=== PATIENT | female | born 1960 | race Caucasian/White ===

== ENCOUNTER 2020-08-08 11:51 | Emergency (ER) | payer OTHER, SELFPAY ==
[2020-08-08] VITALS (9 sets, daily range): BP systolic 104–126; BP diastolic 60–84; PULSE 72–92; RESP 14–18; TEMP 36.8; O2SAT 92–98; BMI 34.2
--- NOTE | 2020-08-08 | ECG_ITS ---
Test Reason : CHEST PAIN Blood Pressure : / mmHG Vent. Rate : 078 BPM Atrial Rate : 078 BPM P-R Int : 144 ms QRS Dur : 088 ms QT Int : 418 ms P-R-T Axes : 034 035 040 degrees QTc Int : 476 ms Sinus rhythm with occasional Premature ventricular complexes Abnormal ECG When compared with ECG of 24-NOV-2010 09:28, Premature ventricular complexes are now Present Referred By: Generic ED Physician Electronically Signed By:RAYO COPELAND
--- NOTE | ~2020-08-08 | XR_ITS ---
EXAMINATION: XR CHEST CLINICAL INFORMATION: Pleuritic chest pain COMPARISON: None TECHNIQUE: Frontal view of the chest was obtained. FINDINGS: No significant abnormality is noted involving the heart, lungs, mediastinum, bony thorax or soft tissues. XR/XR chest 1V IMPRESSION: Unremarkable examination.
--- NOTE | ~2020-08-08 | CT_ITS ---
EXAMINATION: CTA CHEST AND CT ABDOMEN AND PELVIS WITH CONTRAST CLINICAL INFORMATION: Epigastric discomfort. Elevated LFTs. Sclerotic chest pain. COMPARISON: Chest performed earlier today 08/08/2020. CTA chest abdomen and pelvis 01/03/2028. CTA chest 11/24/2010. TECHNIQUE: 5 mm thin axial and reformatted 5 mm thin sagittal and coronal images of chest were obtained following rapid IV administration of 100 mL Omnipaque 350. Subsequently axial 5 mm thin and reformatted 2 mm thin sagittal and coronal images of abdomen and pelvis were obtained. DLP [id number] FINDINGS: CHEST: There is good opacification of pulmonary artery and its branches without intraluminal filling defect. The pulmonary artery caliber is normal. The thoracic aorta is of normal caliber. No aneurysm or dissection seen. There is normal cervicocerebral arch branching. The central trachea and the bronchi widely patent. No abnormal-sized lymph nodes or mass seen. Heart size is normal. No pericardiac effusion seen. Thyroid lobes are symmetrical and normal. The lungs are well-expanded and clear of acute pneumonic process.. There is no pulmonary nodule, mass, consolidation or groundglass density. There is minimal compressive atelectasis in left lung base. There is no pleural effusion, calcification or thickening. There are small bilateral axilla lymph nodes. The largest left axillary lymph node measures 1.2 cm. The bony thorax is grossly unremarkable. ABDOMEN AND PELVIS: the liver is normal size, shape and diffusely hypoattenuated. No focal lesion or intrahepatic ductal dilatation seen. The gallbladder has been surgically removed. Visualized spleen, pancreas and bilateral adrenal glands are unremarkable. Both kidneys are normal size, shape and position. There is 5 mm and 1 mm nonobstructive radiopaque calculi mid pole left kidney. No additional radiopaque calculi seen. There is no caliectasis or hydronephrosis seen. The abdominal aorta is normal caliber. There is a retroaortic left renal vein There are no abnormal lymph nodes or mass seen. There is diffuse sigmoid and scattered rest the colon diagnosis without mural thickening or colonic distention. The small bowel loops are normal caliber. The appendix is normal caliber. The stomach is nondistended and appears unremarkable. Abdominal wall appears unremarkable. Imaging through the pelvis reveals unremarkable nondistended urinary bladder. The uterus is anteverted and appears unremarkable. There is 2.0-2.5 cm left ovarian cyst. A 2 cm exophytic right ovarian cyst is seen as well. No abnormal pelvic lymph nodes seen. Bone windows reveal degenerative disc changes L2-L3 and L3-L4 disc level with moderate ventral spondylosis at the L3-L4 disc level. No fracture or lytic process seen. CT/CT angio chest PE protocol IMPRESSION: No evidence of PE. No evidence of aortic aneurysm or dissection. Minimal compressive atelectasis left lower lobe. No evidence of pleural effusion or thickening. Diffuse sigmoid and scattered rest of colon diverticulosis but no evidence of diverticulitis. Nonobstructive left renal calculi.
--- NOTE | 2020-08-08 12:12 | ED.CHESTPAIN ---
HPI - Chest Pain General Chief Complaint: Chest Pain Stated Complaint: chest pain Time Seen by Provider: 08/08/20 13:18 Source: patient Mode of arrival: ambulatory Limitations: no limitations History of Present Illness HPI narrative: Patient presents to the ED for epigastric radiating to the right chest and also pleuritic chest pain. Patient states right-sided pain on deep inspiration. Patient denies any acid burning sensation, fever, chills, coughing, swelling of lower extremities, calf pain, nausea, or vomiting. Patient states was having symptoms last week then resolved on its own. Patient states last night she started having the chest pain and this morning she woke up sweating with the chest pain. Patient denies any recent trauma, any drug use, dizziness, passing out, recent surgery, recent long travel, or any estrogen hormonal/ control use. Patient does states family historyof MA. MD complaint: chest pain Related Data Home Medications Medication Instructions Recorded Confirmed atenolol 25 mg tablet 25 mg PO DAILY 01/26/20 08/08/20 atorvastatin 10 mg tablet 10 mg PO DAILY 01/26/20 08/08/20 cetirizine 10 mg tablet 10 mg PO DAILY 01/26/20 08/08/20 famotidine 20 mg tablet 20 mg PO DAILY 01/26/20 08/08/20 flu vacc [id number] 6mos up(PF) ml IM 01/26/20 08/08/20 hydrochlorothiazide 25 mg tablet 25 mg PO DAILY 01/26/20 08/08/20 hydroxyzine HCl 25 mg tablet 25 mg PO TID 01/26/20 08/08/20 losartan 25 mg tablet 25 mg PO DAILY 01/26/20 08/08/20 omeprazole 20 mg capsule,delayed 20 mg PO DAILY 01/26/20 08/08/20 release varicella-zoster glycoE [id number] 01/26/20 08/08/20 adj(PF) 50 mcg/0.5 mL IM susp, kit venlafaxine 75 mg capsule,extended 75 mg PO DAILY 01/26/20 08/08/20 release 24 hr Previous Rx's Medication Instructions Recorded lorazepam 0.5 mg tablet 0.5 mg PO BEDTIME PRN #15 tab 02/01/20 ketorolac 10 mg PO QID PRN 5 Days #20 tab 08/08/20 Allergies Allergy/AdvReac Type Severity Reaction Status Date / Time Sulfa (Sulfonamide Allergy Unknown RASH Verified 08/08/20 12:32 Antibiotics) [SULFA (SULFONAMIDE ANTIBIOTICS)] Sufa drugs Allergy Unknown unknown Uncoded 08/08/20 11:08 Sulfa drugs Allergy Unknown Unknown Uncoded 08/08/20 11:08 Review of Systems Review of Systems: Yes all other systems are reviewed and are negative Constitutional: Constitutional: Reports as per HPI and Reports no additional constitutional complaints Eyes: Eyes: Reports as per HPI and Reports no additional eye complaints ENT: Reports system reviewed and no additional complaints, except as documented and Reports as per HPI Cardiovascular: Cardiovascular: Reports as per HPI, Reports no additional cardiovascular complaints and Reports chest pain Respiratory: Respiratory: Reports as per HPI, Reports no additional respiratory complaints and Reports pain on inspiration Gastrointestinal: Gastrointestinal: Reports as per HPI, Reports no additional gastrointestinal complaints and Reports abdominal pain Genitourinary: Genitourinary: Reports no additional female genitourinary complaints and Reports as per HPI Musculoskeletal: Musculoskeletal: Reports no additional musculoskeletal complaints and Reports as per HPI Neurologic: Reports system reviewed and no additional complaints, except as documented and Reports as per HPI Psychiatric: Psychiatric: Reports no additional psychiatric complaints and Reports as per HPI [facility] Social History Social History Alcohol intake: current Alcohol intake frequency: a few times a month Smoking Status: Never smoker Use of substances other than those prescribed or required for medical reasons: No Advance Directives: No Advance Directives Information Provided: No Physical Exam Vital Signs: Vital Signs: Last Vital Signs Temp 98.3 F 08/08/20 12:05 Pulse 74 08/08/20 15:07 Resp 18 08/08/20 15:07 BP 124/75 08/08/20 15:07 Pulse Ox 92 08/08/20 15:07 Body Mass Index 34.2 Const: General: cooperative, healthy appearing, comfortable, no acute distress, well developed, alert, awake and Physically active Orientation/consciousness: patient oriented x3 HENMT: Head: Yes normal to inspection, Yes No palpable skull fracture present, Yes normocephalic and Yes atraumatic Eyes: General: appearance normal, both eyes and all related structures Neck: Neck: Yes normal visual inspection, Yes full ROM, Yes no lymphadenopathy, Yes no meningeal signs, Yes trachea midline, Yes supple and No tender Chest: Other: Positive for right chest wall tenderness on palpation. Chest palpation & inspection: normal inspection of the chest Resp: Effort & Inspection: normal respiratory effort and able to speak in complete sentences Auscultation: clear to auscultation bilaterally Cardio: Jugular venous distension: no JVD Heart sounds: S1 normal heart sound present and S2 normal heart sound present GI: Inspection: Yes normal to inspection and No abdominal wall ecchymosis Palpation (GI): Soft to palpation, not firm, nontender, no guarding and not rigid : General: No CVA tenderness and Yes no CVA tenderness Back/Spine/Pelvis: Back: no CVA tenderness, No CVA tenderness and No back tenderness Skin: General skin exam: no rashes or lesions noted and elasticity normal Neuro: General: patient oriented x3, gait normal, no meningeal signs and CN's II-XI intact bilaterally Cranial nerves: Yes CN's II-XII intact bilaterally Extrem: Other: Bilateral lower extremities negative for calf tenderness, swelling, redness, or pitting edema. General: Yes normal to inspection and Yes full ROM Psych: Appearance: grossly normal, well kempt and not disheveled Course Course Course Narrative: Patient with some sweating with chest pain may be anxiety induced been due to age will have a medical evaluation. Will have labs including troponin, and BNP, EKG. Chest x-ray will be sent. With epigastric pain/midsternal pain radiating to right side of chest will evaluate for atypical MA. Also with additional pleuritic chest pain. Evaluate for PE. Chest x-ray rule for pneumonia. Will give aspirin and nitrate although this is not typical ACS presentation. Reevaluation(s) Reevaluation #1: Patient pain did not improve with nitrates or GI cocktail. EKG negative for STEMI. First troponin was negative and BNP negative. Can not give more Nitrate due to soft blood pressure. Will send patient for chest CT a to rule out PE pneumonia and sent for abdominal CT scan to make sure there is no dilated CBD or any abdominal medical/surgical etiology. Reevaluation #2: Chest CTA negative for PE or pneumonia. Abdominal CT scan negative for abdominal/medical surgical emergent etiology. Chest x-ray negative for pneumonia. Patient vaccinated for COVID-19 so COVID swab not indicated. Awaiting for results of 2nd troponin. Due to patient still having pain after GI cocktail and 1 nitrate will give Toradol. Once again patient describes pain as pleuritic with this chest pain on inspiration. Reevaluation #3: Second troponin came back negative. Patient's epigastric and chest pain on inspiration resolved with Toradol. Diagnosis pleuritic chest pain. Patient is not having NSTEMI. EKG normal and troponins twice were negative. NOt Suspecting unstable angina due to patient's pleuritic chest pain and epigastric discomfort resolved with Toradol. Patient infromed to follow-up with PCP Dr. Ross tomorrow. MDM - Chest Pain MDM Narrative Medical decision making narrative: Pleuritic chest pain. Lab Data Result diagrams: 08/08/20 12:41 08/08/20 12:40 Labs: Lab Results 08/08/20 08/08/20 08/08/20 Range/Units 12:40 12:40 12:41 WBC 7.5 (4.8-10.8) X10*3/uL RBC 4.37 (4.20-5.50) X10*6/uL Hgb 12.7 (12.0-16.0) g/dl Hct 37.4 (37-47) % MCV 85.6 (80-98) fL MCH 29.1 (27.0-33.0) pg MCHC 34.0 (31.0-35.0) g/dl RDW 13.5 (11.0-16.0) % Plt Count 322 (160-400) X10*3/uL MPV 9.2 L (9.4-12.3) fL Immature Gran % (Auto) 0.4 (0.0-0.4) % Neut % (Auto) 58.3 (45-73) % Lymph % (Auto) 31.5 (20-40) % Mitchell % (Auto) 7.0 (2-11) % Eos % (Auto) 1.7 (0-4) % Baso % (Auto) 1.1 (0-2) % Lymph # (Auto) 2.4 (1.2-4.9) X10*3/uL Mitchell # (Auto) 0.5 (0.1-1.2) X10*3/uL Eos # (Auto) 0.1 (0.0-0.4) X10*3/uL Baso # (Auto) 0.1 (0.0-0.2) X10*3/uL Abs Immat Gran (auto) 0.03 (0.00-0.03) X10*3/uL Absolute Neuts (auto) 4.4 (2.0-8.3) X10*3/uL Absolute Nucleated RBC 0.000 (0.0-0.012) X10*3/uL Nucleated RBC % (auto) 0.0 (0.0-0.2) /100WBC PT (10.8-13.0) SEC INR (0.9-1.1) APTT (24.1-38.0) SEC Sodium 140 (135-145) mmol/L Potassium 3.3 (3.3-5.1) mmol/L Chloride 98 (96-108) mmol/L Carbon Dioxide 34 H (22-29) mmol/L Anion Gap 11 L (12-20) BUN 8 L (9-16) mg/dL Creatinine 0.75 (0.5-1.4) mg/dL Estim Creat Clear Calc 100.9 Estimated GFR > 60 Random Glucose 158 H (60-115) mg/dL Calcium 9.6 (8.4-10.2) mg/dL Total Bilirubin 0.5 (0.0-1.0) mg/dL Direct Bilirubin 0.2 (0.0-0.5) mg/dL AST 49 H (5-31) U/L ALT 57 H (0-31) U/L Alkaline Phosphatase 100 (39-117) U/L Troponin I High Sens < 3.5 (<3.5-17.0) ng/L B-Natriuretic Peptide < 10 (<100) pg/mL Total Protein 7.2 (6.5-8.0) g/dL Albumin 4.2 (3.5-5.0) g/dL Lipase 37 (8-78) U/L 08/08/20 08/08/20 Range/Units 12:41 16:20 WBC (4.8-10.8) X10*3/uL RBC (4.20-5.50) X10*6/uL Hgb (12.0-16.0) g/dl Hct (37-47) % MCV (80-98) fL MCH (27.0-33.0) pg MCHC (31.0-35.0) g/dl RDW (11.0-16.0) % Plt Count (160-400) X10*3/uL MPV (9.4-12.3) fL Immature Gran % (Auto) (0.0-0.4) % Neut % (Auto) (45-73) % Lymph % (Auto) (20-40) % Mitchell % (Auto) (2-11) % Eos % (Auto) (0-4) % Baso % (Auto) (0-2) % Lymph # (Auto) (1.2-4.9) X10*3/uL Mitchell # (Auto) (0.1-1.2) X10*3/uL Eos # (Auto) (0.0-0.4) X10*3/uL Baso # (Auto) (0.0-0.2) X10*3/uL Abs Immat Gran (auto) (0.00-0.03) X10*3/uL Absolute Neuts (auto) (2.0-8.3) X10*3/uL Absolute Nucleated RBC (0.0-0.012) X10*3/uL Nucleated RBC % (auto) (0.0-0.2) /100WBC PT 12.3 (10.8-13.0) SEC INR 1.0 (0.9-1.1) APTT 32.2 (24.1-38.0) SEC Sodium (135-145) mmol/L Potassium (3.3-5.1) mmol/L Chloride (96-108) mmol/L Carbon Dioxide (22-29) mmol/L Anion Gap (12-20) BUN (9-16) mg/dL Creatinine (0.5-1.4) mg/dL Estim Creat Clear Calc Estimated GFR Random Glucose (60-115) mg/dL Calcium (8.4-10.2) mg/dL Total Bilirubin (0.0-1.0) mg/dL Direct Bilirubin (0.0-0.5) mg/dL AST (5-31) U/L ALT (0-31) U/L Alkaline Phosphatase (39-117) U/L Troponin I High Sens < 3.5 (<3.5-17.0) ng/L B-Natriuretic Peptide (<100) pg/mL Total Protein (6.5-8.0) g/dL Albumin (3.5-5.0) g/dL Lipase (8-78) U/L ECG Data ECG #1: Interpretation: Rhythm with occasional premature ventricular complexes. Ventricular rate 78. Peer interval 144. QRS 88. QTC 476. Negative STEMI. Discharge Plan Discharge Clinical Impression: Chest pain, Pleuritic chest pain Patient Disposition: Home, Self-Care Instructions: Chest Pain (ED), Pleurisy (ED) Additional Instructions: Return to the ED immediately for worsening chest pain, shortness of breath, calf pain, coughing up blood, fever, chills, swelling of lower extremities, worsening chest pain on inspiration, or any other concerning symptoms. Check troponin and EKG came back negative for heart attack. Chest CTA and negative for blood clot or pneumonia. Abdominal CT scan came back negative for any emergent medical/surgical etiology. Your BNP came back negative for congestive heart failure. Prescriptions: New ketorolac 10 mg tablet 10 mg PO QID PRN (Reason: pain) 5 Days Qty: 20 RF: 0 No Action Shingrix (PF) 50 mcg/0.5 mL suspension for reconstitution IM RF: 0 Fluzone Quad [id number] (PF) 60 mcg (15 mcg x 4)/0.5 mL syringe IM RF: 0 omeprazole 20 mg capsule,delayed release(DR/EC) 20 mg PO DAILY RF: 0 famotidine 20 mg tablet 20 mg PO DAILY RF: 0 atenolol 25 mg tablet 25 mg PO DAILY RF: 0 hydroxyzine HCl 25 mg tablet 25 mg PO TID RF: 0 cetirizine 10 mg tablet 10 mg PO DAILY RF: 0 losartan 25 mg tablet 25 mg PO DAILY RF: 0 venlafaxine 75 mg capsule,extended release 24hr 75 mg PO DAILY RF: 0 hydrochlorothiazide 25 mg tablet 25 mg PO DAILY RF: 0 atorvastatin 10 mg tablet 10 mg PO DAILY RF: 0 lorazepam 0.5 mg tablet 0.5 mg PO BEDTIME PRN (Reason: anxiety) Qty: 15 RF: 0 Referrals: Carol Rhoades MD [Primary Care Provider] - 2 days (Pleuritic chest pain. Troponins were negative. EKG negative for STEMI. Chest CT negative for PE or pneumonia. Abdominal CT scan came back normal. Chest x-ray negative for pneumonia. BNP negative) Patricio Ross DO [Physician] - 2 days (Pleuritic chest pain. EKG negative STEMI. Troponins negative. Chest CT negative for PE or pneumonia. Abdominal CT scan came back negative for any emergent medical/surgical abdominal etiology. BNP came back negative. Pleuretic chest pain resolved with Toradol) Mehdi Ellis MD [Physician] - 2 days (Chest pain. Family history of MA. history of diabetes and high blood pressure. ) Interventions: ED Discharge Assessment Last Done: 08/08/20 17:45 Discharge Date/Time: 08/08/20 17:50 Print Language: Czech
--- NOTE | 2020-08-08 12:27 | PC.NURSE ---
PT DESCRIBING PLEURITIC RIGHT SIDED CHEST PAIN IN TERMITTENT X 2 WEEKS. WORSE WITH DEEP BREATH. LAST NIGHT WOKE IN A SWEAT. NO SOB. NO COUGH. AMBULATES WITH STEADY GAIT. SKIN PWD. NSR ON MONITOR. AWARE OF PLAN OF CARE. LS CTA.
[2020-08-08] MEDS: Aspirin Enteric Coated 325 MG TABLET.DR PO (12:32)
[2020-08-08] MEDS: Nitroglycerin 0.4 MG TAB.SUBL SUBLINGUAL (12:39)
[2020-08-08] MEDS: 0.9 % Sodium Chloride 1,000 ML 999 ML IV (12:43)
--- NOTE | 2020-08-08 12:47 | PC.NURSE ---
FEELING DIZZY FOLLOWING NITRO. REPORTS IMPROVEMENT IN CP NOW 08/15. NSR ON MONITOR. 2L NC APPLIED. SKI PWD. POSITIONED SUPINE WITH HOB AT 10DEGREES.
[2020-08-08 12:57] LABS: MANUAL DIFF FLAG NO
[2020-08-08 13:00] LABS: Basophils Absolute Auto 0.1 X10*3/uL (0.0-0.2); Basophils Percent Auto 1.1 % (0-2); Eosinophils Absolute Auto 0.1 X10*3/uL (0.0-0.4); Eosinophils Percent Auto 1.7 % (0-4); Hematocrit 37.4 % (37-47); Hemoglobin 12.7 g/dl (12.0-16.0); Imm Gran Abs Auto 0.03 X10*3/uL (0.00-0.03); Imm Gran Pct Auto 0.4 % (0.0-0.4); Lymphocytes Absolute Auto 2.4 X10*3/uL (1.2-4.9); Lymphocytes Percent Auto 31.5 % (20-40); Mean Corpuscular Hemoglobin 29.1 pg (27.0-33.0); Mean Corpuscular Volume 85.6 fL (80-98); Mean Platelet Volume 9.2 fL (9.4-12.3); Monocytes Absolute Auto 0.5 X10*3/uL (0.1-1.2); Neutrophils Absolute Auto 4.4 X10*3/uL (2.0-8.3); Neutrophils Percent Auto 58.3 % (45-73); Platelet Count 322 X10*3/uL (160-400); Red Blood Count 4.37 X10*6/uL (4.20-5.50); Red Cell Distribution Width 13.5 % (11.0-16.0); White Blood Count 7.5 X10*3/uL (4.8-10.8)
[2020-08-08 13:07] LABS: Prothrombin Time 12.3 SEC (10.8-13.0)
[2020-08-08 13:11] LABS: Partial Thromboplastin Time 32.2 SEC (24.1-38.0)
[2020-08-08 13:35] LABS: Alanine Aminotransferase 57 U/L (0-31); Albumin Level 4.2 g/dL (3.5-5.0); Alkaline Phosphatase 100 U/L (39-117); Anion Gap 11 (12-20); Aspartate Amino Transferase 49 U/L (5-31); B Type Natriuretic Peptide < 10 pg/mL (<100); Bilirubin Direct 0.2 mg/dL (0.0-0.5); Bilirubin Total 0.5 mg/dL (0.0-1.0); Blood Urea Nitrogen 8 mg/dL (9-16); Calcium 9.6 mg/dL (8.4-10.2); Carbon Dioxide 34 mmol/L (22-29); Chloride 98 mmol/L (96-108); Creatinine Clr Calc Pharmacy 100.9; Estimated Glomerular Filt Rate > 60; Glucose Random 158 mg/dL (60-115); Lipase 37 U/L (8-78); Potassium 3.3 mmol/L (3.3-5.1); Sodium 140 mmol/L (135-145); Total Protein 7.2 g/dL (6.5-8.0); Troponin-I High Sensitivity < 3.5 ng/L (<3.5-17.0)
--- NOTE | 2020-08-08 13:55 | PC.NURSE ---
BACK FROM [place]. STATES SHE DIDN'T FEEL GREAT WALKING BUT HAD STEADY GAIT AND NO INCREASE WOB. SKIN PWD. CP RYAN TO 10/15. AWARE OF PLAN FOR CTA.
[2020-08-08] MEDS: iohexoL 350 MG/ML 100 ML INFUS..BTL IV (14:16)
[2020-08-08] MEDS: Famotidine/PF 20 MG/2 ML VIAL IVPUSH (15:00)
[2020-08-08] MEDS: Lidocaine HCl Viscous 2 % 15 ML SOLUTION MUCOUS MEM (15:01)
[2020-08-08] MEDS: Magnesium Hydrox/Alum Hydrox 30 ML ORAL.SUSP PO (15:01)
[2020-08-08] MEDS: PHENobarb/Hyoscy/Atropine/Scop 10 ML ELIXIR PO (15:01)
[2020-08-08] MEDS: Ketorolac Tromethamine 30 MG/ML VIAL IVPUSH (16:14)
[2020-08-08 16:59] LABS: Troponin-I High Sensitivity < 3.5 ng/L (<3.5-17.0)
--- NOTE | 2020-08-08 17:10 | PC.NURSE ---
reports improvement in sx after torodol/ will plan for d/c and f/u with pcp in am.
== END 2020-08-08 17:50 | disposition home or self-care (01) ==
PROVIDERS: Physician Assistant; Emergency Provider Internal Medicine; PCP Internal Medicine
DX: R09.1 Pleurisy (principal); R07.9 Chest pain, unspecified
CPT/HCPCS: 36415; 71045; 71275; 74177; 80053; 80076; 82248; 83690; 83880; 84484; 85025; 85610; 85730; 93005; 96361; 96374; 96375; 99284; 99285; J1885; Q9967

== ENCOUNTER 2020-11-25 11:02 | Emergency (ER) | payer OTHER, SELFPAY ==
--- NOTE | ~2020-11-25 | XR_ITS ---
EXAMINATION: LUMBOSACRAL SPINE 3 VIEWS PELVIS WITH LEFT HIP 3 VIEWS CLINICAL INFORMATION: Pain COMPARISON: None TECHNIQUE: As above nonweightbearing FINDINGS: Advanced degenerative disc disease changes L2-L3 and L3-L4 with marked loss of the disc space and endplate marginal osteophytes. No fracture subluxation. No focal bony lesion. Imaging of the left hip and pelvis demonstrates no focal lesion. Minor trochanteric spurring. XR/XR hip LT w PEL1V IMPRESSION: Advanced generative disc disease as above. No significant left hip abnormality.
--- NOTE | ~2020-11-25 | XR_ITS ---
EXAMINATION: LUMBOSACRAL SPINE 3 VIEWS PELVIS WITH LEFT HIP 3 VIEWS CLINICAL INFORMATION: Pain COMPARISON: None TECHNIQUE: As above nonweightbearing FINDINGS: Advanced degenerative disc disease changes L2-L3 and L3-L4 with marked loss of the disc space and endplate marginal osteophytes. No fracture subluxation. No focal bony lesion. Imaging of the left hip and pelvis demonstrates no focal lesion. Minor trochanteric spurring. XR/XR lumbar spine 2-3V IMPRESSION: Advanced generative disc disease as above. No significant left hip abnormality.
[2020-11-25 11:39] VITALS: BP 129/76; PULSE 73; RESP 18; TEMP 36.7; O2SAT 100; BMI 34.8
[2020-11-25] MEDS: Ketorolac Tromethamine 15 MG/ML VIAL 30 MG IM (12:46)
[2020-11-25] MEDS: predniSONE 20 MG TABLET 60 MG PO (12:46)
--- NOTE | 2020-11-25 13:02 | ED_ITS ---
HPI - Back Pain/Injury General Chief Complaint: Extremity Problem Stated Complaint: lt leg pain Time Seen by Provider: 11/25/20 12:04 Source: patient Mode of arrival: ambulatory Limitations: no limitations History of Present Illness HPI Narrative: 60-year-old female with a past medical history of sciatica approximately 10-20 years ago presenting to the ED with complaints of atraumatic left buttock/hip pain radiating to her left leg with muscle spasms to her calf for the past week worse today. Reports that she is walking with a limp due to pain to the left buttock/hip/left leg. She denies any other symptoms complaints or concerns at this time. MD elicited complaint: back pain Pertinent past history: prior back pain Onset (ago): week(s) (For the past week worse today) Timing: constant and progressively worsening Severity: severe Pain scale (0-10): 10 Quality: sharp, dull, aching and spasming Location: lumbar spine (/left buttock/left hip) Radiation: left upper leg and left leg below the knee Exacerbating factors: immobilization, movement, supine positioning, sitting upright, walking and lifting Relieving factors: none Context: unknown Associated symptoms: denies other symptoms Treatments prior to arrival: other (She has tried [id number] medication no symptomatic relief) Work related injury: No Related Data Home Medications Medication Instructions Recorded Confirmed atenolol 25 mg tablet 25 mg PO DAILY 01/26/20 09/12/20 atorvastatin 10 mg tablet 10 mg PO DAILY 01/26/20 09/12/20 cetirizine 10 mg tablet 10 mg PO DAILY 01/26/20 09/12/20 famotidine 20 mg tablet 20 mg PO DAILY 01/26/20 09/12/20 flu vacc [id number] 6mos up(PF) ml IM 01/26/20 09/12/20 hydrochlorothiazide 25 mg tablet 25 mg PO DAILY 01/26/20 09/12/20 hydroxyzine HCl 25 mg tablet 25 mg PO TID 01/26/20 09/12/20 losartan 25 mg tablet 25 mg PO DAILY 01/26/20 09/12/20 omeprazole 20 mg capsule,delayed 20 mg PO DAILY 01/26/20 09/12/20 release varicella-zoster glycoE [id number] IM 01/26/20 09/12/20 adj(PF) 50 mcg/0.5 mL IM susp, kit venlafaxine 75 mg capsule,extended 75 mg PO DAILY 01/26/20 09/12/20 release 24 hr Previous Rx's Medication Instructions Recorded lorazepam 0.5 mg tablet 0.5 mg PO BEDTIME PRN #15 tab 02/01/20 ketorolac 10 mg tablet 10 mg PO QID PRN 5 Days #20 tab 08/08/20 amoxicillin 875 mg-potassium 1 tab PO BID #20 tab 09/12/20 clavulanate 125 mg tablet (Augmentin) fluconazole 150 mg tablet 150 mg PO Q OTHER DAY 3 Days #2 tab 09/12/20 prednisone 20 mg tablet 20 mg PO .COMPLEX #18 tab 09/12/20 acetaminophen 500 mg tablet 1,000 mg PO QID PRN #14 tab 11/25/20 (Tylenol Extra Strength) diazepam 5 mg tablet (Valium) 5 mg PO TID PRN #14 tab 11/25/20 ibuprofen 800 mg tablet 800 mg PO Q8H PRN #14 tab 11/25/20 lidocaine 5 % topical patch 1 patch TOPICAL DAILY #15 ea 11/25/20 (Lidoderm) oxycodone 5 mg tablet 5 mg PO BID PRN #10 tab 11/25/20 prednisone 20 mg tablet 40 mg PO DAILY 5 Days #10 tab 11/25/20 Allergies Allergy/AdvReac Type Severity Reaction Status Date / Time Sulfa (Sulfonamide Allergy Unknown RASH Verified 09/12/20 09:26 Antibiotics) [SULFA (SULFONAMIDE ANTIBIOTICS)] Sufa drugs Allergy Unknown unknown Uncoded 09/12/20 09:26 Sulfa drugs Allergy Unknown Unknown Uncoded 09/12/20 09:26 Review of Systems Review of Systems: Constitutional : No trauma, No Weight loss, No Fever, No Chills, ENT/Mouth : No Hearing loss, No Ear Pain, No Nasal Congestion, No Sinus Pain, No Hoarseness, No sore throat, No Rhinorrhea, No Swallowing Difficulty Cardiovascular : No Chest Pain, No SOB Respiratory : No Cough, No Dyspnea Gastrointestinal : No Nausea, No Vomiting, No Diarrhea, No abdominal Pain, No Hematochezia, No Melena Genitourinary : No Dysuria, No Urinary Frequency, No Hematuria, No Urinary or Bowel Incontinence/retention Musculoskeletal : + Back pain/left buttock/left hip pain, No neck pain, No joint stiffness, No joint swelling Skin : No Skin Lesions, No rash or signs of infection Neuro : No Weakness, No Numbness, No Paresthesias, No headache, no loss of bowel or bladder incontinence, no saddle anesthesia, Focal weakness, No radiation Denies history of IV drug usage. Yes all other systems are reviewed and are negative [facility] Past Medical History Attestation statement: The following information was validated with the patient. Social History Social History Alcohol intake: current Alcohol intake frequency: a few times a month Advance Directives: No Advance Directives Information Provided: No Patient : No Physical Exam Vital Signs: Vital Signs: Last Vital Signs Temp 98.1 F 11/25/20 11:39 Pulse 73 11/25/20 11:39 Resp 18 11/25/20 11:39 BP 129/76 11/25/20 11:39 Pulse Ox 100 11/25/20 11:39 Body Mass Index 34.8 vital signs have been reviewed as normal and appeared to be correct. Blood pressure normal. Heart rate normal. Respiration rate normal. Temperature normal. Oxygen saturation normal. Appearance: Alert. Oriented X3. No acute distress. Head: Normal external exam. Normocephalic. Atraumatic. No Aguilar signs noted. No raccoon eyes noted Eyes: PERRLA. EOMI. Conjunctiva and sclera normal. Eyelids normal. ENT: EAC normal. TM's Normal. Pharynx normal. Uvula midline. Moist mucous membranes. No trismus noted. No drooling noted. No muffled voice noted. Neck: Normal inspection. Neck supple. FROM. No adenopathy. Thyroid Normal. No meningeal signs. No neck mass noted. CVS: Normal heart rate and rhythm. Heart sound normal. No murmurs noted. Pulses normal throughout. Respiratory: No respiratory distress. Painless inspiration. Breath sounds normal. No wheezes/rales/rhonchi noted. Chest nontender. No accessory muscle usage noted or decreased air movement noted. Abdomen: Soft and nontender. Bowel sounds normal in all 4 quadrants. No distention noted. No organomegaly noted. No visible injury noted. Back: No CVA tenderness. Full range of motion noted. No obvious deformities, or edema. Mild para-spinal muscular tenderness from lumbar region to coccyx. Full ROM in back and lower extremities. 5/5 strength hip extension/flexion, abduction, adduction. Mild Lumbar pain with hip flexion against resistance. Straight leg raise test negative on right; Straight leg raise test positive on left; Reflexes normal ankle and knee bilaterally; EHL motor strength normal bilaterally. No rashes/lesion/induration/fluctuance or signs infection noted. Skin: Skin warm and dry. Normal skin color. Normal skin turgor. No rashes/lesions/lacerations noted. Extremities: No lower extremity edema. Extremities exhibit normal range of motion. Extremities nontender. Neuro: Oriented X 3. No motor deficit. No sensory deficit. Reflexes normal. Patient has a normal steady gait. Course Course Course Narrative: Pt c likely muscular pain, but could be herniated disc. Neuro exam shows no deficits. Not c/w AAA/epidural abscess/dissection.No high risk Hx (Incont, fever, immunosupp, recent surgery/LP, coag, signif trauma, wt loss, puls mass, hx/o Ca, TB, or IVDU) to warrant MRI/CT today. Not c/w Pyelo/UTI/kidney stone/spinal fx. Not cauda equina syndrome. Will obtain an x- ray of lumbar spine/left hip and if negative will DC c meds and f/u patient understands agrees with this plan. MDM - Back Pain/Injury Medical Records Attestation: I reviewed the patient's medical records. Imaging Data X-ray of lumbar spine and left hip: Attestation: I personally reviewed and interpreted this imaging study as follows: Radiologist's impression: FINDINGS: Advanced degenerative disc disease changes L2-L3 and L3-L4 with marked loss of the disc space and endplate marginal osteophytes. No fracture subluxation. No focal bony lesion. Imaging of the left hip and pelvis demonstrates no focal lesion. Minor trochanteric spurring.? XR/XR hip LT w PEL1V IMPRESSION: Advanced generative disc disease as above. No significant left hip abnormality.? Discharge Plan Discharge Clinical Impression: Sciatica of left side, Acute left lumbar radiculopathy, Degenerative disc disease, lumbar Patient Disposition: Home, Self-Care Instructions: Sciatica (ED), Lumbar Radiculopathy (ED), Degenerative Disc Disease (ED), Lower Back Exercises (ED) Prescriptions: New ibuprofen 800 mg tablet 800 mg PO Q8H PRN (Reason: pain) Qty: 14 RF: 0 prednisone 20 mg tablet 40 mg PO DAILY 5 Days Qty: 10 RF: 0 acetaminophen [Tylenol Extra Strength] 500 mg tablet 1,000 mg PO QID PRN (Reason: fever or pain) Qty: 14 RF: 0 lidocaine [Lidoderm] 5 % adhesive patch,medicated 1 patch topical DAILY Qty: 15 RF: 0 diazepam [Valium] 5 mg tablet 5 mg PO TID PRN (Reason: muscle spasm) Qty: 14 RF: 0 oxycodone 5 mg tablet 5 mg PO BID PRN (Reason: pain) Qty: 10 RF: 0 No Action ketorolac 10 mg tablet 10 mg PO QID PRN (Reason: pain) 5 Days Qty: 20 RF: 0 Shingrix (PF) 50 mcg/0.5 mL suspension for reconstitution IM RF: 0 Fluzone Quad (PF) 60 mcg (15 mcg x 4)/0.5 mL syringe IM RF: 0 omeprazole 20 mg capsule,delayed release(DR/EC) 20 mg PO DAILY RF: 0 famotidine 20 mg tablet 20 mg PO DAILY RF: 0 atenolol 25 mg tablet 25 mg PO DAILY RF: 0 hydroxyzine HCl 25 mg tablet 25 mg PO TID RF: 0 cetirizine 10 mg tablet 10 mg PO DAILY RF: 0 losartan 25 mg tablet 25 mg PO DAILY RF: 0 venlafaxine 75 mg capsule,extended release 24hr 75 mg PO DAILY RF: 0 hydrochlorothiazide 25 mg tablet 25 mg PO DAILY RF: 0 atorvastatin 10 mg tablet 10 mg PO DAILY RF: 0 lorazepam 0.5 mg tablet 0.5 mg PO BEDTIME PRN (Reason: anxiety) Qty: 15 RF: 0 prednisone 20 mg tablet 20 mg PO .COMPLEX Qty: 18 RF: 0 amoxicillin-pot clavulanate [Augmentin] 875-125 mg tablet 1 tab PO BID Qty: 20 RF: 0 fluconazole 150 mg tablet 150 mg PO Q OTHER DAY 3 Days Qty: 2 RF: 0 Referrals: Carol Rhoades MD [Primary Care Provider] - 2 days Print Language: Mauritian
== END 2020-11-25 13:28 | disposition home or self-care (01) ==
PROVIDERS: Emergency Provider Internal Medicine; PCP Internal Medicine
DX: M54.32 Sciatica, left side (principal); M51.16 Intervertebral disc disorders with radiculopathy, lumbar region; Z79.02 Long term (current) use of antithrombotics/antiplatelets; Z79.899 Other long term (current) drug therapy
CPT/HCPCS: 72100; 73502; 96372; 99284; J1885

== ENCOUNTER 2022-01-08 09:12 | Outpatient (REF) | payer OTHER, SELFPAY ==
--- NOTE | ~2022-01-08 | XR_ITS ---
EXAMINATION: XR CHEST CLINICAL INFORMATION: Bronchitis. COMPARISON: None TECHNIQUE: 2 views of the chest were obtained. FINDINGS: The lungs are well-expanded with patchy opacity seen in both lungs without any acute pneumonic process. The heart size and pulmonary vascularity is normal. No gross bony abnormality seen. XR/XR chest 2V IMPRESSION: Unremarkable chest examination.
== END 2022-01-08 09:13 | disposition home or self-care (01) ==
LOC: HO.HMGCX 09:12
PROVIDERS: PCP Internal Medicine; Visit Provider Internal Medicine
DX: J40 Bronchitis, not specified as acute or chronic (principal)
CPT/HCPCS: 71046

== ENCOUNTER 2022-01-08 10:06 | Outpatient (REF) | payer OTHER, SELFPAY ==
[2022-01-08 12:55] LABS: Influenza A PCR NEGATIVE (Negative); Influenza B PCR NEGATIVE (Negative); Resp Syncy Virus RNA Qual PCR NEGATIVE (Negative); SARS COV2 PCR INHOUSE POSITIVE (Negative)
== END 2022-01-08 10:07 | disposition home or self-care (01) ==
LOC: HO.LAB 10:06
PROVIDERS: Visit Provider Internal Medicine
DX: Z20.822 Contact with and (suspected) exposure to COVID-19 (principal); R43.9 Unspecified disturbances of smell and taste
CPT/HCPCS: 0241U

== ENCOUNTER 2022-01-10 08:54 | Emergency (ER) | payer OTHER, SELFPAY ==
--- NOTE | ~2022-01-10 | XR_ITS ---
EXAMINATION: XR CHEST CLINICAL INFORMATION: Shortness of breath positive Covid COMPARISON: 01/08/2022, 08/08/2020 TECHNIQUE: 2 views of the chest were obtained. FINDINGS: Once again mild left basilar atelectasis. The right lung is comparable to previous. No failure or effusion. The cardiac silhouette is within normal limits. Tortuous versus ectatic arch and descending aorta are once again noted. Scoliosis convex right. No effusion is seen. XR/XR chest 2V IMPRESSION: Mild left basilar atelectasis.
[2022-01-10 09:08] VITALS: BP 112/76; PULSE 100; RESP 19; TEMP 37.7; O2SAT 93; BMI 34.2
--- NOTE | 2022-01-10 10:08 | ECG_ITS ---
Test Reason : sob Blood Pressure : / mmHG Vent. Rate : 086 BPM Atrial Rate : 086 BPM P-R Int : 136 ms QRS Dur : 086 ms QT Int : 408 ms P-R-T Axes : 019 045 047 degrees QTc Int : 488 ms Normal sinus rhythm Nonspecific ST abnormality Abnormal ECG When compared with ECG of 08-AUG-2020 11:57, Premature ventricular complexes are no longer Present Referred By: Rossana Ovalle Electronically Signed By:CAESAR DODSON
--- NOTE | 2022-01-10 10:21 | ED_ITS ---
HPI - URI/Sore Throat General Chief Complaint: Upper Respiratory Symptoms Stated Complaint: covid + bodyache sore throat Time Seen by Provider: 01/10/22 09:35 Source: patient Mode of arrival: ambulatory History of Present Illness HPI Narrative: 61-year-old female COVID-19 positive on Saturday presenting to the ED complaining of headache, chills, myalgias/body aches, chest pain, SOB, chest wall discomfort when coughing, and sore throat with painful swallowing. Reports decreased p.o. intake secondary to sore throat. Was started on Azithromycin, Albuterol inhaler, and Paxlovid without much relief. Denies fever, abdominal pain, nausea/vomiting, diarrhea, recent travel MD elicited complaint: cough, sore throat, rhinorrhea and nasal congestion Onset (ago): day(s) Consistency: constant Related Data Home Medications Medication Instructions Recorded Confirmed atenolol 25 mg tablet 25 mg PO DAILY 01/26/20 09/12/20 atorvastatin 10 mg tablet 10 mg PO DAILY 01/26/20 09/12/20 cetirizine 10 mg tablet 10 mg PO DAILY 01/26/20 09/12/20 famotidine 20 mg tablet 20 mg PO DAILY 01/26/20 09/12/20 flu vacc [id number] 6mos up(PF) 60 ml IM 01/26/20 09/12/20 mcg(15 mcgx4)/0.5 mL IM syringe hydrochlorothiazide 25 mg tablet 25 mg PO DAILY 01/26/20 09/12/20 hydroxyzine HCl 25 mg tablet 25 mg PO TID 01/26/20 09/12/20 losartan 25 mg tablet 25 mg PO DAILY 01/26/20 09/12/20 omeprazole 20 mg capsule,delayed 20 mg PO DAILY 01/26/20 09/12/20 release varicella-zoster glycoE [id number] IM 01/26/20 09/12/20 adj(PF) 50 mcg/0.5 mL IM susp, kit venlafaxine 75 mg capsule,extended 75 mg PO DAILY 01/26/20 09/12/20 release 24 hr Previous Rx's Medication Instructions Recorded lorazepam 0.5 mg tablet 0.5 mg PO BEDTIME PRN anxiety #15 02/01/20 tabs ketorolac 10 mg tablet 10 mg PO QID PRN pain 5 days #20 08/08/20 tabs amoxicillin 875 mg-potassium 1 tab PO BID #20 tabs 09/12/20 clavulanate 125 mg tablet (Augmentin) fluconazole 150 mg tablet 150 mg PO Q OTHER DAY 3 days #2 09/12/20 tabs prednisone 20 mg tablet 20 mg PO .COMPLEX #18 tabs 09/12/20 acetaminophen 500 mg tablet 1,000 mg PO QID PRN fever or pain 11/25/20 (Tylenol Extra Strength) #14 tabs diazepam 5 mg tablet (Valium) 5 mg PO TID PRN muscle spasm #14 11/25/20 tabs ibuprofen 800 mg tablet 800 mg PO Q8H PRN pain #14 tabs 11/25/20 lidocaine 5 % topical patch 1 patch topical DAILY pain #15 ea 11/25/20 (Lidoderm) oxycodone 5 mg tablet 5 mg PO BID PRN pain #10 tabs 11/25/20 prednisone 20 mg tablet 40 mg PO DAILY rash 5 days #10 tabs 11/25/20 azithromycin 250 mg tablet See Rx Instructions PO .COMPLEX #6 01/08/22 tabs albuterol sulfate 90 mcg/actuation 2 puff inhalation Q4-6H PRN 01/10/22 aerosol inhaler shortness of breath or wheezing #6.7 grams [id number]-vltfpcbosyjne-eobzsdnp 1 cap PO Q4-6H PRN headache #14 01/10/22 50 mg-300 mg-40 mg capsule caps (Fioricet) lidocaine HCl 2 % mucosal solution 5 ml mucous membrane BID PRN pain 01/10/22 (Lidocaine Viscous) #100 mL Allergies Allergy/AdvReac Type Severity Reaction Status Date / Time Sulfa (Sulfonamide Allergy Unknown RASH Verified 01/08/22 08:49 Antibiotics) [SULFA (SULFONAMIDE ANTIBIOTICS)] Sufa drugs Allergy Unknown unknown Uncoded 01/08/22 08:49 Sulfa drugs Allergy Unknown Unknown Uncoded 01/08/22 08:49 Review of Systems Review of Systems: Constitutional: No Fever, + Chills, No Night Sweats, No Fatigue, + Malaise ENT/Mouth: + Ear Pain, + Nasal Congestion, No Sinus Pain, No Hoarseness, + sore throat, + Rhinorrhea, + Swallowing Difficulty Eyes: No Eye Pain, No Swelling, No Redness, No Vision Changes Cardiovascular: + Chest Pain, + SOB, No Dyspnea on Exertion, No Orthopnea, No Edema, No Palpitations Respiratory: + Cough, No Sputum, No Wheezing, No Dyspnea Gastrointestinal: No Nausea, No Vomiting, No Diarrhea, No Constipation, No Abdominal pain Genitourinary: No Dysuria, No Urinary Frequency, No Hematuria, No Flank Pain Musculoskeletal: No joint pain, + Myalgias, No Joint Swelling Skin: No Skin Lesions, No rash Neuro: +generalized Weakness, No Numbness, No Paresthesias, No Loss of Consciousness, No Dizziness, + Headache Yes all other systems are reviewed and are negative Constitutional: Constitutional: Reports as per [facility] Past Medical History Attestation statement: The following information was validated with the patient. Social History Social History Alcohol intake: current Alcohol intake frequency: a few times a month Advance Directives: No Physical Exam Vital Signs: Vital Signs: Last Vital Signs Temp 98.1 F 01/10/22 13:55 Pulse 69 01/10/22 13:55 Resp 20 01/10/22 13:55 BP 113/63 01/10/22 13:55 Pulse Ox 94 01/10/22 14:06 O2 Del Method 01/10/22 13:56 BMI result Body Mass Index 34.2 Const: General: cooperative, healthy appearing, no acute distress and well developed Orientation/consciousness: patient oriented x3 Limitations: no limitations HEENT: Head: Yes normal to inspection and Yes atraumatic Ears: hearing grossly normal bilaterally, external ears normal and TM's normal bilaterally General nose exam: Normal external nose present Face and sinus: Yes normal facial exam Mouth: Normal oral and palatal mucosa present Throat: Yes uvula midline, Yes abnormal tonsil (+ bilateral tonsillar swelling/erythema, no exudates.), Yes posterior oropharynx abnormal (Erythematous), No uvula laterally displaced and No uvular edema Eyes: General: appearance normal, both eyes and all related structures EOM: EOMs intact bilaterally Neck: Other: + bilateral submandibular lymphadenopathy Neck: Yes normal visual inspection, Yes full ROM and Yes no meningeal signs Resp: Effort & Inspection: normal respiratory effort and no respiratory distress Auscultation: clear to auscultation bilaterally, no crackles, no rales and no rhonchi Cardio: Rate: regular rate Heart sounds: S1 normal heart sound present and S2 normal heart sound present GI: Inspection: Yes normal to inspection Palpation (GI): Soft to palpation, nontender, no guarding and not rigid : General: Yes no CVA tenderness Back/Spine/Pelvis: Back: no CVA tenderness Skin: Rashes: no rashes Wounds: no wounds Neuro: General: patient oriented x3, tone normal and no meningeal signs Gait exam (Neuro): Normal gait present Extrem: General: Yes normal to inspection, Yes no pedal edema and Yes no calf tenderness Course Course Course Narrative: --COVID-19 positive on 01/08/2022 XR chest 2V IMPRESSION: Mild left basilar atelectasis. --no leukocytosis. AST/ALT acute on chronically elevated (higher than priors). Troponin negative. UA not infected > patient maintained an O2 sat 94% on RA while ambulating in the ED -patient tolerated p.o. apple juice. Results discussed with patient including worrisome signs and symptoms and strict return precautions, and when to return to the emergency department. They verbalized understanding and feel safe for discharge at this time. MDM - URI/Sore Throat MDM Narrative Medical decision making narrative: 61-year-old female COVID-19 positive on Saturday presenting to the ED complaining of headache, chills, myalgias/body aches, chest pain, SOB, chest wall discomfort when coughing, and sore throat with painful swallowing. On exam low-grade temp of 100 degrees, satting 93% on RA, lungs CTA, oropharynx with noted erythema and tonsillar swelling, no exudates, uvula midline. No pedal edema. Concern for continued COVID-19 symptoms vs viral pneumonia and dehydration. Rule out ACS. Low suspicion for PE. No evidence of [employer] Plan: EKG, labs, CXR, rapid strep, IVF, p.o. Decadron, viscous lidocaine, PO Motrin/Fioricet Differential Diagnosis Differential diagnosis: Likely upper respiratory infection, viral infection, bronchitis, influenza and pharyngitis Medical Records Attestation: I reviewed the patient's medical records. Lab Data Attestation: I reviewed the patient's lab results. Result diagrams: 01/10/22 11:11 01/10/22 12:21 Labs: Lab Results 01/10/22 01/10/22 01/10/22 Range/Units 11:10 11:11 11:11 WBC 9.0 (4.8-10.8) X10*3/uL RBC 4.71 (4.20-5.50) X10*6/uL Hgb 13.1 (12.0-16.0) g/dl Hct 39.2 (37.0-47.0) % MCV 83.2 (80.0-98.0) fL MCH 27.8 (27.0-33.0) pg MCHC 33.4 (31.0-35.0) g/dl RDW 13.8 (11.0-16.0) % Plt Count 288 (160-400) X10*3/uL MPV 9.0 L (9.4-12.3) fL Immature Gran % (Auto) 0.2 (0.0-0.4) % Neut % (Auto) 69.7 (45-73) % Lymph % (Auto) 18.4 L (20-40) % [place] % (Auto) 11.1 H (2-11) % Eos % (Auto) 0.0 (0-4) % Baso % (Auto) 0.6 (0-2) % Lymph # (Auto) 1.7 (1.2-4.9) X10*3/uL [place] # (Auto) 1.0 (0.1-1.2) X10*3/uL Eos # (Auto) 0.0 (0.0-0.4) X10*3/uL Baso # (Auto) 0.1 (0.0-0.2) X10*3/uL Abs Immat Gran (auto) 0.02 (0.00-0.03) X10*3/uL Absolute Neuts (auto) 6.3 (2.0-8.3) x10*3/uL Absolute Nucleated RBC 0.000 (0.0-0.012) X10*3/uL Nucleated RBC % (auto) 0.0 (0.0-0.2) /100WBC Sodium (135-145) mmol/L Potassium (3.3-5.1) mmol/L Chloride (96-108) mmol/L Carbon Dioxide (22-29) mmol/L Anion Gap (12-20) BUN (9-16) mg/dL Creatinine (0.5-1.4) mg/dL Estim Creat Clear Calc Estimated GFR Random Glucose (60-115) mg/dL Calcium (8.4-10.2) mg/dL Magnesium (1.6-2.6) mg/dL Total Bilirubin (0.0-1.0) mg/dL Direct Bilirubin (0.0-0.5) mg/dL AST (5-31) U/L ALT (0-31) U/L Alkaline Phosphatase (39-117) U/L Troponin I High Sens < 3.5 (<3.5-17.0) ng/L Total Protein (6.5-8.0) g/dL Albumin (3.5-5.0) g/dL Urine Color Urine Appearance Urine pH (5.0-9.0) Ur Specific [place] (1.005-1.025) Urine Protein (Neg-Trace) mg/dL Urine Glucose (UA) (Negative) mg/dL Urine Ketones (Negative) mg/dL Urine Blood (Negative) Urine Nitrite (Negative) Ur Leukocyte Esterase (Negative) Urine RBC (0-2) /HPF Urine WBC (0-5) /HPF Ur Squamous Epith Cells (0-2) /HPF Urine Bacteria (None Seen) Hyaline Casts (0-2) /LPF S. pyogenes GrpA LILLY Negative (Negative) 01/10/22 01/10/22 Range/Units 11:33 12:21 WBC (4.8-10.8) X10*3/uL RBC (4.20-5.50) X10*6/uL Hgb (12.0-16.0) g/dl Hct (37.0-47.0) % MCV (80.0-98.0) fL MCH (27.0-33.0) pg MCHC (31.0-35.0) g/dl RDW (11.0-16.0) % Plt Count (160-400) X10*3/uL MPV (9.4-12.3) fL Immature Gran % (Auto) (0.0-0.4) % Neut % (Auto) (45-73) % Lymph % (Auto) (20-40) % [place] % (Auto) (2-11) % Eos % (Auto) (0-4) % Baso % (Auto) (0-2) % Lymph # (Auto) (1.2-4.9) X10*3/uL [place] # (Auto) (0.1-1.2) X10*3/uL Eos # (Auto) (0.0-0.4) X10*3/uL Baso # (Auto) (0.0-0.2) X10*3/uL Abs Immat Gran (auto) (0.00-0.03) X10*3/uL Absolute Neuts (auto) (2.0-8.3) x10*3/uL Absolute Nucleated RBC (0.0-0.012) X10*3/uL Nucleated RBC % (auto) (0.0-0.2) /100WBC Sodium 135 (135-145) mmol/L Potassium 3.3 (3.3-5.1) mmol/L Chloride 98 (96-108) mmol/L Carbon Dioxide 25 (22-29) mmol/L Anion Gap 15 (12-20) BUN 10 (9-16) mg/dL Creatinine 0.73 (0.5-1.4) mg/dL Estim Creat Clear Calc 101.1 Estimated GFR > 60 Random Glucose 126 H (60-115) mg/dL Calcium 8.4 D (8.4-10.2) mg/dL Magnesium 1.7 (1.6-2.6) mg/dL Total Bilirubin 0.5 (0.0-1.0) mg/dL Direct Bilirubin 0.2 (0.0-0.5) mg/dL AST 93 H (5-31) U/L ALT 98 H (0-31) U/L Alkaline Phosphatase 94 (39-117) U/L Troponin I High Sens (<3.5-17.0) ng/L Total Protein 6.7 (6.5-8.0) g/dL Albumin 3.9 (3.5-5.0) g/dL Urine Color Yellow Urine Appearance Clear Urine pH 6.0 (5.0-9.0) Ur Specific [place] 1.015 (1.005-1.025) Urine Protein 30 (1+) H (Neg-Trace) mg/dL Urine Glucose (UA) Negative (Negative) mg/dL Urine Ketones Trace (Negative) mg/dL Urine Blood Negative (Negative) Urine Nitrite Negative (Negative) Ur Leukocyte Esterase Trace H (Negative) Urine RBC 0-2 (0-2) /HPF Urine WBC 0-5 (0-5) /HPF Ur Squamous Epith Cells 0-2 (0-2) /HPF Urine Bacteria None Seen (None Seen) Hyaline Casts 0-2 (0-2) /LPF S. pyogenes GrpA LILLY (Negative) ECG Data Attestation: I personally reviewed and interpreted this ECG as follows: ECG interpretation date: 01/10/22 ECG interpretation time: :19 Interpretation: EKG normal sinus rhythm at a rate of 86. Pr interval 136. No STEMI/nonischem ic. Discharge Plan Discharge Clinical Impression: COVID-19 Patient Disposition: Home, Self-Care Instructions: COVID-19 (Coronavirus Disease 2019) (ED) Additional Instructions: Your x-ray does not show pneumonia. Her blood work was reassuring. Her urine is not infected You tested negative for strep throat. Continue taking previously prescribed antibiotic & Paxlovid Albuterol inhaler will help with shortness of breath/wheezing. Viscous lidocaine will help with her throat pain. Additionally there are uczk-wii-kftebpj sprays. Make sure you are drinking plenty of fluids. Take Tylenol and Motrin as needed. follow-up with your doctor. Continue to isolate following COVID-19 protocol If symptoms persist or worsen, you develop constant worsening chest pain/shortness of breath, fever unresolved with medications or your unable to swallow return to the emergency department Prescriptions: New tbwssrnchu-ohjycjlhovmlj-nzci [Fioricet] 50-300-40 mg capsule 1 cap PO Q4-6H PRN (Reason: headache) Qty: 14 0RF lidocaine HCl [Lidocaine Viscous] 2 % solution 5 ml mucous membrane BID PRN (Reason: pain) Qty: 100 0RF albuterol sulfate 90 mcg/actuation HFA aerosol inhaler 2 puff inhalation Q4-6H PRN (Reason: shortness of breath or wheezing) Qty: 6.7 0RF No Action ibuprofen 800 mg tablet 800 mg PO Q8H PRN (Reason: pain) Qty: 14 0RF prednisone 20 mg tablet 40 mg PO DAILY 5 Days Qty: 10 0RF acetaminophen [Tylenol Extra Strength] 500 mg tablet 1,000 mg PO QID PRN (Reason: fever or pain) Qty: 14 0RF lidocaine [Lidoderm] 5 % adhesive patch,medicated 1 patch topical DAILY Qty: 15 0RF Rx Instructions: leave on most painful area for up to 12 hrs. May be substituted diazepam [Valium] 5 mg tablet 5 mg PO TID PRN (Reason: muscle spasm) Qty: 14 0RF oxycodone 5 mg tablet 5 mg PO BID PRN (Reason: pain) Qty: 10 0RF ketorolac 10 mg tablet 10 mg PO QID PRN (Reason: pain) 5 Days Qty: 20 0RF Rx Instructions: Patient received 30 mg IV Toradol in the ED. Shingrix (PF) 50 mcg/0.5 mL suspension for reconstitution IM Fluzone Quad (PF) 60 mcg (15 mcg x 4)/0.5 mL syringe IM omeprazole 20 mg capsule,delayed release(DR/EC) 20 mg PO DAILY famotidine 20 mg tablet 20 mg PO DAILY atenolol 25 mg tablet 25 mg PO DAILY hydroxyzine HCl 25 mg tablet 25 mg PO TID cetirizine 10 mg tablet 10 mg PO DAILY losartan 25 mg tablet 25 mg PO DAILY venlafaxine 75 mg capsule,extended release 24hr 75 mg PO DAILY hydrochlorothiazide 25 mg tablet 25 mg PO DAILY atorvastatin 10 mg tablet 10 mg PO DAILY lorazepam 0.5 mg tablet 0.5 mg PO BEDTIME PRN (Reason: anxiety) Qty: 15 0RF prednisone 20 mg tablet 20 mg PO .COMPLEX Qty: 18 0RF Rx Instructions: 20 mg PO 3 p.o. daily for 3 days followed by 2 p.o. daily for 3 days followed by 1 p.o. daily for 3 days; amoxicillin-pot clavulanate [Augmentin] 875-125 mg tablet 1 tab PO BID Qty: 20 0RF fluconazole 150 mg tablet 150 mg PO Q OTHER DAY 3 Days Qty: 2 0RF Rx Instructions: administer on day 1 of therapy azithromycin 250 mg tablet See Rx Instructions PO .COMPLEX Qty: 6 0RF Rx Instructions: take 500 mg today (day 1), then 250 mg for 4 days (days 2-5) PO Referrals: Carol Rhoades MD [Primary Care Provider] - 1 week
[2022-01-10 11:15] LABS: MANUAL DIFF FLAG NO
[2022-01-10] MEDS: 0.9 % Sodium Chloride 1,000 ML 999 ML IV (11:18)
[2022-01-10] MEDS: dexAMETHasone sod phosphate 10 MG/ML VIAL IVPUSH (11:19)
[2022-01-10] MEDS: Ibuprofen 600 MG TABLET PO (11:19)
[2022-01-10] MEDS: Lidocaine HCl Viscous 2 % 15 ML SOLUTION MUCOUS MEM (11:19)
[2022-01-10] MEDS: Butalb/Acetamin/Caff 50/325/40 TABLET 1 TAB PO (11:19)
[2022-01-10 11:20] LABS: Basophils Absolute Auto 0.1 X10*3/uL (0.0-0.2); Basophils Percent Auto 0.6 % (0-2); Hematocrit 39.2 % (37.0-47.0); Hemoglobin 13.1 g/dl (12.0-16.0); Imm Gran Abs Auto 0.02 X10*3/uL (0.00-0.03); Imm Gran Pct Auto 0.2 % (0.0-0.4); Lymphocytes Absolute Auto 1.7 X10*3/uL (1.2-4.9); Lymphocytes Percent Auto 18.4 % (20-40); Mean Corpuscular HGB Conc 33.4 g/dl (31.0-35.0); Mean Corpuscular Hemoglobin 27.8 pg (27.0-33.0); Mean Corpuscular Volume 83.2 fL (80.0-98.0); Monocytes Percent Auto 11.1 % (2-11); Neutrophils Absolute Auto 6.3 x10*3/uL (2.0-8.3); Neutrophils Percent Auto 69.7 % (45-73); Platelet Count 288 X10*3/uL (160-400); Red Blood Count 4.71 X10*6/uL (4.20-5.50); Red Cell Distribution Width 13.8 % (11.0-16.0)
[2022-01-10 11:25] LABS: Strep A Nucleic Acid Negative (Negative)
--- NOTE | 2022-01-10 11:31 | PC.NURSE ---
patient awake and alert. skin pwd, resp even and nonlabored. speaking in full, clear sentences. covid positive. c/o headache and sore throat w/ difficulty swallowing. spitting out phlegm. medicated as ordered. patient able to swallow pills w/ no issue.
[2022-01-10 11:41] LABS: Troponin-I High Sensitivity < 3.5 ng/L (<3.5-17.0)
[2022-01-10 11:44] LABS: Appearance Urine Clear; Color Urine Yellow; Glucose Urine UA Negative (Negative); Leukocyte Esterase Urine Trace (Negative); Nitrite Urine Negative (Negative); Specific Gravity - Urine 1.015 (1.005-1.025); UMIC TRIGGER UACC YES; Urine Blood Negative (Negative); Urine Ketones Trace mg/dL (Negative); Urine Protein 30 (1+) mg/dL (Neg-Trace)
[2022-01-10 11:47] LABS: Bacteria Urine None Seen (None Seen); Hyaline Casts Urine 0-2 /LPF (0-2); RBC Urine 0-2 /HPF (0-2); Squamous Epithelial Cell Urine 0-2 /HPF (0-2); WBC Urine 0-5 /HPF (0-5)
[2022-01-10 12:49] LABS: Alanine Aminotransferase 98 U/L (0-31); Albumin Level 3.9 g/dL (3.5-5.0); Alkaline Phosphatase 94 U/L (39-117); Anion Gap 15 (12-20); Aspartate Amino Transferase 93 U/L (5-31); Bilirubin Direct 0.2 mg/dL (0.0-0.5); Bilirubin Total 0.5 mg/dL (0.0-1.0); Blood Urea Nitrogen 10 mg/dL (9-16); Calcium 8.4 mg/dL (8.4-10.2); Carbon Dioxide 25 mmol/L (22-29); Chloride 98 mmol/L (96-108); Creatinine Clr Calc Pharmacy 101.1; Estimated Glomerular Filt Rate > 60; Glucose Random 126 mg/dL (60-115); Magnesium 1.7 mg/dL (1.6-2.6); Potassium 3.3 mmol/L (3.3-5.1); Sodium 135 mmol/L (135-145); Total Protein 6.7 g/dL (6.5-8.0)
[2022-01-10 13:55] VITALS: BP 113/63; PULSE 69; RESP 20; TEMP 36.7; O2SAT 95
[2022-01-10 13:56] VITALS: O2SAT 95
[2022-01-10] MEDS: Lidocaine HCl 4 % Laryng-O-Jet 4 ML 1 APPL TOPICAL (14:00)
[2022-01-10 14:06] VITALS: O2SAT 94
== END 2022-01-10 15:36 | disposition home or self-care (01) ==
PROVIDERS: Physician Assistant; Emergency Provider Emergency Medicine; PCP Internal Medicine
DX: U07.1 COVID-19 (principal); R06.02 Shortness of breath; M79.10 Myalgia, unspecified site; Z79.899 Other long term (current) drug therapy
CPT/HCPCS: 36415; 71046; 80048; 80076; 81001; 83735; 84484; 85025; 87651; 93005; 96361; 96374; 99284; J1100

== ENCOUNTER → 2022-07-03 10:53 | Outpatient (BNVA) | payer OTHER, SELFPAY | PROVIDERS: PCP Internal Medicine; Referring Provider Internal Medicine; Visit Provider Physician Assistant Surgical ==

== ENCOUNTER → 2022-08-01 08:14 | Outpatient (BNVA) | payer OTHER, SELFPAY | PROVIDERS: PCP Internal Medicine; Visit Provider Internal Medicine Rheumatology | DX: M79.641 Pain in right hand (principal); M79.642 Pain in left hand; M25.561 Pain in right knee; M25.562 Pain in left knee; M19.041 Primary osteoarthritis, right hand; M19.042 Primary osteoarthritis, left hand | CPT/HCPCS: 99212 ==

== ENCOUNTER 2022-08-01 09:33 | Outpatient (REF) | payer OTHER, SELFPAY ==
[2022-08-01 11:07] LABS: C Reactive Protein 1.26 mg/dL (< or = 0.50)
[2022-08-01 11:44] LABS: Erythrocyte Sedimentation Rate 19 MM/HR (0-20)
== END 2022-08-01 09:34 | disposition home or self-care (01) ==
LOC: HO.10HDL 09:33
PROVIDERS: Visit Provider Internal Medicine Rheumatology
DX: M19.041 Primary osteoarthritis, right hand (principal); M19.042 Primary osteoarthritis, left hand; M79.672 Pain in left foot; M79.671 Pain in right foot; M25.561 Pain in right knee; M25.562 Pain in left knee
CPT/HCPCS: 36415; 85652; 86140

== ENCOUNTER 2023-07-27 14:47 | Emergency (ER) | payer MEDICARE, MEDICAID, SELFPAY ==
--- NOTE | ~2023-07-27 | CT_ITS ---
EXAMINATION: CT ABDOMEN AND PELVIS WITH CONTRAST CLINICAL INFORMATION: Epigastric pain COMPARISON: Previous CT of the abdomen and pelvis most recent August 2020 TECHNIQUE: Multidetector volumetric images were obtained from the superior aspect of the liver through the pubic symphysis following administration 85 mL of Omnipaque 350 intravenous contrast. Sagittal and coronal reformatted images were obtained on the technologist's workstation. Oral contrast: Yes This CT examination was performed using dose optimization techniques as appropriate, variously including the following: *Automated exposure control *Adjustment of mA and/or kV according to patient size (this includes techniques or standardized protocols for targeted exams where dose is matched to indication/reason for exam; i.e. extremities or head) *Use of iterative reconstruction technique DLP: 719 mGy-cm FINDINGS: LUNG BASES: The visualized lung bases are unremarkable. LIVER, GALLBLADDER, AND BILIARY TREE: The liver is normal in size, shape, and attenuation. No focal hepatic lesion or biliary ductal dilatation is present. The gallbladder has been removed. PANCREAS: Small 5 mm fatty lesion in the body of the pancreas probably representing a benign lipoma. This is similar to previous exam. SPLEEN: Unremarkable. ADRENAL GLANDS: Unremarkable. KIDNEYS AND URETERS: The kidneys are normal in size, shape, and attenuation. No hydronephrosis, hydroureter. 3 small left renal stones, largest measuring 3 mm. Small right renal cyst. No imaging follow-up recommended. No perinephric stranding. BLADDER: Unremarkable. GASTROINTESTINAL TRACT: Diverticulosis of the colon. No evidence of diverticulitis. The small and large bowel are otherwise unremarkable. The appendix is unremarkable. The stomach is unremarkable. ABDOMINAL WALL: No significant hernia is appreciated. LYMPH NODES: Normal. VASCULAR: Unremarkable. PELVIC VISCERA: Small bilateral ovarian cysts largest on the left measuring 2 cm similar to previous exam. This most likely represent benign functional cysts. No imaging follow-up recommended. OSSEOUS STRUCTURES: Degenerative disc disease at L3-L4 and L2-L3. CT/CT abdomen pelvis w IV con IMPRESSION: No acute findings. Diverticulosis. No evidence of diverticulitis. Small left renal stones. Small fatty lesion in the body the pancreas likely representing a benign lipoma similar to previous exams. Small bilateral ovarian cysts similar to previous exams. Fleischner guidelines were followed.
--- NOTE | ~2023-07-27 | XR_ITS ---
EXAMINATION: XR CHEST CLINICAL INFORMATION: Chest discomfort COMPARISON: Chest CT on 01/10/2022 TECHNIQUE: 2 views of the chest were obtained. FINDINGS: No significant abnormality is noted involving the heart, lungs, mediastinum, bony thorax or soft tissues. XR/XR chest 2V IMPRESSION: Unremarkable examination.
--- NOTE | 2023-07-27 14:49 | ECG_ITS ---
Test Reason : CP Blood Pressure : / mmHG Vent. Rate : 085 BPM Atrial Rate : 085 BPM P-R Int : 136 ms QRS Dur : 080 ms QT Int : 404 ms P-R-T Axes : 016 018 051 degrees QTc Int : 480 ms Normal sinus rhythm Nonspecific T wave abnormality Abnormal ECG When compared with ECG of 10-JAN-2022 11:19, Nonspecific ST and T wave abnormality more prominent Referred By: Paradise James Electronically Signed By:RAYO COPELAND
--- NOTE | 2023-07-27 14:59 | ED_ITS ---
HPI - Chest Pain General Chief Complaint: General Medical Stated Complaint: chest pain Time Seen by Provider: 07/27/23 16:02 Source: patient and RN notes reviewed Mode of arrival: ambulatory Limitations: no limitations History of Present Illness HPI narrative: This is a 62-year-old female, with a history of diabetes, hypertension, and hyperlipidemia, who presents emergency department for evaluation of epigastric pain and sore throat. Patient states that over the last week she had the ?stomach flu? and had consistent nausea and vomiting. She states that this has since resolved. She states that over the last day she has had a sore throat and ongoing epigastric pain. She states that she previously was on omeprazole, and states that her primary care physician placed her back on famotidine which has been helping her with her symptoms however states that since this morning her sore throat has worsened. She denies any fevers or chills. She does endorse night sweats. She denies chest pain, shortness for breath, abdominal pain, nausea, vomiting or diarrhea. No urinary symptoms. No other complaints or concerns at this time Onset (ago): day(s) Timing of current episode: constant Prior episodes: No Pain radiation: none Exacerbating factors: nothing Treatment prior to arrival: none Risk Factors Coronary artery disease risk factors: none Thoracic aortic dissection risk factors: none Related Data Home Medications ?Medication ?Instructions ?Recorded ?Confirmed atenolol 25 mg tablet 25 mg PO DAILY 01/26/20 09/12/20 atorvastatin 10 mg tablet 10 mg PO DAILY 01/26/20 09/12/20 cetirizine 10 mg tablet 10 mg PO DAILY 01/26/20 09/12/20 famotidine 20 mg tablet 20 mg PO DAILY 01/26/20 09/12/20 hydrochlorothiazide 25 mg tablet 25 mg PO DAILY 01/26/20 09/12/20 hydroxyzine HCl 25 mg tablet 25 mg PO TID 01/26/20 09/12/20 losartan 25 mg tablet 25 mg PO DAILY 01/26/20 09/12/20 venlafaxine 75 mg capsule,extended 75 mg PO DAILY 01/26/20 09/12/20 release 24 hr cholecalciferol (vitamin D3) 50 50 mcg PO DAILY 07/03/22 mcg (2,000 unit) tablet fluticasone propionate 50 2 spray intranasal DAILY 03/28/23 mcg/actuation nasal spray,suspension mecobalamin (vitamin B12) 1,000 1,000 mcg PO DAILY 07/03/22 mcg lozenges montelukast 10 mg tablet 10 mg PO BEDTIME 07/03/22 Previous Rx's ?Medication ?Instructions ?Recorded albuterol sulfate 90 mcg/actuation 2 puff inhalation Q4-6H PRN 01/10/22 aerosol inhaler shortness of breath or wheezing #6.7 grams diclofenac sodium 1 % topical gel 2 g topical BID #100 grams 08/01/22 benzocaine 15 mg-menthol 3.6 mg 1 renny mucous membrane Q2-4H PRN 07/27/23 lozenges (Cepacol Sore Throat sore throat #16 ea (benzocaine-menthol)) ondansetron 4 mg disintegrating 4 mg PO Q6-8H PRN nausea and 07/27/23 tablet vomiting #14 tabs pantoprazole 20 mg tablet,delayed 20 mg PO DAILY 2 weeks #14 tabs 07/27/23 release phenol 1.4 % mucosal aerosol spray 4 spray mucous membrane Q4H PRN 07/27/23 (Chloraseptic Throat Stone[place]) sore throat #20 mL Allergies Allergy/AdvReac Type Severity Reaction Status Date / Time Sulfa (Sulfonamide Allergy Unknown RASH Verified 07/27/23 15:04 Antibiotics) [SULFA (SULFONAMIDE ANTIBIOTICS)] Review of Systems 2 Review of Systems: Yes all other systems are reviewed and are negative Constitutional: Constitutional: Reports as per [facility] Past Medical History Surgical History S/P removal of right ovary Hx of cholecystectomy Family History Family History Mother Heart problem Diabetes Alzheimer disease Dementia Father Diabetes Kidney disease Liver disease Social History Social History Household Members: None Alcohol intake: current Alcohol intake frequency: holidays/special occasions only Patient Tobacco Use Status: Never used Tobacco Smoked in Last 30 Days: No Use of substances other than those prescribed or required for medical reasons: No Advance Directives: No Advance Directives Information Provided: Yes Patient : No Current occupational status: retired 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 Exam 2 Vital Signs: Vital Signs: Last Vital Signs Temp 98.0 F 07/27/23 21:50 Pulse 80 07/27/23 21:50 Resp 18 07/27/23 21:50 BP 110/67 07/27/23 21:50 Pulse Ox 98 07/27/23 21:50 O2 Del Method Room Air 07/27/23 18:46 BMI result Body Mass Index 32.5 Const: General: cooperative, comfortable and no acute distress O rientation/consciousness: patient oriented x3 Limitations: no limitations HEENT: Head: Yes normal to inspection, Yes normocephalic and Yes atraumatic Ears: hearing grossly normal bilaterally General nose exam: Normal external nose present Face and sinus: Yes normal facial exam Mouth: Normal oral and palatal mucosa present, oropharynx normal and moist mucous membranes Throat: Yes posterior oropharynx normal Eyes: General: appearance normal, both eyes and all related structures E yelids: Yes eyelids normal Conjunctivae: conjunctivae normal Sclerae: s clerae normal Pupils: Equal, round and reactive pupils present EOM: EOMs intact bilaterally Neck: Neck: Yes normal visual inspection, Yes full ROM and Yes no lymphadenopathy Lymphatic: no lymphadenopathy noted Chest: Chest palpation & inspection: normal inspection of the chest Resp: Effort & Inspection: normal respiratory effort and able to speak in complete sentences Auscultation: clear to auscultation bilaterally, no crackles, no rales, no rhonchi and no wheezes Cardio: Rate: regular rate Rhythm: regular rhythm Heart sounds: S1 normal heart sound present and S2 normal heart sound present GI: Inspection: Yes normal to inspection Skin: General skin exam: no rashes or lesions noted Trauma: no lacerations or abrasions Wounds: no wounds Neuro: General: patient oriented x3 and moves all extremities Cranial nerves: Yes Equal, round and reactive pupils present Extrem: General: Yes normal to inspection Right upper extremity: normal to inspection Left upper extremity: normal to inspection Right lower extremity: normal to inspection Left lower extremity: normal to inspection Course Course Course Narrative: This is a rapid medical exam. Deferred additional HPI, ROS, PE to primary provider. 62 yo female with history of DM, HTN, HLD here with complaints of epigastric pain, especially with eating, initially had vomiting (now resolved) x days. Saw PCP and they had concern for esophagitis. Started her on famotidine. Now having continued vomiting, discomfort in throat. Will need labs, EKG, UA, H/o cholecystectomy VSS Reevaluation(s) Reevaluation #1: Patient re-evaluated, reporting that her throat is feeling improved after receiving GI cocktail however patient in position as she is experiencing worsening abdominal pain, nausea. Will obtain CT of the abdomen to rule out any infectious process. Zofran ordered Time: 18:49 Reevaluation #2: Patient feeling much better after receiving IV Protonix. CT scan does not reveal any acute process. Discussed findings with patient. Likely viral versus esophagitis secondary to vomiting. Workup today reassuring. Patient able to eat and drink without difficulty. She has a follow-up appointment with GI next week. Advised to call on Saturday. Discharged on Protonix, Zofran, and throat lozenges/throat spray. Discussed return precautions. She understands agrees with plan. Patient stable for discharge. Time: 21:19 Medications Administered Discontinued Medications Generic Name Dose Route Start Last Admin Trade Name Freq PRN Reason Stop Dose Admin Al Hydroxide/Mg Hydroxide 30 ml 07/27/23 17:07 07/27/23 17:23 Magnesium Hydrox/Alum Hydrox 30 Ml Oral.Susp PO 07/27/23 17:08 30 ml ONCE ONE Administration Belladonna Alkaloids/Phenobarbital 10 ml 07/27/23 17:07 07/27/23 17:23 Phenobarb/Hyoscy/Atropine/Scop 10 Ml Elixir PO 07/27/23 17:08 10 ml ONCE ONE Administration Sodium Chloride 1,000 mls @ 999 mls/hr 07/27/23 17:19 07/27/23 18:43 Ns IV 07/27/23 18:19 Infused .Q1H1M ONE Infusion Iohexol 85 ml 07/27/23 19:28 07/27/23 19:29 Iohexol 350 Mg/Ml 100 Ml Infus..Btl IV 07/27/23 19:29 85 ml ONCE ONE Administration Lidocaine HCl 15 ml 07/27/23 17:07 07/27/23 17:23 Lidocaine Hcl Viscous 2 % 15 Ml Solution MUCOUS MEM 07/27/23 17:08 15 ml ONCE ONE Administration Ondansetron HCl 4 mg 07/27/23 18:48 07/27/23 19:16 Ondansetron Hcl 4 Mg/2 Ml Vial IVPUSH 07/27/23 18:49 4 mg ONCE ONE Administration Pantoprazole Sodium 40 mg 07/27/23 19:04 07/27/23 20:08 Pantoprazole Sodium 40 Mg/10 Ml Vial IVPUSH 07/27/23 19:05 40 mg ONCE ONE Administration Medical Decision Making Medical Decision Making [facility] Narrative: This is a 62 year old female, with a history of hypertension, hyperlipidemia, and diabetes, who presents emergency department with complaints of sore throat and epigastric pain. Patient states that approximately 2 weeks ago she had the stomach flu which caused her to vomit and had continued belching. She states that she was seen by her primary care physician was started on famotidine. She states that she has had worsening esophageal pain and epigastric pain. On arrival, vital signs within normal limits. She is speaking full sentences under no acute respiratory distress. Oropharynx is mildly erythematous, no tonsillar hypertrophy or exudates seen. Plan: Labs, EKG, chest x-ray, viral swabs Differential Diagnosis Differential Diagnoses: The differential diagnosis associated with the presentation includes Pharyngitis, ACS, peritonsillar abscess, esophagitis, GERD Admission/Observation Consideration of admission/observation: Escalation of care including admission/observation considered Escalation of care including admission/observation considered however given workup today not warranted at this time. Lab Data [facility] Lab Attestation statement: I reviewed the patient's lab results. No leukocytosis, stable H&H, chemistry within normal limits. Slight elevation liver transaminases. Urine with large leuks and wbc's trace bacteria. Sample appears to be contaminated she has no urinary symptoms 07/27/23 15:11 07/27/23 15:11 Labs: Lab Results 07/27/23 07/27/23 07/27/23 Range/Units 15:11 16:37 16:50 WBC 9.6 (4.8-10.8) X10*3/uL RBC 5.00 (4.20-5.50) X10*6/uL Hgb 14.7 (12.0-16.0) g/dl Hct 42.7 (37.0-47.0) % MCV 85.4 (80.0-98.0) fL MCH 29.4 (27.0-33.0) pg MCHC 34.4 (31.0-35.0) g/dl RDW 12.8 (11.0-16.0) % Plt Count 359 (160-400) X10*3/uL MPV 8.7 L (9.4-12.3) fL Immature Gran % (Auto) 0.2 (0.0-0.4) % Neut % (Auto) 66.2 (45-73) % Lymph % (Auto) 24.0 (20-40) % [place] % (Auto) 6.5 (2-11) % Eos % (Auto) 2.0 (0-4) % Baso % (Auto) 1.1 (0-2) % Lymph # (Auto) 2.3 (1.2-4.9) X10*3/uL [place] # (Auto) 0.6 (0.1-1.2) X10*3/uL Eos # (Auto) 0.2 (0.0-0.4) X10*3/uL Baso # (Auto) 0.1 (0.0-0.2) X10*3/uL Abs Immat Gran (auto) 0.02 (0.00-0.03) X10*3/uL Absolute Neuts (auto) 6.4 (2.0-8.3) x10*3/uL Absolute Nucleated RBC 0.000 (0.0-0.012) X10*3/uL Nucleated RBC % (auto) 0.0 (0.0-0.2) /100WBC Sodium 141 (135-145) mmol/L Potassium 4.5 (3.3-5.1) mmol/L Chloride 106 (96-108) mmol/L Carbon Dioxide 26 (22-29) mmol/L Anion Gap 14 (12-20) BUN 13 (9-16) mg/dL Creatinine 0.70 (0.5-1.4) mg/dL Estim Creat Clear Calc 101.5 Estimated GFR > 60 Random Glucose 100 (60-115) mg/dL Calcium 9.6 D (8.4-10.2) mg/dL Total Bilirubin 0.6 (0.0-1.0) mg/dL Direct Bilirubin 0.1 (0.0-0.5) mg/dL AST 38 H (5-31) U/L ALT 42 H (0-31) U/L Alkaline Phosphatase 114 (39-117) U/L Troponin I High Sens < 2.7 (<3.5-17.0) ng/L Total Protein 8.0 (6.5-8.0) g/dL Albumin 4.2 (3.5-5.0) g/dL Lipase 29 (8-78) U/L Urine Color Yellow Urine Appearance Cloudy Urine pH 7.0 (5.0-9.0) Ur Specific [place] 1.020 (1.005-1.025) Urine Protein Trace (Neg-Trace) mg/dL Urine Glucose (UA) Negative (Negative) mg/dL Urine Ketones Trace (Negative) mg/dL Urine Blood Negative (Negative) Urine Nitrite Negative (Negative) Ur Leukocyte Esterase Large (3+) H (Negative) Urine RBC 0-2 (0-2) /HPF Urine WBC >50 H (0-5) /HPF Ur Squamous Epith Cells 3-5 (0-2) /HPF Urine Bacteria Trace (None Seen) Hyaline Casts 0-2 (0-2) /LPF Influenza Type A (PCR) NEGATIVE (Negative) Influenza Type B (PCR) NEGATIVE (Negative) RSV RNA Qual (PCR) NEGATIVE (Negative) SARS-CoV-2 RNA (RT-PCR) NEGATIVE (Negative) S. pyogenes GrpA LILLY Negative (Negative) Independent Interpretation I performed an independent interpretation of an: EKG Interpretation: EKG normal sinus rhythm with no ST elevation or depression. Ventricular rate of 85 beats per minute, similar EKG from previous performed on January 10, 2022, QTC 480. Radiology Impression Discussion of test interpretation with radiology: I have reviewed the radiologist's reading. Radiologist Impression: CT/CT abdomen pelvis w IV con IMPRESSION: No acute findings. Diverticulosis. No evidence of diverticulitis. Small left renal stones. Small fatty lesion in the body the pancreas likely representing a benign lipoma similar to previous exams. Small bilateral ovarian cysts similar to previous exams. Fleischner guidelines were followed. Dictated By: Anju He MD Discharge Plan Discharge Clinical Impression: Gastritis, Esophagitis Patient Disposition: Home, Self-Care Instructions: Gastritis (ED), Diet for Stomach Ulcers and Gastritis (ED) Additional Instructions: Your seen in the emergency department due to throat pain and stomach pain. Your workup today was reassuring. You tested negative for flu, RSV, COVID and strep. Your CT scan revealed no new findings. You do have diverticulosis, a fatty lesion in the pancreas, and ovarian cysts. Please follow-up with your primary care physician regarding these findings. Your symptoms are likely due to vomiting and will take several days to heal. I am prescribing a multiple medications to treat your symptoms. Take pantoprazole 20 mg daily. Take 30 minutes prior to eating. Do not take with famotidine. You may use the lozenges and throat spray as needed for sore throat. You may also take ondansetron as needed for nausea. Drink plenty of fluids get plenty of rest. Stick to soft foods for the next several days. Saltwater gargles, tea with honey and warm soups can also help. Please follow-up with your primary care physician, call on Saturday. Follow-up with your GI specialist as scheduled. If any new or worsening symptoms occur including but not limited to worsening pain, inability to swallow, neck swelling, chest pain, shortness of breath, please return for re-evaluation. Prescriptions: New pantoprazole 20 mg tablet,delayed release (DR/EC) 20 mg PO DAILY 14 Days Qty: 14 0RF ondansetron 4 mg tablet,disintegrating 4 mg PO Q6-8H PRN (Reason: nausea and vomiting) Qty: 14 0RF Chloraseptic Throat [place] 1.4 % aerosol,spray 4 spray mucous membrane Q4H PRN (Reason: sore throat) Qty: 20 0RF Cepacol Sore Throat (priscilla-men) 15-3.6 mg lozenge 1 renny mucous membrane Q2-4H PRN (Reason: sore throat) Qty: 16 0RF No Action albuterol sulfate 90 mcg/actuation HFA aerosol inhaler 2 puff inhalation Q4-6H PRN (Reason: shortness of breath or wheezing) Qty: 6.7 0RF famotidine 20 mg tablet 20 mg PO DAILY atenolol 25 mg tablet 25 mg PO DAILY hydroxyzine HCl 25 mg tablet 25 mg PO TID cetirizine 10 mg tablet 10 mg PO DAILY losartan 25 mg tablet 25 mg PO DAILY venlafaxine 75 mg capsule,extended release 24hr 75 mg PO DAILY hydrochlorothiazide 25 mg tablet 25 mg PO DAILY atorvastatin 10 mg tablet 10 mg PO DAILY diclofenac sodium 1 % gel 2 g topical BID Qty: 100 2RF Rx Instructions: apply to affected hand joints montelukast 10 mg tablet 10 mg PO BEDTIME fluticasone propionate 50 mcg/actuation spray,suspension 2 spray intranasal DAILY mecobalamin (vitamin B12) 1,000 mcg lozenge 1,000 mcg PO DAILY Rx Instructions: allow to dissolve in mouth OR may chew lightly before swallowing cholecalciferol (vitamin D3) 50 mcg (2,000 unit) tablet 50 mcg PO DAILY Interventions: ED Discharge Assessment Last Done: 07/27/23 21:50 Discharge Date/Time: 07/27/23 21:52 Print Language: Monegasque
[2023-07-27 15:00] VITALS: BP 114/86; PULSE 95; RESP 18; TEMP 36.2; O2SAT 96; BMI 32.5
[2023-07-27 15:17] LABS: MANUAL DIFF FLAG NO
[2023-07-27 15:27] LABS: Basophils Absolute Auto 0.1 X10*3/uL (0.0-0.2); Basophils Percent Auto 1.1 % (0-2); Eosinophils Absolute Auto 0.2 X10*3/uL (0.0-0.4); Hematocrit 42.7 % (37.0-47.0); Hemoglobin 14.7 g/dl (12.0-16.0); Imm Gran Abs Auto 0.02 X10*3/uL (0.00-0.03); Imm Gran Pct Auto 0.2 % (0.0-0.4); Lymphocytes Absolute Auto 2.3 X10*3/uL (1.2-4.9); Mean Corpuscular HGB Conc 34.4 g/dl (31.0-35.0); Mean Corpuscular Hemoglobin 29.4 pg (27.0-33.0); Mean Corpuscular Volume 85.4 fL (80.0-98.0); Mean Platelet Volume 8.7 fL (9.4-12.3); Monocytes Absolute Auto 0.6 X10*3/uL (0.1-1.2); Monocytes Percent Auto 6.5 % (2-11); Neutrophils Absolute Auto 6.4 x10*3/uL (2.0-8.3); Neutrophils Percent Auto 66.2 % (45-73); Platelet Count 359 X10*3/uL (160-400); Red Cell Distribution Width 12.8 % (11.0-16.0); White Blood Count 9.6 X10*3/uL (4.8-10.8)
[2023-07-27 16:06] LABS: Troponin-I High Sensitivity < 2.7 ng/L (<3.5-17.0)
[2023-07-27 16:10] LABS: Alanine Aminotransferase 42 U/L (0-31); Albumin Level 4.2 g/dL (3.5-5.0); Alkaline Phosphatase 114 U/L (39-117); Anion Gap 14 (12-20); Aspartate Amino Transferase 38 U/L (5-31); Bilirubin Direct 0.1 mg/dL (0.0-0.5); Bilirubin Total 0.6 mg/dL (0.0-1.0); Blood Urea Nitrogen 13 mg/dL (9-16); Calcium 9.6 mg/dL (8.4-10.2); Carbon Dioxide 26 mmol/L (22-29); Chloride 106 mmol/L (96-108); Creatinine Clr Calc Pharmacy 101.5; Estimated Glomerular Filt Rate > 60; Glucose Random 100 mg/dL (60-115); Lipase 29 U/L (8-78); Potassium 4.5 mmol/L (3.3-5.1); Sodium 141 mmol/L (135-145)
[2023-07-27 16:47] LABS: Appearance Urine Cloudy; Color Urine Yellow; Glucose Urine UA Negative (Negative); Leukocyte Esterase Urine Large (3+) (Negative); Nitrite Urine Negative (Negative); UMIC TRIGGER UACC YES; Urine Blood Negative (Negative); Urine Ketones Trace mg/dL (Negative); Urine Protein Trace mg/dL (Neg-Trace)
[2023-07-27 16:51] LABS: Bacteria Urine Trace (None Seen); Hyaline Casts Urine 0-2 /LPF (0-2); RBC Urine 0-2 /HPF (0-2); UACC Culture Trigger YES; WBC Urine >50 /HPF (0-5)
[2023-07-27 17:11] LABS: IDNOW Serial# 58CA691E; Strep A Nucleic Acid Negative (Negative)
[2023-07-27] MEDS: Magnesium Hydrox/Alum Hydrox 30 ML ORAL.SUSP PO (17:23)
[2023-07-27] MEDS: PHENobarb/Hyoscy/Atropine/Scop 10 ML ELIXIR PO (17:23)
[2023-07-27] MEDS: Lidocaine HCl Viscous 2 % 15 ML SOLUTION MUCOUS MEM (17:23)
[2023-07-27] MEDS: 0.9 % Sodium Chloride 1,000 ML 999 ML IV (17:39)
[2023-07-27 18:46] VITALS: BP 107/68; PULSE 81; RESP 22; TEMP 36.9; O2SAT 96
[2023-07-27 18:48] LABS: Influenza A PCR NEGATIVE (Negative); Influenza B PCR NEGATIVE (Negative); Resp Syncy Virus RNA Qual PCR NEGATIVE (Negative); SARS COV2 PCR INHOUSE NEGATIVE (Negative)
--- NOTE | 2023-07-27 19:08 | PC.NURSE ---
22g inserted r hand, fluid and meds given as ordered.
[2023-07-27] MEDS: ondansetron HCL 4 MG/2 ML VIAL IVPUSH (19:16)
--- NOTE | 2023-07-27 19:19 | PC.NURSE ---
Assumed care of pt. pt alison leach, endorsing abdominal discomfort. medicated per orders, send for CT. Continuing plan to dispo after CT read..
[2023-07-27] MEDS: iohexoL 350 MG/ML 100 ML INFUS..BTL 85 ML IV (19:29)
[2023-07-27] MEDS: Pantoprazole Sodium 40 MG/10 ML VIAL IVPUSH (20:08)
[2023-07-27 21:50] VITALS: BP 110/67; PULSE 80; RESP 18; TEMP 36.7; O2SAT 98
== END 2023-07-27 21:52 | disposition home or self-care (01) ==
PROVIDERS: Nurse Practitioner Family; Physician Assistant Medical; Emergency Provider Emergency Medicine; PCP Internal Medicine
DX: K29.70 Gastritis, unspecified, without bleeding (principal); K20.90 Esophagitis, unspecified without bleeding; J02.9 Acute pharyngitis, unspecified; Z11.52 Encounter for screening for COVID-19; Z20.828 Contact with and (suspected) exposure to other viral communicable diseases; E11.9 Type 2 diabetes mellitus without complications; I10 Essential (primary) hypertension; E78.5 Hyperlipidemia, unspecified; Z79.02 Long term (current) use of antithrombotics/antiplatelets; Z79.899 Other long term (current) drug therapy
CPT/HCPCS: 0241U; 36415; 71046; 74177; 80048; 80076; 81001; 83690; 84484; 85025; 87086; 87651; 93005; 96361; 96374; 96375; 99284; 99285; C9113; J2405; Q9967

== ENCOUNTER → 2023-07-27 14:49 | Outpatient (BNV) | payer MEDICARE, MEDICAID, SELFPAY | PROVIDERS: Emergency Provider Emergency Medicine; PCP Internal Medicine; Visit Provider Internal Medicine | DX: R07.9 Chest pain, unspecified (principal); R94.31 Abnormal electrocardiogram [ECG] [EKG] | CPT/HCPCS: 93010 ==

== ENCOUNTER 2023-11-27 11:50 | Outpatient (AMB) | payer MEDICARE, MEDICAID, SELFPAY ==
--- NOTE | 2023-11-27 11:52 | AM.OFFWIN_ITS ---
Intake Vital Signs 11/27/23 11:54 Height 5 ft 8 in Weight 217 lb BMI 33.0 BP 104/72 Blood Pressure Location Rt brachial Position Sitting Pulse 116 H Pulse Source Pulse Oximeter Temp 97.9 F Temp Source Oral Pulse Oximetry (%) 96 Oxygen Delivery Method Room Air Intake Visit Reasons: EP- Positive covid, coughing - [phone] Intake Note: pt c/o Covid infection. Tested positive Saturday night, Saw PCP and started on Z- Pack Saturday morning. Symptoms started Saturday night Patient Tobacco Use Status: Never used Tobacco Allergies Sulfa (Sulfonamide Antibiotics) [SULFA (SULFONAMIDE ANTIBIOTICS)] Allergy (Unknown, Verified 11/27/23 11:52) RASH Do you need a note to return to daycare/school/sports/work: No HPI EP- Positive covid, coughing - [phone] HPI Details This note is constructed using voice recognition software. While every effort has been made to ensure accuracy, clinical documentation clerk errors may have been included. The patient is a 63 year old female who presents to the clinic today with positive coronavirus test on Saturday with symptom onset on Saturday. She notes that she was seen by her primary on Saturday and based on her symptoms she was started on azithromycin. Unfortunately she decided to test herself Saturday night and was positive for coronavirus. She has been unable to be seen by her primary care provider and is concerned as she has been coughing up thick green secretions. She is a nonsmoker, does not have a history of COPD or asthma, and no dyspnea. She reports that she was seen by her primary care provider's office by virtual visit today, and then advised that she needed a chest x-ray, however they did not order 1. They also declined to order Paxlovid because they needed to see her in person, however declined seeing her in person because she was positive for coronavirus per her report. She denies fever, chills does have widespread body aches, and generally just feels ill. 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 Review of Systems Const All systems reviewed & are unremarkable except as noted in HPI and below Physical Exam Vital Signs: Last Vital Signs Temp 97.9 F 11/27/23 11:54 Pulse 116 H 11/27/23 11:54 BP 104/72 11/27/23 11:54 Pulse Ox 96 11/27/23 11:54 Oxygen Delivery Method Room Air 11/27/23 11:54 BMI result Body Mass Index 33.0 Const General: cooperative, healthy appearing, comfortable and no acute distress Orientation/consciousness: patient oriented x3 Limitations: no limitations HEENT Head: Yes normal to inspection Ears: hearing grossly normal bilaterally, external ears normal and TM's normal bilaterally General nose exam: Normal external nose present, Normal nares present and No nasal discharge present Face and sinus: Yes normal facial exam and Yes sinuses nontender Mouth: Normal oral and palatal mucosa present and moist mucous membranes Throat: Yes tonsils normal, Yes uvula midline and Yes posterior oropharynx abnormal (Erythema) Eyes General: appearance normal, both eyes and all related structures Neck Neck: Yes normal visual inspection Resp Effort & Inspection: normal respiratory effort, able to speak in complete sentences, Actively coughing, no respiratory distress, not tachypneic, no tripod positioning and no use of accessory muscles Auscultation: clear to auscultation bilaterally Cardio Jugular venous distension: no JVD Rate: regular rate Rhythm: regular rhythm Heart sounds: S1 normal heart sound present, S2 normal heart sound present, no click, no gallops, no murmurs and no rubs Skin General skin exam: no rashes or lesions noted, elasticity normal and turgor normal Neuro General: patient oriented x3 Extrem General: Yes normal to inspection and Yes no clubbing, cyanosis or edema Assessment & Plan Assessment & Plan (1) Coronavirus infection: Code(s): B34.2 - Coronavirus infection, unspecified Plan: Quarantine measures reviewed with patient per CDC guidelines. Advised patient of supportive at-home measures for symptomatic management. Paxlovid antiviral therapy ordered for patient, reviewed side effects with medication with patient. Advised patient to follow up with worsening symptoms or failure to resolve. Given her physical examination today, we elected not to perform a chest x-ray. Plan See above for full details and plan. Medications: New nirmatrelvir-ritonavir 300 mg (150 mg x 2)-100 mg (Paxlovid) take TWO 150 mg tablets of nirmatrelvir with ONE 100 mg tablet of ritonavir twice daily for 5 days PO. 30 ea 0RF Coding Level of Care Code Est Pt Level 3 (96734) Diagnoses Coronavirus infection B34.2
[2023-11-27 11:54] VITALS: BP 104/72; PULSE 116; TEMP 36.6; O2SAT 96; BMI 33.0
== END 2023-11-27 13:10 | disposition home or self-care (01) ==
PROVIDERS: PCP Internal Medicine; Visit Provider Registered Nurse
DX: B34.2 Coronavirus infection, unspecified (principal)
CPT/HCPCS: 99213

== ENCOUNTER 2024-03-13 08:35 | Emergency (ER) | payer MEDICARE, MEDICAID, SELFPAY ==
--- NOTE | ~2024-03-13 | XR_ITS ---
EXAMINATION: XR CHEST 2 VIEW CLINICAL INFORMATION: Cough, shortness of breath COMPARISON: 07/27/2023 TECHNIQUE: PA and lateral views of the chest obtained. FINDINGS: The lungs are clear. There are no pleural effusions. The cardiomediastinal silhouette is normal. XR/XR chest 2V IMPRESSION: No acute cardiopulmonary disease. Electronically signed by: Aftab Grant MD 03/13/2024 09:24 AM [facility]
[2024-03-13 08:38] VITALS: BP 130/76; PULSE 92; RESP 20; TEMP 36.4; O2SAT 97; BMI 32.8
--- NOTE | 2024-03-13 08:40 | ECG_ITS ---
Test Reason : sob Blood Pressure : / mmHG Vent. Rate : 079 BPM Atrial Rate : 079 BPM P-R Int : 136 ms QRS Dur : 094 ms QT Int : 462 ms P-R-T Axes : 018 039 038 degrees QTc Int : 529 ms Normal sinus rhythm Nonspecific ST and T wave abnormality Abnormal ECG When compared with ECG of 27-JUL-2023 14:51, No significant change was found Referred By: Generic ED Physician Electronically Signed By:Konrad Dumont
[2024-03-13 09:12] LABS: MANUAL DIFF FLAG NO
[2024-03-13 09:14] LABS: Basophils Percent Auto 0.6 % (0-2); Eosinophils Percent Auto 0.4 % (0-4); Hematocrit 44.4 % (37.0-47.0); Hemoglobin 15.7 g/dl (12.0-16.0); Imm Gran Abs Auto 0.02 X10*3/uL (0.00-0.03); Imm Gran Pct Auto 0.3 % (0.0-0.4); Lymphocytes Absolute Auto 1.8 X10*3/uL (1.2-4.9); Lymphocytes Percent Auto 26.9 % (20-40); Mean Corpuscular HGB Conc 35.4 g/dl (31.0-35.0); Mean Corpuscular Hemoglobin 29.2 pg (27.0-33.0); Mean Corpuscular Volume 82.7 fL (80.0-98.0); Mean Platelet Volume 8.7 fL (9.4-12.3); Monocytes Absolute Auto 0.8 X10*3/uL (0.1-1.2); Neutrophils Absolute Auto 4.2 x10*3/uL (2.0-8.3); Neutrophils Percent Auto 60.8 % (45-73); Platelet Count 335 X10*3/uL (160-400); Red Blood Count 5.37 X10*6/uL (4.20-5.50); Red Cell Distribution Width 12.9 % (11.0-16.0); White Blood Count 6.8 X10*3/uL (4.8-10.8)
[2024-03-13 09:26] VITALS: BP 110/69; PULSE 84; RESP 16; TEMP 36.9; O2SAT 98
--- NOTE | 2024-03-13 09:28 | PC.NURSE ---
reports feeling general malaise and watery diarrhea. LS good air movement but crackles Lalo Bases. spking full sentences. unlabored at rest. skin pwd.
[2024-03-13 09:32] LABS: B Type Natriuretic Peptide < 10 pg/mL (<100)
[2024-03-13 09:34] LABS: Troponin-I High Sensitivity 2.9 ng/L (<3.5-17.0)
[2024-03-13 09:46] LABS: Alanine Aminotransferase 95 U/L (0-31); Albumin Level 4.3 g/dL (3.5-5.0); Alkaline Phosphatase 105 U/L (39-117); Anion Gap 16 (12-20); Aspartate Amino Transferase 98 U/L (5-31); Bilirubin Direct 0.2 mg/dL (0.0-0.5); Bilirubin Total 0.5 mg/dL (0.0-1.0); Blood Urea Nitrogen 16 mg/dL (9-16); Carbon Dioxide 25 mmol/L (22-29); Chloride 97 mmol/L (96-108); Creatinine Clr Calc Pharmacy 71.8; Estimated Glomerular Filt Rate 57; Glucose Random 169 mg/dL (60-115); Lipase 33 U/L (8-78); Potassium 2.9 mmol/L (3.3-5.1); Sodium 135 mmol/L (135-145); Total Protein 8.1 g/dL (6.5-8.0)
[2024-03-13 09:49] LABS: Influenza A PCR POSITIVE (Negative); Influenza B PCR NEGATIVE (Negative); Resp Syncy Virus RNA Qual PCR NEGATIVE (Negative); SARS COV2 PCR INHOUSE NEGATIVE (Negative)
--- NOTE | 2024-03-13 09:55 | ED_ITS ---
HPI - SOB/Dyspnea General Chief Complaint: Dyspnea Stated Complaint: Diff breathing Time Seen by Provider: 03/13/24 09:55 Source: patient Mode of arrival: ambulatory Limitations: no limitations History of Present Illness ED Provider: Dr. Thad Fountain HPI Narrative: 63-year-old female with a history of diabetes mellitus, hypertension, hyperlipidemia, depression, osteoarthritis who presents emergency department for evaluation of subjective fever, chills, sweats, nonproductive cough, myalgias, arthralgias, fatigue and watery diarrhea x7 days. She describes her diarrhea as frequent, watery stool with no blood in the stool. Patient was had a nonproductive cough. She states that she was having diffuse abdominal pain which feels like a muscle strain and she believes that she may have injured her muscles from coughing. Patient was had no appetite in his not eaten in 3 days but she has been drinking fluid. She was given in the Zithromax Z-Neel with no improvement her symptoms. She states that she was wheezing and he was then inhaler with no improvement of her symptoms. Patient did have a COVID test which was negative. Related Data Home Medications ?Medication ?Instructions ?Recorded ?Confirmed atenolol 25 mg tablet 25 mg PO DAILY 01/26/20 09/12/20 atorvastatin 10 mg tablet 10 mg PO DAILY 01/26/20 09/12/20 cetirizine 10 mg tablet 10 mg PO DAILY 01/26/20 09/12/20 hydrochlorothiazide 25 mg tablet 25 mg PO DAILY 01/26/20 09/12/20 hydroxyzine HCl 25 mg tablet 25 mg PO TID 01/26/20 09/12/20 losartan 25 mg tablet 25 mg PO DAILY 01/26/20 09/12/20 venlafaxine 75 mg capsule,extended 75 mg PO DAILY 01/26/20 09/12/20 release 24 hr cholecalciferol (vitamin D3) 50 50 mcg PO DAILY 07/03/22 mcg (2,000 unit) tablet fluticasone propionate 50 2 spray intranasal DAILY 07/03/22 mcg/actuation nasal spray,suspension mecobalamin (vitamin B12) 1,000 1,000 mcg PO DAILY 07/03/22 mcg lozenges montelukast 10 mg tablet 10 mg PO BEDTIME 07/03/22 azithromycin 250 mg tablet 250 mg PO DIRECTED 11/27/23 celecoxib 200 mg capsule 200 mg PO DAILY 11/27/23 diclofenac sodium 1 % topical gel 2 g topical BID PRN 11/27/23 hydrochlorothiazide 12.5 mg tablet 12.5 mg PO DAILY 11/27/23 omeprazole 20 mg capsule,delayed 20 mg PO DAILY 11/27/23 release semaglutide 3 mg tablet (Rybelsus) 3 mg PO QAM 11/27/23 Previous Rx's ?Medication ?Instructions ?Recorded albuterol sulfate 90 mcg/actuation 2 puff inhalation Q4-6H PRN 01/10/22 aerosol inhaler shortness of breath or wheezing #6.7 grams benzocaine 15 mg-menthol 3.6 mg 1 renny mucous membrane Q2-4H PRN 07/27/23 lozenges (Cepacol Sore Throat sore throat #16 ea (benzocaine-menthol)) ondansetron 4 mg disintegrating 4 mg PO Q6-8H PRN nausea and 07/27/23 tablet vomiting #14 tabs phenol 1.4 % mucosal aerosol spray 4 spray mucous membrane Q4H PRN 07/27/23 (Chloraseptic Throat [place]) sore throat #20 mL nirmatrelvir 300 mg (150 mg See Rx Instructions PO .COMPLEX 11/27/23 x2)-ritonavir 100 mg tablet,dose #30 ea pack (Paxlovid) morphine 15 mg immediate release 15 mg PO Q8H PRN pain #10 tabs 03/13/24 tablet Allergies Allergy/AdvReac Type Severity Reaction Status Date / Time Sulfa (Sulfonamide Allergy Unknown RASH Verified 03/13/24 08:39 Antibiotics) [SULFA (SULFONAMIDE ANTIBIOTICS)] Review of Systems 2 Review of Systems: Yes all other systems are reviewed and are negative [facility] Past Medical History [facility] Narrative: Social history: Patient denies tobacco, alcohol and drug use. Surgical History S/P removal of right ovary Hx of cholecystectomy Family History Family History Mother Heart problem Diabetes Alzheimer disease Dementia Father Diabetes Kidney disease Liver disease Social History Social History Household Members: None Alcohol intake: current Alcohol intake frequency: holidays/special occasions only Patient Tobacco Use Status: Never used Tobacco Smoked in Last 30 Days: No Use of substances other than those prescribed or required for medical reasons: No Advance Directives: No Advance Directives Information Provided: Yes Patient : No Current occupational status: retired 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 Exam 2 Vital Signs: Vital Signs: Last Vital Signs Temp 97.8 F 03/13/24 13:42 Pulse 77 03/13/24 13:42 Resp 16 03/13/24 13:42 BP 103/64 03/13/24 13:42 Pulse Ox 95 03/13/24 13:42 O2 Del Method Room Air 03/13/24 13:42 BMI result Body Mass Index 32.8 Vital signs were normal Exam: General: Awake, alert in no distress Head: Normocephalic, atraumatic EENT: PERRL, Lids normal, sclera normal, conjunctiva normal, nose normal , ears normal, throat without erythema or exudates Neck: Supple, no adenopathy Lung: breath sounds symmetric, diffuse rhonchi, wheeze at end of expiration, no rales Chest: symmetric movement, nontender Heart: regular rate and rhythm, normal S1, S2 no murmurs or rubs Abdomen: soft, mild to moderate diffuse abdominal tenderness, nondistended, normal bowel sounds Back: no vertebral tenderness, no CVAT Extremities: no deformities, moves all extremities symmetrically Neuro: Awake, alert, oriented, normal speech, cranial nerves intact, moves all extremities symmetrically Psych: Pleasant, cooperative Medications Administered Discontinued Medications Generic Name Dose Route Start Last Admin Trade Name Harpreetq PRN Reason Stop Dose Admin Sodium Chloride 1,000 mls @ 999 mls/hr 03/13/24 10:50 03/13/24 13:45 Ns IV 03/13/24 11:50 Infused .Q1H1M STA Infusion Potassium Chloride 10 meq in 100 mls @ 100 mls/hr 03/13/24 11:00 03/13/24 13:35 Potassium Chloride/H20 IV 03/13/24 12:59 100 mls/hr Q1H GREG Administration Ketorolac Tromethamine 15 mg 03/13/24 10:50 03/13/24 11:30 Ketorolac Tromethamine 15 Mg/Ml Vial IVPUSH 03/13/24 10:51 15 mg ONCE STA Administration Morphine Sulfate 4 mg 03/13/24 13:33 03/13/24 13:40 Morphine Sulfate 4 Mg/Ml Cartridge IVPUSH 03/13/24 13:34 4 mg ONCE STA Administration Protocol Potassium Bicarbonate 25 meq 03/13/24 10:50 03/13/24 11:38 Potassium Bicarbonate/Cit Ac 25 Meq Tablet.Eff PO 03/13/24 10:51 25 meq ONCE ONE Administration Medical Decision Making Medical Decision Making [facility] Narrative: 63-year-old female with a history of diabetes mellitus, hypertension, hyperlipidemia, depression, osteoarthritis who presents emergency department for evaluation of subjective fever, chills, sweats, nonproductive cough, myalgias, arthralgias, fatigue and frequent, watery diarrhea x7 days. Patient was had very poor appetite and has had little food to eat over the last 3 days but she has been drinking fluids. Vital signs were normal physical examination did reveal diffuse abdominal tenderness and wheezing with rhonchi on her lung exam Differential diagnosis: ?Includes but is not limited to pneumonia, bronchitis, viral syndrome, RSV, influenza, COVID, electrolyte abnormalities, anemia, malnutrition, volume depletion/dehydration Course: 10:51 My independent interpretation patient's laboratory evaluation is as follows: Potassium was low 2.9. Glucose was elevated 169. AST and ALT were elevated 98 and 95. Troponin was detectable but not elevated at 2.9. BNP was below detectable limits. COVID-19 and RSV were negative. Influenza a was positive.Chest x-ray did not reveal any evidence for pneumonia at this time.Twelve lead EKG did reveal prolonged QRS complex but this is most likely secondary to her low potassium. Patient was treated with normal saline IV x1 L, potassium chloride 10 mEq/100 mL x2, potassium bicarbonate 25 mg orally and Toradol 15 mg IV Patient's symptoms are consistent with acute influenza a and I did discuss this with the patient. 13:34 The patient got minimal relief of her pain with the above treatment. She was continuing to have 8/10 abdominal pain therefore she was given morphine 4 mg IV. 15:28 Patient was abdominal pain did improve after the IV morphine. However she states she did not take her omeprazole today and she was now having her acid reflux symptoms therefore she was treated with Maalox 30 cc orally and omeprazole 20 mg orally. Patient was advised to take Tylenol for her pain and she was also prescribed morphine 15 mg every 6 hours as needed for pain not relieved by Tylenol. She was given printed and verbal instructions and discharged home. Admission/Observation Consideration of admission/observation: Escalation of care including admission/observation considered (Yes) Lab Data MDM Lab Attestation statement: I reviewed the patient's lab results. 03/13/24 09:08 03/13/24 09:08 Labs: Lab Results 03/13/24 Range/Units 09:08 WBC 6.8 (4.8-10.8) X10*3/uL RBC 5.37 (4.20-5.50) X10*6/uL Hgb 15.7 (12.0-16.0) g/dl Hct 44.4 (37.0-47.0) % MCV 82.7 (80.0-98.0) fL MCH 29.2 (27.0-33.0) pg MCHC 35.4 H (31.0-35.0) g/dl RDW 12.9 (11.0-16.0) % Plt Count 335 (160-400) X10*3/uL MPV 8.7 L (9.4-12.3) fL Immature Gran % (Auto) 0.3 (0.0-0.4) % Neut % (Auto) 60.8 (45-73) % Lymph % (Auto) 26.9 (20-40) % Hunt % (Auto) 11.0 (2-11) % Eos % (Auto) 0.4 (0-4) % Baso % (Auto) 0.6 (0-2) % Lymph # (Auto) 1.8 (1.2-4.9) X10*3/uL Hunt # (Auto) 0.8 (0.1-1.2) X10*3/uL Eos # (Auto) 0.0 (0.0-0.4) X10*3/uL Baso # (Auto) 0.0 (0.0-0.2) X10*3/uL Abs Immat Gran (auto) 0.02 (0.00-0.03) X10*3/uL Absolute Neuts (auto) 4.2 (2.0-8.3) x10*3/uL Absolute Nucleated RBC 0.000 (0.0-0.012) X10*3/uL Nucleated RBC % (auto) 0.0 (0.0-0.2) /100WBC Sodium 135 (135-145) mmol/L Potassium 2.9 L* D (3.3-5.1) mmol/L Chloride 97 (96-108) mmol/L Carbon Dioxide 25 (22-29) mmol/L Anion Gap 16 (12-20) BUN 16 (9-16) mg/dL Creatinine 0.98 (0.5-1.4) mg/dL Estim Creat Clear Calc 71.8 Estimated GFR 57 Random Glucose 169 H (60-115) mg/dL Calcium 10.0 (8.4-10.2) mg/dL Magnesium 1.9 (1.6-2.6) mg/dL Total Bilirubin 0.5 (0.0-1.0) mg/dL Direct Bilirubin 0.2 (0.0-0.5) mg/dL AST 98 H (5-31) U/L ALT 95 H (0-31) U/L Alkaline Phosphatase 105 (39-117) U/L Troponin I High Sens 2.9 (<3.5-17.0) ng/L B-Natriuretic Peptide < 10 (<100) pg/mL Total Protein 8.1 H (6.5-8.0) g/dL Albumin 4.3 (3.5-5.0) g/dL Lipase 33 (8-78) U/L Influenza Type A (PCR) POSITIVE A (Negative) Influenza Type B (PCR) NEGATIVE (Negative) RSV RNA Qual (PCR) NEGATIVE (Negative) SARS-CoV-2 RNA (RT-PCR) NEGATIVE (Negative) Independent Interpretation I performed an independent interpretation of an: Plain X-Ray Interpretation: My independent interpretation patient's two view chest x-ray is as follows: No acute disease My independent interpretation patient's 12 EKG is as follows: QTC of 592 milliseconds, no ST segment elevation, no ST segment depression, no PACs, no PVCs, nonspecific T-wave abnormalities Radiology Impression Discussion of test interpretation with radiology: I have reviewed the radiologist's reading. Radiologist Impression: XR chest 2V IMPRESSION: No acute cardiopulmonary disease. Electronically signed by: Aftab Grant MD 03/13/2024 09:24 AM EST Discharge Plan Discharge Clinical Impression: Influenzal acute upper respiratory infection Abdominal pain Qualifiers: Abdominal location: generalized Qualified Code(s): R10.84 - Generalized abdominal pain Diarrhea Qualifiers: Diarrhea type: unspecified type Qualified Code(s): R19.7 - Diarrhea, unspecified Patient Disposition: Home, Self-Care Instructions: Influenza (ED) Additional Instructions: Your COVID-19 and RSV tests were negative Your influenza a test was positive and this explains your symptoms. For pneumonia which is reassuring and your oxygen level was normal as well Potassium was low and you were given IV and oral potassium here in the emergency department. Take ibuprofen 200 mg pills, 2 pills every 6 hours as needed for pain. Take Tylenol (acetaminophen) 2 pills every 6 hours as needed for pain. For pain not relieved by ibuprofen or Tylenol take morphine 15 mg pills, 1 pill every 6 hours as needed for pain. This medication will make you sleepy, do not drive or work while taking this medication. Morphine is a narcotic medication and can be addicting. If you are concerned about addiction you can ask the pharmacist for less pills or do not get this prescription filled. For the next 24 hours, stay on a SHUBHAM diet (bananas, rice, applesauce, tea and toast). Follow-up with your doctor in 2 days. Please return to the emergency department if your symptoms get worse or if you develop any symptoms that are concerning to you. Prescriptions: New morphine 15 mg tablet 15 mg PO Q8H PRN (Reason: pain) Qty: 10 0RF Rx Instructions: Partial Fill upon patient request. No Action albuterol sulfate 90 mcg/actuation HFA aerosol inhaler 2 puff inhalation Q4-6H PRN (Reason: shortness of breath or wheezing) Qty: 6.7 0RF ondansetron 4 mg tablet,disintegrating 4 mg PO Q6-8H PRN (Reason: nausea and vomiting) Qty: 14 0RF Chloraseptic Throat [place] 1.4 % aerosol,spray 4 spray mucous membrane Q4H PRN (Reason: sore throat) Qty: 20 0RF Cepacol Sore Throat (priscilla-men) 15-3.6 mg lozenge 1 renny mucous membrane Q2-4H PRN (Reason: sore throat) Qty: 16 0RF atenolol 25 mg tablet 25 mg PO DAILY hydroxyzine HCl 25 mg tablet 25 mg PO TID cetirizine 10 mg tablet 10 mg PO DAILY losartan 25 mg tablet 25 mg PO DAILY venlafaxine 75 mg capsule,extended release 24hr 75 mg PO DAILY hydrochlorothiazide 25 mg tablet 25 mg PO DAILY atorvastatin 10 mg tablet 10 mg PO DAILY omeprazole 20 mg capsule,delayed release(DR/EC) 20 mg PO DAILY azithromycin 250 mg tablet 250 mg PO DIRECTED diclofenac sodium 1 % gel 2 g topical BID PRN Rx Instructions: apply to affected hand joints celecoxib 200 mg capsule 200 mg PO DAILY hydrochlorothiazide 12.5 mg tablet 12.5 mg PO DAILY Rybelsus 3 mg tablet 3 mg PO QAM Paxlovid 300 mg (150 mg x 2)-100 mg tablets,dose pack See Rx Instructions PO .COMPLEX Qty: 30 0RF Rx Instructions: take TWO 150 mg tablets of nirmatrelvir with ONE 100 mg tablet of ritonavir twice daily for 5 days PO. montelukast 10 mg tablet 10 mg PO BEDTIME fluticasone propionate 50 mcg/actuation spray,suspension 2 spray intranasal DAILY mecobalamin (vitamin B12) 1,000 mcg lozenge 1,000 mcg PO DAILY Rx Instructions: allow to dissolve in mouth OR may chew lightly before swallowing cholecalciferol (vitamin D3) 50 mcg (2,000 unit) tablet 50 mcg PO DAILY Print Language: Burkinan
[2024-03-13] MEDS: Ketorolac Tromethamine 15 MG/ML VIAL IVPUSH (11:30)
[2024-03-13 11:32] LABS: Magnesium 1.9 mg/dL (1.6-2.6)
[2024-03-13] MEDS: Potassium Bicarbonate/Cit AC 25 MEQ TABLET.EFF PO (11:38)
[2024-03-13] MEDS: 0.9 % Sodium Chloride 1,000 ML 999 ML IV (11:38)
[2024-03-13] MEDS: Potassium Chloride/H20 10 MEQ/100 ML PIGGYBACK 100 MEQ IV ×2 (11:38→13:35)
[2024-03-13 12:19] VITALS: BP 110/73; PULSE 81; RESP 12; TEMP 36.9; O2SAT 96
[2024-03-13] MEDS: Morphine Sulfate 4 MG/ML CARTRIDGE IVPUSH (13:40)
[2024-03-13 13:42] VITALS: BP 103/64; PULSE 77; RESP 16; TEMP 36.6; O2SAT 95
[2024-03-13] MEDS: Magnesium Hydrox/Alum Hydrox 30 ML ORAL.SUSP PO (15:46)
[2024-03-13] MEDS: Omeprazole 20 MG CAPSULE.DR PO (15:46)
[2024-03-13 15:54] VITALS: BP 112/66; PULSE 82; RESP 18; TEMP 36.6; O2SAT 94
[2024-03-13 16:03] VITALS: BP 112/66; PULSE 82; RESP 16; TEMP 36.6; O2SAT 94
--- OUTSIDE RECORDS SUMMARY | 2024-03-18 05:47 | XMS_ITS | Continuity of Care Document ---
Author Organization [facility] Address [address] [place] [address] Phone Care Team Providers Care Case Manager Name Role Phone Doug ORTA, RVT, [...] Scan-extrem Veins; Uni/ CT & [place] S ep Inj Scleros Solut; Mx Veins 1- CT [...] Mins- CT & [place] [facility], [address] [place] [address] Dr [address] [address], [id number], [place] tel:[phone] [facility] Varicose veins of bilateral lower extremities with other complications Pruritus, unspecifiedEs sential (primary) hypertension Oct-2 4 Doug ORTA, RVT, RPVI Adam. [address] [address], [place], [place], [id number] , [place]. tel:[phone] Referring Provider: Carol Rhoades MD B., [address] [place] [address], [address]. tel:[phone] [facility], [address] [place] [address] Dr [address]Greg [place], [id number], [place] tel:[phone] [facility] Chronic venous hypertension (idiopathic) with other complications of bilateral lower extremity Oct- 4 Doug ORTA RVT, RPVI Robert. [address] [place] [address], [place], [place], [id number] , [place]. tel:[phone] Referring Provider: Carol Tracy, [address] [place] [address], [address]. tel:[phone] [facility], [address] [place] [address] Dr [address]Suite [place], [id number], [place] tel:[phone] [facility] - [place] Encounter for follow-up examination after completed treatment for conditions other than malignant neVaricose veins of right lower extremity with pain Sep- 4 Doug ORTA RVT, RPVI Robert. [address] [place] [address], [place], [place], [id number] , [place]. tel:[phone] Referring Provider: Carol Tracy, [address] [place] [address], [address]. tel:[phone] [facility], [address] [place] [address] Dr [address] Greg [place], [id number], [place] tel:[phone] [facility] [place] Varicose veins of right lower extremity with other complications Sep- 4 Doug ORTA RVT, RPVI Robert. [address] [place] [address], [place], [place], [id number] , [place]. tel:[phone] Referring Provider: Carol Tracy, [address] [place] [address], [address]. tel:[phone] [facility], [address] [place] [address] Dr [address]ov[address]Greg [place], [id number], [place] tel:[phone] [facility] [place] Encounter for follow-up examination after completed treatment for conditions other than malignant neoplasmPain in right leg Sep- 4 Doug ORTA RVT, RPVI Robert. [address] [place] [address] [address] [address], [facility], [place], [id number] , [place]. tel:[phone] Referring Provider: Carol Tracy, [address] [place] [address], [address]. tel:[phone] [facility], [address] [place] [address] Dr [address]Greg [place], [id number], [place] tel:[phone] CVR - [facility] Varicose veins of right lower extremity with other complications Sep-1 4 Doug ORTA RVT, MOISÉS Medina. [address] [place] [address], [facility], [place], [id number] , [place]. [phone] Referring Provider: Carol Tracy, [address] [place] [address], [address]. tel:[phone] [facility], [address] [place] [address] [address]Greg [place], [id number], [place] tel:[phone] CVR - [facility] Encounter for follow-up examination after completed treatment for conditions other than malignant neoplasmVaric ose veins of left lower extremity with pain Sep-1 4 Doug ORTA RVT, MOISÉS Medina. [address] [place] [address], [facility], [place], [id number] , [place]. tel:[phone] Referring Provider: Carol Tracy, [address] [place] [address], [address]. tel:[phone] [facility], [address] [place] [address] Dr [address]Greg [place], [id number], [place] tel:[phone] [facility] - [place] [facility] [place] No Information Sep-1 0- 4 Doug ORTA RVT, MOISÉS Medina. [address] [place] [address], Suite [facility], [facility], [place], [id number] , [place]. [phone] [facility], [address] [place] [address] Dr [address]Greg [place], [id number], [place] tel:[phone] [facility] - [place] Varicose veins of left lower extremity with other complications Dec-0 4 Doug ORTA RVT, MOISÉS Medina. [address] [place] [address], [place], [place], [id number] , [place]. [phone] Referring Provider: Carol Tracy, [address] [place] [address], [address]. tel:[phone] [facility], [address] [place] [address] Dr [address]Greg [place], [id number], [place] tel:[phone] [facility] [place] Encounter for follow-up examination after completed treatment for conditions other than malignant nePain in left leg Dec-0 4 Doug ORTA RVT, MOISÉS Medina. [address] [place] [address], [place], [place], [id number] , [place]. [phone] Referring Provider: Carol Tracy, [address] [place] [address], [address]. tel:[phone] [facility], [address] [place] [address] Dr [address] [place], [id number], [place] tel:[phone] [facility] [place] Varicose veins of left lower extremity with other complications 4 Doug ORTA RVT, MOISÉS Medina. [address] [place] [address], [place], [place], [id number] , [place]. tel:[phone] Referring Provider: Carol Tracy, [address] [place] [address], [address]. tel:[phone] Offic/outpt E&m Estab 5 Min Trial- Telemedicine [place] & [place] [facility], [address] [place] [address] Dr [address]Greg [place], [id number], [place] tel:[phone] [facility] - [place] Varicose veins of bilateral lower extremities with painRestless legs syndromePruri tus, unspecifiedEs sential (primary) hypertension Nov- 4 Doug ORTA RVT, MOISÉS Medina. [address] [facility], [address] [address], [place], [place], [id number] , [place]. tel:[phone] Referring Provider: Carol Tracy, [address] [place] [address], [address]. tel:[phone] Office/Oupt E&M New Pt 45 Mins- CT & [place] [facility], [address] [place] [address] [facility] [address] [address] [place], [id number], [place] tel:[phone] [facility] [place] Varicose veins of bilateral lower extremities with other complications Pain in right lower legPain in left lower legPain in right legRestless legs syndromeEssen tial (primary) hypertensionP ruritus, unspecifiedPa in in left legCramp and spasm 4 Doug ORTA RVT, MOISÉS Medina. [address] [place] [address], [address] [address], [place], [place], [id number] , [place]. tel:[phone] Referring Provider: Carol Tracy, [address] [place] [address], [address]. tel:[phone] [facility], [address] [place] [address] [address]Greg [place], [id number], [place] tel:[phone] [facility] [place] Chronic venous hypertension (idiopathic) with other complications of bilateral lower extremity 4 Doug ORTA RVT, MOISÉS Medina. [address] [place] [address], [place], [place], [id number] , [place]. tel:[phone] Referring Provider: Carol Tracy, [address] [place] [address], [address]. tel:[phone] Family History Family Member Type Diagnosis Age At Onset No Information Payers Payer name Insurance type Covered democrat ID Authoriza tion(s) Medicare ELMER MEADOWS [id number] Medical Assistance ELMER YIAFN [id number] Social History Type Description Quantity Date Captured [...] Information Instructions Date Instruction Additional Infor mation Giving Encouragement to exercise Related to Body mass index (BMI) 32.0-32.9, adult Diet education Related to Body mass index (BMI) 32.0-32.9, adult Lifestyle education Related to B homer mass index (BMI) 32.0-32.9, adult Compression stocking usage as conservative measure Related to Varicose veins of bilateral lower extremities with other complications Patient education booklet given Related to Varicose veins of bilateral lower extremities with other complications Pre and post instruc tions reviewed and provided Related to Varicose veins of bilateral lower extremities with pain Patient education booklet given Related to Varicose veins of bilateral lower extremities with pain Diet education Related to Body mass index (BMI) 32.0-32.9, adult Giving Encouragement to exercise Related to Body mass index (BMI) 32.0-32.9, adult Lifestyle education Related to B homer mass index (BMI) 32.0-32.9, adult Patient education booklet given Related to Varicose veins of bilateral lower extremities with other complications Pre and post instruc tions reviewed and provided Related to Varicose veins of bilateral lower extremities with other complications Assessments Type Assessment Date No Information Patient Care Teams Name Effective Dates (start - stop) Status Members No Information
== END 2024-03-13 16:04 | disposition home or self-care (01) ==
PROVIDERS: Emergency Provider Emergency Medicine Emergency Medical Services; PCP Internal Medicine
DX: J10.1 Influenza due to other identified influenza virus with other respiratory manifestations (principal); R05.9 Cough, unspecified; Z03.818 Encounter for observation for suspected exposure to other biological agents ruled out; R06.02 Shortness of breath; E11.9 Type 2 diabetes mellitus without complications; I10 Essential (primary) hypertension; E78.5 Hyperlipidemia, unspecified; Z79.02 Long term (current) use of antithrombotics/antiplatelets; Z79.899 Other long term (current) drug therapy
CPT/HCPCS: 0241U; 36415; 71046; 80053; 82248; 83690; 83735; 83880; 84484; 85025; 93005; 96361; 96374; 96375; 99285; J1885; J2270; J3480

== ENCOUNTER → 2024-03-13 08:40 | Outpatient (BNV) | payer MEDICARE, MEDICAID, SELFPAY | PROVIDERS: Emergency Provider Emergency Medicine Emergency Medical Services; PCP Internal Medicine; Visit Provider Internal Medicine Cardiovascular Disease | DX: R06.02 Shortness of breath (principal) | CPT/HCPCS: 93010 ==

== ENCOUNTER 2024-06-25 08:06 | Outpatient (AMB) | payer MEDICARE, MEDICAID, SELFPAY ==
--- NOTE | 2024-06-25 08:03 | MHC.OFFWIV ---
Intake Vital Signs 06/25/24 08:05 Weight 227 lb BP 126/80 Blood Pressure Location Rt brachial Position Sitting Pulse 66 Pulse Source Pulse Oximeter Temp 98.2 F Temp Source Oral Pulse Oximetry (%) 98 Oxygen Delivery Method Room Air Intake Visit Reasons: EP ? sinus infection, sore throat Intake Note: Patient here for sinus congestion, sinus headache and post nasal drip that has been present for about 5 days, Patient Tobacco Use Status: Never used Tobacco Allergies Sulfa (Sulfonamide Antibiotics) [SULFA (SULFONAMIDE ANTIBIOTICS)] Allergy (Unknown, Verified 06/25/24 08:06) RASH Do you need a note to return to daycare/school/sports/work: No HPI HPI Comments History of Present Illness Details History The patient is a 63-year-old female presenting with upper respiratory symptoms consistent with a viral infection combined with allergic rhinitis. Over the past five days, she has noted significant postnasal drip, and severe throat discomfort, particularly affecting her ability to swallow water. She reports a three-day history of headaches and minor night-time cough, which is sufficiently disruptive to require elevation during sleep. Despite current use of cetirizine and Flonase, there has been insufficient symptomatic relief. Allergies are managed with hydroxyzine, although its effect on throat itchiness is minimal. 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 Physical Exam General: Cooperative, healthy appearing, comfortable and no acute distress Orientation/consciousness: Patient oriented x3 Limitations: No limitations Head: Normal to inspection Ears: Hearing grossly normal bilaterally, external ears normal and TM's normal bilaterally, some fluid present Nose: Normal external nose present, Normal nares present and postnasal drip present Face and sinus: Normal facial exam and Yes sinuses nontender t Mouth: Normal oral and palatal mucosa present and moist mucous membranes Throat: Yes tonsils normal, Yes uvula midline. Posterior oropharynx erythema Eyes: Appearance normal, both eyes and all related structures Neck: Normal visual inspection Respiratory: Clear to auscultation bilaterally. Normal respiratory effort, able to speak in complete sentences, no respiratory distress, not tachypneic, no tripod positioning and no use of accessory muscles Cardiovascular: Regular rate and rhythm. 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 Review of Systems Const All systems reviewed & are unremarkable except as noted in HPI and below Physical Exam Vital Signs: Last Vital Signs Temp 98.2 F 06/25/24 08:05 Pulse 66 06/25/24 08:05 BP 126/80 06/25/24 08:05 Pulse Ox 98 06/25/24 08:05 Oxygen Delivery Method Room Air 06/25/24 08:05 Results AMB Rapid Strep AMB Rapid Strep Negative Last Edit by GILLIAN Leija on 06/25/24 08:24 Assessment & Plan Assessment & Plan (1) Sinusitis: Code(s): J32.9 - Chronic sinusitis, unspecified Qualifiers: Sinusitis location: unspecified location Chronicity: acute Recurrence: non-recurrent Qualified Code(s): J01.90 - Acute sinusitis, unspecified Plan: Plan Based on today's evaluation, there is a suspected diagnosis of an upper respiratory viral infection alongside allergic rhinitis. Initial rapid strep testing was negative, with pending results for influenza, COVID-19, and RSV to further assess the viral etiology. Benzonatate was advised to assist with nocturnal cough management to improve her sleep quality. Proper administration techniques for Flonase were discussed to maximize its efficacy, especially regarding drainage from fluid detected in the ear. Continued use of cetirizine with potential cycling of allergy medications every few months was suggested to mitigate resistant allergic symptoms, while using hydroxyzine at night for itching. Pending results from laboratory tests will guide further treatment adjustments if needed, ensuring that symptom management aligns with pending diagnostic outcomes. Patient was informed and verbally consented to the use of an ambient scribe for clinic note documentation during this visit Orders: Orders SARS-CoV2/FLU/RSV Today R09.89 - Other specified symptoms and signs involving the circulatory and respiratory systems Medications: New benzonatate 200 mg PO BEDTIME PRN 10 caps 0RF cough Coding Level of Care Code New Pt Level 3 (31113) Diagnoses Acute non-recurrent sinusitis, unspecified location J01.90 Sinusitis location: unspecified location Chronicity: acute Recurrence: non-recurrent
[2024-06-25 08:05] VITALS: BP 126/80; PULSE 66; TEMP 36.8; O2SAT 98
--- OUTSIDE RECORDS SUMMARY | 2024-06-25 08:11 | XMS_ITS ---
Author Organization [address] [facility] Address [address] [place] [address] Phone Care Team Providers Care Supervisor [employer] Name Role Phone Carol Rhoades MD Primary Care Provider [phone] High Risk Care Management Status:Identified (Enrolling) Start date:05/26/2024 Enrollment reason:Identified as high-risk Case Team Name Relationship Phone Diana Lockhart wire stitcher operator(Responsible S taff) Continued Care and Services Coordination
--- OUTSIDE RECORDS SUMMARY | 2024-06-25 08:11 | XMS_ITS | Clinical Summary ---
Author Organization 175 [facility] Address [address] [place] [address] Phone Care Team Providers Care Gas Load Dispatcher Name Role Phone Carol Rhoades MD Primary Care Provider [phone] Allergies Active Allergy Reactions Criticality Noted Date Comments Amoxicillin-Pot Clavulanate Diarrhea Low 10/14/19 09 abd pains Clarithromycin Diarrhea Low 11/21/2010 Codeine-Guaifenesin Low 05/20/2008 Feels wired on the cough syrup Diphenhydramine Anxiety Low 05/20/2008 on the benadryl Causes hyperactivity and insomnia Hydrocodone Itching Low 04/21/2013 Lisinopril Swelling Medium 04/21/2013 Loperamide Rash High 03/06/2016 Sulfamethoxazole-Trimethopr im Rash Medium 05/20/2008 Medications fluticasone propionate (FLONASE) 50 mcg/actuation nasal spray Administer 2 sprays into each nostril 1 (one) time each day. 3 Active lancets (OneTouch Delica Plus Lancet) 33 gauge 1 each by Not Applicable route 1 (one) time each day. 3 Active venlafaxine XR (EFFEXOR-XR) 75 mg 24 hr capsule Take 1 capsule (75 mg total) by mouth 1 (one) time each day. 90 each 1 4 Active omeprazole (PriLOSEC) [address] capsule Take 1 capsule (20 mg total) by mouth 1 (one) time each day. Do not crush or chew. 90 each 1 4 Active montelukast (SINGULAIR) 10 mg tablet Take 1 tablet (10 mg total) by mouth at bedtime. 90 each 1 4 Active losartan (COZAAR) 25 mg tablet Take 1 tablet (25 mg total) by mouth at bedtime. 90 each 1 4 Active hydroCHLOROthia zide 12.5 mg tablet Take 1 tablet (12.5 mg total) by mouth 1 (one) time each day. 90 each 1 4 Active atorvastatin (LIPITOR) 10 mg tablet Take 1 tablet (10 mg total) by mouth at bedtime. 90 each 1 4 Active atenoloL (TENORMIN) 25 mg tablet Take 1 tablet (25 mg total) by mouth 1 (one) time each day. 90 each 1 4 Active albuterol HFA (PROAIR HFA ; PROVENTIL HFA ; VENTOLIN HFA) 90 mcg/actuation inhaler Inhale 2 puffs by mouth every 4 (four) hours if needed for wheezing or shortness of breath. 8.5 g 1 4 Active potassium chloride (KLOR-CON M20) 20 mEq CR tablet Take 1 tablet (20 mEq total) by mouth 1 (one) time each day. Tablet may be swallowed whole (do not crush/chew/suck on) OR broken in half and each half swallowed separately OR dissolved (whole tablet) in ~4 ounces of water (allow ~2 minutes to dissolve, stir well and administer immediately). 90 each 1 4 Active senna-docusate (PERICOLACE) 8.6-50 mg per tablet Take 2 tablets by mouth at bedtime. May stop if no longer using narcotic medication; Or loose stools 30 tablet 4 Active Active Problems Problem Noted Date Diagnosed Date Diabetic gastroparesis 05/26/2024 Overview (05/26/2024): 09/05/23: Abnormal gastric emptying time with significant retained isotope activity of 45% at 222 minutes into the study Asthma 03/26/2024 Complex tear of medial menis cus of right knee as current injury 03/17/2024 Primary osteoarthritis of right knee 03/17/2024 Acute lateral meniscus tear of right knee 2023 Complex tear of lateral meni scus of left knee as current injury 03/10/2024 Gastroparesis 10/15/2023 Osteoarthritis of both knees 10/15/2023 Fatty liver 01/30/2022 Benign essential tremor 04/12/2020 Overview (01/23/2024): Dr. Nye (04/07/2020) Depression 03/17/2020 Epigastric pain 09/05/2018 Hypercholesterolemia 04/30/2018 Microalbuminuria 01/11/2018 Transaminitis 12/31/2017 Type II diabetes mellitus with renal manifestati ons 12/31/2017 Obesity (BMI 30.0-34.9) 01/14/2017 Eczema 01/12/2013 Tubular adenoma 07/06/2011 Overview (01/23/2024): CN 04/19 - due 5 years Anxiety 06/06/2011 Low back pain 08/10/2009 GERD (gastroesophageal reflux disease) 9 Hypertension 03/23/2008 Allergic rhinitis 04/30/2005 Ovarian cyst, right 04/30/2005 Temporomandibular joint disorder 04/30/2005 Overview (01/23/2024): IMO update Resolved Problems Problem Noted Date Diagnosed Date Resolved Date Acute lateral meniscus tear of right knee 03/17/2024 03/20/2024 Encounters Date Type Department Care Team Description 06/10/2024 5:30 PM EST Treatment Outpatient Rehabilitation [address] [phone] Marcos Henriquez, PT Complex tear of medial meniscus of right knee as current injury, subsequent encounter (Primary Dx); Acute lateral meniscus tear of right knee, initial encounter; Primary osteoarthritis of right knee 06/10/2024 9:00 AM EST Office Visit Orthopedic Surgery - [place] [address] [place] [phone] Ron Blackwood MD Primary osteoarthritis of right knee (Primary Dx) 05/27/2024 7:30 AM EST Treatment Outpatient Rehabilitation [address] [phone] Rosaura Robles, MEDICAL TECHNICAL WRITER Complex tear of medial meniscus of right knee as current injury, subsequent encounter (Primary Dx) 05/20/2024 7:30 AM EST Treatment Outpatient Rehabilitation - [address] [phone] Rosaura Robles, MEDICAL TECHNICAL WRITER Complex tear of medial meniscus of right knee as current injury, subsequent encounter (Primary Dx) 05/13/2024 7:30 AM EST Treatment Outpatient Rehabilitation - [address] [phone] Rosaura Robles, MEDICAL TECHNICAL WRITER Complex tear of medial meniscus of right knee as current injury, subsequent encounter (Primary Dx) 05/05/2024 7:30 AM EST Treatment Outpatient [address] [phone] Marcos Henriquez, PT Complex tear of medial meniscus of right knee as current injury, subsequent encounter (Primary Dx); Acute lateral meniscus tear of right knee, initial encounter; Primary osteoarthritis of right knee 04/28/2024 [facility] - [address] [phone] Ron Blackwood MD mri 04/24/2024 7:30 AM EST Treatment Outpatient [address] [phone] Marcos Henriquez, PT Complex tear of medial meniscus of right knee as current injury, subsequent encounter (Primary Dx); Acute lateral meniscus tear of right knee, initial encounter; Primary osteoarthritis of right knee 04/17/2024 7:30 AM EST Treatment Outpatient Rehabilitation - [address] [phone] Marcos Henriquez, PT Complex tear of medial meniscus of right knee as current injury, subsequent encounter (Primary Dx); Acute lateral meniscus tear of right knee, initial encounter; Primary osteoarthritis of right knee 04/10/2024 10:30 AM EST Treatment Outpatient Rehabilitation - [address] [phone] Marcos Henriquez, PT Complex tear of medial meniscus of right knee as current injury, subsequent encounter (Primary Dx); Acute lateral meniscus tear of right knee, initial encounter; Primary osteoarthritis of right knee 04/10/2024 9:00 AM EST Office Visit Orthopedic Surgery - [place] [address] [facility] 160 [place] [phone] Eneida Iqbal PA Post-operative state (Primary Dx); S/P arthroscopic partial medial meniscectomy; S/P arthroscopic partial lateral meniscectomy; Chronic pain of right knee 04/10/2024 Telephone Adult Medicine [address] [phone] Carol Rhoades MD Forms/questionnaires 04/10/2024 Telephone Adult Medicine [address] [phone] Carol Rhoades MD Forms/questionnaires 04/03/2024 8:00 AM EST Evaluation Outpatient Rehabilitation - [address] [phone] Marcos Henriquez, PT Complex tear of medial meniscus of right knee as current injury, subsequent encounter; Acute lateral meniscus tear of right knee, initial encounter; Primary osteoarthritis of right knee 04/03/2024 Plan of Care Documentation Outpatient Rehabilitation - [address] [phone] from Last 3 Months Immunizations Name Administration Dates Next Due H1N1 Inj Preservative Free 05/02/2009 Influenza Quadravalent, MDCK , 0.5ml, preservative free (Flucelvax) 6mo and older 12/23/2022,01/20/2022,03/27/2021,01/06 Influenza trivalent, 0.5mL, preservative free (Fluarix; FluLaval; Fluzone) ages 6mo and older (Afluria) 3 years and older 01/14/2024,01/18/2022,12/31/2019,12/25,12/12/2011,12/27/2010,01/20/2010 ,01/14/2009,02/06/2005 Influenza, Unspecified 12/23/2016,2015,01/24/2015,01/18 Pfizer SARS-CoV-2 COVID-19, mRNA, LNP-S, preservative free 06/30/2020 Pneumococcal polysaccharide 23 valent (Pneumovax 23) 2yo and older 01/01/2005 Td Tetanus diptheria (Tdvax) 7yo and older 12/01/2018 Tdap Tetanus diptheria acell ular pertussis (Boostrix; Adacel) 7yo and older 01/17/2009 Zoster recombinant (Shingrix ) 19yo and older 01/22/2020,12/06/2019 Surgical History Surgery Date Site/Laterality Comments OVARIAN CYST REMOVAL : right COLONOSCOPY 04/23/11 : adenomas and tics; repeat in 5 yrs COLONOSCOPY 10/04/2016 : tics and melanosis coli; repeat in 5 yrs. CHOLECYSTECTOMY SCREENING MAMMOGRAM 03/08/2012 Bilateral DILATION AND CURETTAGE OF UTERUS ENDOMETRIAL ABLATION KNEE ARTHROSCOPY 03/26/2024 Right Right knee arthroscopy with meniscectomy including debridement/shaving articular cartilage, and synovectomy. Medical History Medical History Date Comments Allergic rhinitis, cause unspecified Temporomandibular joint disorders, unspecified Other and unspecified ovarian cyst Essential hypertension, benign 03/23/2008 GERD (gastroesophageal reflux disease) 9 Low back pain 08/10/2009 Tubular adenoma 07/06/2011 Eczema 01/12/2013 Morbid obesity (CMS/HCC) 08/27/2016 DJD (degenerative joint disease) 03/06/2017 Hypercholesterolemia 04/30/2018 Fatty liver 01/30/2022 History of COVID-19 11/26/2023 Complex tear of lateral meniscus of left knee as current injury 03/10/2024 Family History Medical History Relation Name Comments Other: Other Brother Covid-19 Diabetes Father cancer ?ty pe, ESRD on dialysis, arthritis Heart attack Maternal Grandmother 49 Diabetes Mother GA, stroke, dem entia, arthritis Arthritis Sister suicide Relation Name Status Comments Brother Father Maternal Grandmother Mother Sister Social History Tobacco Use Types Packs/Day Years Used Date Smoking Tobacco: Former Cigarettes 1 2.4 0 11/24/1975 - 04/08/1978 Smokeless Tobacco: Never Tobacco Cessation:Counseling Given: Not Answered Alcohol Use Standard Drinks/Week Comments Yes 0 (1 standard drink = 0.6 oz pur e alcohol) Housing Instability Answer Date Recorde d Are you worried that in the next 2 months you may not have stable housing? No 03/17/2024 Food Access & Nutrition Answer Date Rec orded Do you have access to a vari ety of food including fruits and vegetables? Patient declined 03/17/2024 Health Literacy Answer Date Recorded How often do you need to hav e someone help you when you read instructions, pamphlets, or other written material from your doctor or pharmacy? Often 03/17/2024 Caregiver: How often do you need to have someone help you when you read instructions, pamphlets, or other written material from your doctor or pharmacy? Not on file 03/17/2024 Financial Risk Answer Date Recorded How hard is it for you to pa y for the very basics like food, housing, medical care, and air conditioning / heating? Somewhat hard 03/17/2024 Transportation Answer Date Recorded Has the lack of transportati on kept you from meetings, work, or from getting things needed for daily living? No Has the lack of transportati on kept you from medical appointments or from getting medications? No 03/17/2024 Social Isolation Answer Date Recorded How often do you feel lonely or isolated from those around you? Sometimes 03/17/2024 Food Risk Answer Date Recorded Within the past 12 months we worried whether our food would run out before we got money to buy more. Patient declined 024 Within the past 12 months th e food we bought just didn't last and we didn't have money to get more. Patient declined 03/08 Dependent Care Answer Date Recorded Do you need help finding or paying for care for your loved ones. For example, child care attendant or elderly care for an older adult? Patient declined 03/17/2024 Education Answer Date Recorded Do you think completing more education or training, like finishing a GED, going to college, or learning a trade, would be helpful for you? No 03/17/2024 Employment and Income Answer Date Recor ded During the last four weeks, have you been actively looking for work? Patient declined 03/17/2024 Living Situation Answer Date Recorded What is your living situation? 1 05/18/2023 Interpersonal Safety Answer Date Record ed Physical Abuse 03/26/2024 Verbal Abuse 03/26/2024 Comments Unknown Sex and Gender Information Value Date Recorded Sex Assigned at Female 03/26/2024 10:03 AM EST Legal Sex Female 7:01 PM EST Gender Identity Female 03/26/2024 10:03 AM EST Sexual Orientation Straight 02/21/2024 5: 26 PM EST Obstetrics History Last Filed Vital Signs Vital Sign Reading Time Taken Comments Blood Pressure 123/72 03/26/2024 3:25 PM EST Pulse 83 03/26/2024 3:25 PM EST Temperature 36.8 ??C (98.2 ??F) 03/26/2024 3:25 PM ES T Respiratory Rate 16 03/26/2024 3:25 PM EST Oxygen Saturation 95% 03/26/2024 3:25 PM EST Inhaled Oxygen Concentration - - Weight 99.8 kg (220 lb) 06/10/2024 8:56 AM EST Height 172.7 cm (5' 7.99 ) 06/10/2024 8:56 AM ES T Body Mass Index 33.46 06/10/2024 8:56 AM EST Plan of Treatment Upcoming Encounters Date Type Department Care Team (Late st Contact Info) Description 07/02/2024 8:30 AM EDT Office Visit Orthopedic Surgery - [address] [phone] Soledad Alexandre NP [address] [phone] 07/09/2024 8:30 AM EDT Office Visit Adult Medicine [address] [phone] Josefina Howe PA [address] [place] [phone] Health Maintenance Due Date Last Done Comments Breast Cancer Screening 1960 Pneumococcal Vaccine: 50+ Years (2 of 2 - PCV) 01/01/2006 01/01/2005 Pneumococcal Vaccine: Pediatrics (0 to 5 Years) and At-Risk Patients (6 to 64 Years) (2 of 2 - PCV) 01/01/2006 01/01/2005 RSV Immunization Patients 60+ Years Old (1 - Risk 60-74 years 1-dose series) 2020 HIV Screening 03/17/2022 Medicare Annual Wellness Visit 03/17/2022 COVID-19 Vaccine ( season) 2023 03/21/2021, 07/22/2020, 06/30/2020 Diabetes: Annual Urine Albumin-Creatinine Ratio (uACR) 06/04/2024 06/04/2023 Diabetes: Annual Retina Eye Exam 08/27/2024 08/28/2023 Diabetes: Blood Sugar Control Test (HGBA1C) 09/07/2024 03/09/2024, 10/08/2023, 10/08/2023 Diabetes: Annual Foot Exam 10/14/2024 10/15/2023 Depression Screening 03/17/2025 03/17/2024, 01/07/20 24 Social Influencers of Health Screening 03/17/2025 03/17/2024 Diabetes: Annual GFR (Glomerular Filtration Rate) 03/23/2025 03/23/2024, 03/17/2024, 10/08/2023, Additional history exists Hypertension/CHF/CAD Annual BMP Blood Test 03/23/2025 03/23/2024, 03/17/2024, 10/08/2023, Additional history exists Cervical Cancer Screening: Pap Smear 05/07/2026 05/07/2023 Colorectal Cancer Screening: Colonoscopy 05/08/2027 05/08/2022 Cholesterol Screening (Lipid Panel) 10/07/2028 10/08/2023, 10/08/2023 DTaP,Tdap,and Td Vaccines (3 - Td or Tdap) 12/01/2028 12/01/2018, 01/17/2009 Hepatitis C Screening Completed 01/11/2018 Zoster Vaccines Completed 01/22/2020, 12/06/2019 Influenza Vaccine Completed 01/14/2024, , 01/20/2022, Additional history exists HIB Vaccines Aged Out No longer eligi ble based on patient's age to complete this topic HPV Vaccines Aged Out No longer eligi ble based on patient's age to complete this topic Hepatitis A Vaccines Aged Out No long er eligible based on patient's age to complete this topic Hepatitis B Vaccines Aged Out No long er eligible based on patient's age to complete this topic IPV Vaccines Aged Out No longer eligi ble based on patient's age to complete this topic MMR Vaccines Aged Out No longer eligi ble based on patient's age to complete this topic Meningococcal ACWY Vaccine Aged Out N o longer eligible based on patient's age to complete this topic Meningococcal B Vacine Aged Out No lo nger eligible based on patient's age to complete this topic RSV Immunization Patients Under 20 months Aged Out No longer eligible based on patient's age to complete this topic Varicella Vaccines Aged Out No longer eligible based on patient's age to complete this topic Procedures Procedure Name Priority Date/Time Associated Diagnosis Comments XR KNEE 1-2 VIEWS RIGHT Routine 04/10/2024 9:10 AM EST Post-operative state BASIC METABOLIC PANEL Routine 03/23/2024 7:47 AM EST Hypokalemia HEMOGLOBIN A1C Routine 03/09/2024 8:22 AM EST Type 2 diabetes mellitus with diabetic microalbuminuria, without long-term current use of insulin ([facility]) DEPRESSION SCREENING Routine 01/07/2024 DIABETES FOOT EXAM Routine 10/15/2023 LIPID PANEL Routine 10/08/2023 DIABETES EYE EXAM Routine 08/28/2023 URINE ALBUMIN CREATININE RATIO Routine 06/04/2023 PAP SMEAR Routine 05/07/2023 COLONOSCOPY Routine 05/08/2022 HEPATITIS C SCREENING Routine 01/11/2018 from Last 3 Months or Most Recently Relevant to Health Maintenance Results * XR Knee 1-2 Views Right (04/10/2024 9:10 AM EST) Anatomical Region Laterality Modality Lower Extremities, Knee Right Computed Radiography Narrative 04/10/2024 10:04 AM EST Date of Visit: 04/10/2024 Reason for visit: ?? Right knee pain Views: Lateral and AP weightbearing right knee Comparison: 01/14/24 ?? Findings: moderate Joint space of the narrowing of the medial compartments unchanged from previous films Mild Joint space narrowing ??of the lateral compartments. No fractures. ??No bony lesions identified. Impression: No acute osseous pathology noted Right ??knee Mild - moderate degenerative changes as noted above. Read by: Eneida Iqbal PA-C us Eneida OLMOS IMG XR PROCEDURES Final Resul t * (ABNORMAL) Basic metabolic panel (03/23/2024 7:47 AM EST) Sodium 142 133 - 145 mmol/L LAB CHEMISTRY METHOD 03/23/2024 10:20 AM [facility] Potassium 3.6 3.5 - 5.5 mmol/L LAB CHEMISTRY METHOD 03/23/2024 10:20 AM [facility] Chloride 101 96 - 110 mmol/L LAB CHEMISTRY METHOD 03/23/2024 10:20 AM [facility] CO2 32 21 - 32 mmol/L LAB CHEMISTRY METHOD 03/23/2024 10:20 AM [facility] Anion Gap 9 3 - 11 LAB CHEMISTRY METHOD 03/23/2024 10:20 AM [facility] Glucose 143(H) 70 - 100 mg/dL LAB CHEMISTRY METHOD 03/23/2024 10:20 AM [facility] BUN 14 5 - 25 mg/dL LAB CHEMISTRY METHOD 03/23/2024 10:20 AM [facility] Creatinine 0.72 0.50 - 1.10 mg/dL LAB CHEMISTRY METHOD 03/23/2024 10:20 AM [facility] eGFR 94 >=60 mL/min/1. 73m2 LAB CHEMISTRY METHOD 03/23/2024 10:20 AM EST [facility] Comment:Calculation based on the??Chronic Kidney Disease Epidemiology Collaboration (CKD-EPI) equation refit??without adjustment for race. BUN/Creatinine Ratio 19.4 LAB CHEMISTRY METHOD 03/23/2024 10:20 AM [facility] Calcium 9.8 8.5 - 10.5 mg/dL LAB CHEMISTRY METHOD 03/23/2024 10:20 AM [facility] Blood Venous blood specimen / Unknown Venipuncture / Unknown 03/23/2024 7:47 AM EST 03/23/2024 7:47 AM EST Carol Rhoades MD LAB BLOOD ORDERABLES Final Resul t Performing Organization Address [facility] Co de Phone Number [facility] [address] [place] [address], [place] [phone] * Hemoglobin A1c (03/09/2024 8:22 AM EST) Hemoglobin A1C 6.2 <6.5 % LAB CHEMISTRY METHOD 03/09/2024 11:01 AM [facility] Mean Bld Glu Estim. 131 mg/dL LAB CHEMISTRY METHOD 03/09/2024 11:01 AM [facility] Blood Venous blood specimen / Unknown Venipuncture / Unknown 03/09/2024 8:22 AM EST 03/09/2024 8:22 AM EST us Carol Rhoades MD LAB BLOOD ORDERABLES Final Resul t Performing Organization Address City/[facility]/ZIP Co de Phone Number [facility] [address] [place] [address], [place] [phone] * Depression Screening (01/07/2024) Depression Screening abstracted Nestor Zarate MD HEALTH MAINTENANCE Final Result * Diabetes Foot Exam (10/15/2023) [facility] Diabetes: Annual Foot Exam abstracted Result [facility] Provider HEALTH MAINTENANCE Final Result * Lipid panel (10/08/2023) [facility] LDL/HDL Ratio 3 0 - 4 Triglycerides 132 0 - 150 mg/dL Cholesterol 176 0 - 200 mg/dL HDL 53 >=40 mg/dL LDL Cholesterol 97 0 - 100 mg/dL Blood Venous blood specimen / Unknown Result [facility] Provider LAB BLOOD ORDERABLES Zaynab l Result * Diabetes Eye Exam (08/28/2023) [facility] Diabetes: Annual Retina Eye Exam abstracted Result [facility] Provider HEALTH MAINTENANCE Final Result * Urine Albumin Creatinine Ratio (06/04/2023) [facility] Urine Albumin Creatinine Ratio abstracted Result [facility] Provider HEALTH MAINTENANCE Final Result * Pap Smear (05/07/2023) [facility] Pap smear no interpretation , abstracted Result [facility] Provider HEALTH MAINTENANCE Final Result * Colonoscopy (05/08/2022) [facility] Colonoscopy no interpretation , abstracted Anatomical Region Laterality Modality Other Result [facility] Provider HEALTH MAINTENANCE Final Result * Hepatitis C Screening (01/11/2018) [facility] Hepatitis C Screening abstracted Result [facility] Provider HEALTH MAINTENANCE Final Result from Last 3 Months or Most Recently Relevant to Health Maintenance Insurance [place] MEDICARE Advance Directives * Full Code - Default (Latest Code Status on File) Date Activated Date Inactivated Comments 03/26/2024 10:14 AM 03/26/2024 7:32 PM This is o rder is used when code status has not been discussed with the patient, or code status is otherwise unknown/unconfirmed To update the patient's code status, place a code status order. Do not modify or discontinue any currently active code status orders. Care Teams Gas Load Dispatcher Relationship Specialty Start Date End Date Carol Rhoades MD [address] [place] [address] PCP - General 08/11/1996
--- OUTSIDE RECORDS SUMMARY | 2024-06-25 08:11 | XMS_ITS | Encounter Summary ---
Author Organization [facility] Address [address] [place] [address] Care Team Providers Care Milieu Therapist Name Role Phone Carol Rhoades MD Primary Care Provider [phone] Reason for Visit * Reason Comments Follow-up Encounter Details Date Type Department Care Team (Latest Contact Info) Description 06/10/2024 9:00 AM EST Office Visit Orthopedic Surgery - [place] 160 175 [facility] 160 [place] [phone] Ron Blackwood MD 175 [facility] 160 [place] [address] Primary osteoarthritis of right knee (Primary Dx) Social History Tobacco Use Types Packs/Day Years Used Date Smoking Tobacco: Former Cigarettes 1 2.4 0 11/24/1975 - 04/08/1978 Smokeless Tobacco: Never Alcohol Use Standard Drinks/Week Comments Yes 0 [...] your loved ones. For example, child care lead teacher or elderly care for an older adult? [...] Orientation Straight 02/21/2024 5: 26 PM EST documented as of this encounter Last Filed Vital Signs Vital Sign Reading Time Taken Comments Blood Pressure - - Pulse - - Temperature - - Respiratory Rate - - Oxygen Saturation - - Inhaled Oxygen Concentration - - Weight 99.8 kg (220 lb) 06/10/2024 8:56 AM EST Height 172.7 cm (5' 7.99 ) 06/10/2024 8:56 AM ES T Body Mass Index 33.46 06/10/2024 8:56 AM EST documented in this encounter Progress Notes * Ron Blackwood MD - 06/10/2024 9:00 AM EST Reason For Visit: Follow-up of the Right Knee Patient: Margi Marques : 1960 VISIT DATE: 06/10/2024 HPI: Margi Marques is a 63 y.o. year old female who presents follow up on her right knee. She is 3 months status postarthroscopy. ROS: GENERAL: negative MUSCULOSKELETAL: See HPI The remainder of the review of systems is noncontributory Allergies: Allergies Allergen Reactions Loperamide Rash Lisinopril Swelling Sulfamethoxazole-Trimethoprim Rash Amoxicillin-Pot Clavulanate Diarrhea abd pains Clarithromycin Diarrhea Codeine-Guaifenesin Feels wired on the cough syrup Diphenhydramine Anxiety on the benadryl Causes hyperactivity and insomnia Hydrocodone Itching Past Medical History: has a past medical history of Allergic rhinitis, cause unspecified, Complex tear of lateral meniscus of left knee as current injury (03/10/2024), DJD (degenerative joint disease) (03/06/2017), Eczema (01/12/2013), Essential hypertension, benign (03/23/2008), Fatty liver (2021), GERD (gastroesophageal reflux disease) (01/17/2009), History of COVID-19 (11/26/2023), Hypercholesterolemia (04/30/2018), Low back pain (08/10/2009), Morbid obesity (CMS/HCC) (08/27/2016), Other and unspecified ovarian cyst, Temporomandibular joint disorders, unspecified, and Tubular adenoma(07/06/2011). She has no past medical history of Malignant hyperthermia or Sleep apnea. Social History: Social History Tobacco Use Smoking status: Former Current packs/day: 0.00 Average packs/day: 1 pack/day for 2.4 years (2.4 ttl pk-yrs) Types: Cigarettes Start date: 11/24/1975 Quit date: 04/08/1978 Years since quittin.2 Smokeless tobacco: Never Substance Use Topics Alcohol use: Yes Past Surgeries: Past Surgical History: Procedure Laterality Date CHOLECYSTECTOMY COLONOSCOPY 1/16/12 : adenomas and tics; repeat in 5 yrs COLONOSCOPY 10/04/2016 : tics and melanosis coli; repeat in 5 yrs. DILATION AND CURETTAGE OF UTERUS ENDOMETRIAL ABLATION KNEE ARTHROSCOPY Right 03/26/2024 Right knee arthroscopy with meniscectomy including debridement/shaving articular cartilage, and synovectomy. OVARIAN CYST REMOVAL : right SCREENING MAMMOGRAM Bilateral 03/08/2012 Medications: No outpatient medications have been marked as taking for the 06/10/24 encounter (Office Visit) with Ron Blackwood MD. Physical Exam: Vitals: 06/10/24 0856 Weight: 99.8 kg (220 lb) Height: 1.727 m (67.99 ) APPEARANCE: Alert, oriented, no acute distress RIGHTKNEE KNEE EXAM: RIGHT Inspection: Well Healed arthroscopic surgical scars. Palpation: Tenderness around the patellofemoral and medial compartments. Crepitus of the patellofemoral compartment. ROM: Active near full range of motion Passive near full range of motion Neurovascular: No gross deficits distally Strength: 4/5 quadriceps. 5/5 hamstrings. Special Tests: No gross ligamentous instability. Imaging: XR Knee 1-2 Views Right Date of Visit: 04/10/2024 Reason for visit: Right knee pain Views: Lateral and AP weightbearing right knee Comparison: 01/14/24 Findings: moderate Joint space of the narrowing of the medial compartments unchanged from previous films Mild Joint space narrowing of the lateral compartments. No fractures. No bony lesions identified. Impression: No acute osseous pathology noted Right knee Mild - moderate degenerative changes as noted above. Read by: Eneida Iqbal PA-C Assessment and Plan: 1. Primary osteoarthritis of right knee Intraoperative findings at her knee arthroscopy demonstrated severe DJD in her knee. She has not obtained a significant amount of relief from her arthroscopy. She is willing to try viscosupplementation. We will submit for approval for viscosupplementation and have her come in for injections. She isalso ready to discuss the possibility of a total knee replacement in the future. We will set up a meeting with our total knee team. Physical Therapy: Perform HEP Ron Blackwood MD documented in this encounter Plan of Treatment Upcoming Encounters Date Type Department Care Team (Late st Contact Info) Description 07/02/2024 8:30 AM EDT Office Visit Orthopedic Surgery - [place] [address] [address] Soledad Alexandre NP [address] [address] 07/09/2024 8:30 AM EDT Office Visit Adult Medicine [facility] [address] [place] [address] Josefina Howe PA [address] [place] [address] documented as of this encounter Visit Diagnoses Diagnosis Primary osteoarthritis of right knee- Primary documented in this encounter Additional Health Concerns Assessment Noted Time PHQ-9 Depression Total Score: 0 03/17/20 24 6:13 PM EST documented as of this encounter Care Teams Milieu Therapist Relationship Specialty Start Date End Date Carol Rhoades MD [address] [place] [address] PCP - General 08/11/1996 documented as of this encounter
--- OUTSIDE RECORDS SUMMARY | 2024-06-25 08:11 | XMS_ITS | Encounter Summary ---
Author Organization [facility] Address [address] [place] [address] Care Team Providers Care Resource Manager Forester Name Role Phone Carol Rhoades MD Primary Care Provider [phone] Reason for Visit * Consultation (Routine) - Authorized Specialty Diagnoses / Procedures Referred By Contac t Referred To Contact Physical Therapy Diagnoses Complex tear of medial meniscus of right knee as current injury, subsequent encounter Acute lateral meniscus tear of right knee, initial encounter Primary osteoarthritis of right knee Ron Blackwood MD [address] [place] [address] Phone: tel: fax: Referral ID Status Reason Start Date Expiration Date Visits Requested Visits Authorized [id number] Authorized Specialty Services Required 03/17/2025 13 13 Encounter Details Date Type Department Care Team (Late st Contact Info) Description 05/27/2024 7:30 AM EST Treatment Outpatient Rehabilitation [address] [address] Rosaura Robles PTA Complex tear of medial meniscus of right knee as current injury, subsequent encounter (Primary Dx) Social History Tobacco Use Types [...] for your loved ones. For example, child and adolescent therapist or elderly care for an older adult? [...] PM EST documented as of this encounter Progress Notes * Melchor Mukherjee PTA - 05/27/2024 7:30 AM EST [facility] - Outpatient PHYSICAL THERAPY DAILY TREATMENT NOTE - OP Date: 05/27/2024 Visit Number: 8 Patient Name: Margi Marques : 1960 Age: 63 y.o. Gender: female Diagnosis: ICD-10-CM ICD-9-CM 1. Complex tear of medial meniscus of right knee as current injury, subsequent encounter S83.231D V58.89 Date of Onset/Surgery: 03/26/2024 Referring Provider: Ron Blackwood MD Insurance: Payor: MEDICARE / Plan: MEDICARE PART A & B / Product Type: Medicare / Patient Identified by: Melchor Mukherjee PTA Language: Speaks and understands Icelandic as preferred language with no liaison planner required Medications: Current Outpatient Medications on File Prior to Visit Medication Sig Dispense Refill albuterol HFA (PROAIR HFA ; PROVENTIL HFA ; VENTOLIN HFA) 90 mcg/actuation inhaler Inhale 2 puffs by mouth every 4 (four) hours if needed for wheezing or shortness of breath. 8.5 g 1 atenoloL (TENORMIN) 25 mg tablet Take 1 tablet (25 mg total) by mouth 1 (one) time each day. 90 each 1 atorvastatin (LIPITOR) 10 mg tablet Take 1 tablet (10 mg total) by mouth at bedtime. 90 each 1 fluticasone propionate (FLONASE) 50 mcg/actuation nasal spray Administer 2 sprays into each nostril1 (one) time each day. hydroCHLOROthiazide 12.5 mg tablet Take 1 tablet (12.5 mg total) by mouth 1 (one) time each day. 90each 1 lancets (OneTouch Delica Plus Lancet) 33 gauge 1 each by Not Applicable route 1 (one) time each day. losartan (COZAAR) 25 mg tablet Take 1 tablet (25 mg total) by mouth at bedtime. 90 each 1 montelukast (SINGULAIR) 10 mg tablet Take 1 tablet (10 mg total) by mouth at bedtime. 90 each 1 omeprazole (PriLOSEC) [address] capsule Take 1 capsule (20 mg total) by mouth 1 (one) time each day.Do not crush or chew. 90 each 1 potassium chloride (KLOR-CON M20) 20 mEq CR tablet Take 1 tablet (20 mEq total) by mouth 1 (one) time each day. Tablet may be swallowed whole (do not crush/chew/suck on) OR broken in half and each half swallowed separately OR dissolved (whole tablet) in ~4 ounces of water (allow ~2 minutes to dissolve, stir well and administer immediately). 90 each 1 senna-docusate (PERICOLACE) 8.6-50 mg per tablet Take 2 tablets by mouth at bedtime. May stop if nolonger using narcotic medication; Or loose stools 30 tablet 0 venlafaxine XR (EFFEXOR-XR) 75 mg 24 hr capsule Take 1 capsule (75 mg total) by mouth 1 (one) time each day. 90 each 1 No current facility-administered medications on file prior to visit. Allergies: is allergic to loperamide, lisinopril, sulfamethoxazole-trimethoprim, amoxicillin-pot clavulanate, clarithromycin, codeine-guaifenesin, diphenhydramine, and hydrocodone. Precautions: follow protocol Fall risk: No Patient/Caregiver Goals: SUBJECTIVE Subjective Report: My knee felt a lot better after the massage last visit. Chart Reviewed: Yes Pain 2/10, soreness No pain OBJECTIVE Nustep x5mins HS stretch in sitting leg on stool, 30 sec x3 Step up fwd on 6 in 2 x 10 Shuttle squats 4 cords 3 x 10, SL 3 cords 3x10 Lateral walk at counter with GTB 3 laps LAQ with 2# 2x10 Bridges 2x10 HELD...H/L clams with GTB 2x10 Manual...STM to R HS in prone ASSESSMENT/Response to Treatment 30 Good Significant decrease in HS tenderness, mild soreness on medial aspect. PLAN No change in plan of care; Participants: Patient Total Treatment Time: 30 Interventions for today's session provided by physical therapy student, Melchor Mukherjee PTA. My clinical instructor, Rosaura Robles PTA, was present and participatory during the delivery of care and directed all aspects of care and decision making during this session. CI has reviewed the Epic therapy documentation for 05/27/2024, and by way of cosignature, concurs with all documentation and attests to its accuracy, and to that of all associated charges. Documentation completed by Melchor Mukherjee PTA Cosigned by Rosaura Robles PTA at 05/27/2024 9:37 AM EST documented in this encounter Plan of Treatment Upcoming Encounters Date Type Department Care Team (Late st Contact Info) Description 07/02/2024 8:30 AM EDT Office Visit Orthopedic Surgery - [address] [address] Soledad Alexandre NP [address] [address] 07/09/2024 8:30 AM EDT Office Visit Adult Medicine [facility] [address] [place] [address] Josefina Howe PA [address] [place] [address] documented as of this encounter Visit Diagnoses Diagnosis Complex tear of medial meniscus of right knee as current injury, subsequent encounter- Primary documented in this encounter Additional Health Concerns Assessment Noted Time PHQ-9 Depression Total Score: 0 03/17/20 24 6:13 PM EST documented as of this encounter Care Teams Resource Manager Forester Relationship Specialty Start Date End Date Carol Rhoades MD [address] [place] [address] PCP - General 08/11/1996 documented as of this encounter
--- OUTSIDE RECORDS SUMMARY | 2024-06-25 08:11 | XMS_ITS | Encounter Summary ---
Author Organization [facility] Address [address] [place] [address] Care Team Providers Care Slasher Tender Helper Name Role Phone Carol Rhoades MD Primary Care Provider [phone] Reason for Visit * Consultation (Routine) - Authorized Specialty Diagnoses / Procedures Referred By Contteodoro t Referred To Contact Physical Therapy Diagnoses Complex tear of medial meniscus of right knee as current injury, subsequent encounter Acute lateral meniscus tear of right knee, initial encounter Primary osteoarthritis of right knee Ron Blackwood MD [address] [address] Phone: tel: fax: Referral ID Status Reason Start Date Expiration Date Visits Requested Visits Authorized [id number] Authorized Specialty Services Required 4 03/17/2025 13 13 Encounter Details Date Type Department Care Team (Latest Contact Info) Description 06/10/2024 5:30 PM EST Treatment Outpatient Rehabilitation - [address] [address] Marcos Henriquez, PT 175 [place] [address] Complex tear of medial meniscus of right knee as current injury, subsequent encounter (Primary Dx); Acute lateral meniscus tear of right knee, initial encounter; Primary osteoarthritis of right knee Social History Tobacco Use Types Packs/Day Years [...] for your loved ones. For example, child welfare assistant or elderly care for an older adult? [...] as of this encounter Progress Notes * Marcos Henriquez, PT - 06/10/2024 5:30 PM EST Images from the original note were not included. [facility] - Outpatient PHYSICAL THERAPY Discharge Date: 06/10/2024 Visit Number: 9 Patient Name: Margi Marques : 1960 Age: 63 y.o. Gender: female Diagnosis: ICD-10-CM ICD-9-CM 1. Complex tear of medial meniscus of right knee as current injury, subsequent encounter S83.231D V58.89 2. Acute lateral meniscus tear of right knee, initial encounter S83.281A 836.1 3. Primary osteoarthritis of right knee M17.11 715.16 Date of Onset/Surgery: 03/26/2024 Pt comes 1 wk post partial menisectomy arthroscopically. Pt reports has been using a walker till yesterday as she was unsure if she could progress. Pt reports original injury having been from twisting knee. Pt has f/u with Dr Blackwood's office on 04/10/24 for stitch remover. 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 Referring Provider: Ron Blackwood MD Insurance: Payor: MEDICARE / Plan: MEDICARE PART A & B / Product Type: Medicare / Patient identified by: Marcos Henriquez, PT Chart Reviewed: Yes has a past medical history of Allergic rhinitis, cause unspecified, Complex tear of lateral meniscus of left knee as current injury (03/10/2024), DJD (degenerative joint disease) (03/06/2017), Eczema(01/12/2013), Essential hypertension, benign (03/23/2008), Fatty liver (01/30/2022), GERD (gastroeso phageal reflux disease) (01/17/2009), History of COVID-19 (11/26/2023), Hypercholesterolemia (04/30/2018), Low back pain (08/10/2009), Morbid obesity ([facility]/HCC) (08/27/2016), Other and unspecified ovarian cyst, Temporomandibular joint disorders, unspecified, and Tubular adenoma (07/06/2011). has a past surgical history that includes Ovarian cyst removal; Colonoscopy (04/23/11); Colonoscopy (10/04/2016); Cholecystectomy; screening mammogram (Bilateral, 03/08/2012); Dilation and curettage of uterus; Endometrial ablation; and Knee Arthroscopy (Right, 03/26/2024). is allergic to loperamide, lisinopril, sulfamethoxazole-trimethoprim, amoxicillin-pot clavulanate, clarithromycin, codeine-guaifenesin, diphenhydramine, and hydrocodone. Precautions: Per protocol SUBJECTIVE History of Present Illness/Subjective Report: Pt reports doing well. Not much pain. Is the patient at Risk for Falls: No Pain: /10 OBJECTIVE Px=Pain LE MMT Right Left Ankle PF 3+5 5/5 Ankle DF 5/5 5/5 Ankle Inversion 5/5 5/5 Ankle Eversion 5/5 5/5 Knee extension 5/5 5/5 Knee flexion 5/5 5/5 Hip ER 5/5 5/5 Hip IR 4+/5 4+/5 Hip flexion 4+/5 4+/5 Hip abduction 4+/5 4+/5 Hip adduction 4/5 4/5 Hip extension 4-/5 4-/5 Ability to standard bridge yes Ability to unilateral bridge Y Y TREATMENT INTERVENTIONS NuStep x 5 mins HS stretch in sitting leg on stool, 30 sec x 3 Step up fwd on 6 in 2 x 10 Shuttle squats 4 cords 3 x 10, SL 3 cords 3 x 10 Lateral walk at counter with GTB 3 laps LAQ with 2# 2 x 10 Bridges 2 x 10 Re-eval components ASSESSMENT/Response to Treatment: Margi Marques is a 63 y.o. female has met all STG and LTG, and is independent with HEP. No further skilled PT services necessary., ptis therefore discharged from PT. Pt education: yes GOALS Goals Addressed This Visit's Progress COMPLETED: Feel better (pt-stated) COMPLETED: LTG 12 visits Pt will be able to negotiate one flight of stairs reciprocally --MET Pt will be able to perform sit to stand without UE support --MET Pt will be able to resume babysitting 2 y.O. grand daughter --MET Pt will be able to ambulate without AD on all surfaces -- MET PLAN POC Development/Review: Participants: Patient has met all STG and LTG, and is independent with HEP. No further skilled PT services necessary., ptis therefore discharged from PT. BILLING TOTAL TREATMENT TIME: 30 Minutes Documentation completed by Marcos Henriquez PT OUTPATIENT REHABILITATION [address] Dept: [phone] Dept PATIENT NAME: Margi Marques : 1960 DATE Ron Blackwood MD Referring provider documented in this encounter Plan of Treatment Upcoming Encounters Date Type Department Care Team (Late st Contact Info) Description 07/02/2024 8:30 AM EDT Office Visit Orthopedic Surgery - [address] [phone] Soledad Alexandre NP [address] [address] 07/09/2024 8:30 AM EDT Office Visit Adult Medicine [address] [phone] Josefina Howe PA [address] [place] [address] documented as of this encounter Visit Diagnoses Diagnosis Complex tear of medial meniscus of right knee as current injury, subsequent encounter- Primary Acute lateral meniscus tear of right knee, initial encounter Primary osteoarthritis of right knee documented in this encounter Additional Health Concerns Assessment Noted Time PHQ-9 Depression Total Score: 0 12/10/20 24 6:13 PM EST documented as of this encounter Care Teams Slasher Tender Helper Relationship Specialty Start Date End Date Carol Rhoades MD [address] [place] [address] PCP - General 08/11/1996 documented as of this encounter
== END 2024-06-25 08:59 | disposition home or self-care (01) ==
PROVIDERS: PCP Internal Medicine; Visit Provider Physician Assistant
DX: Z13.9 Encounter for screening, unspecified (principal); J01.90 Acute sinusitis, unspecified

== ENCOUNTER 2024-06-25 08:06 | Outpatient (REF) | payer MEDICARE, MEDICAID, SELFPAY ==
[2024-06-25 12:41] LABS: Influenza A PCR NEGATIVE (Negative); Influenza B PCR NEGATIVE (Negative); Resp Syncy Virus RNA Qual PCR NEGATIVE (Negative); SARS COV2 PCR INHOUSE NEGATIVE (Negative)
== END 2024-06-25 08:07 | disposition home or self-care (01) ==
LOC: HO.LAB 08:06
PROVIDERS: Physician Assistant; PCP Internal Medicine
DX: J01.90 Acute sinusitis, unspecified (principal); R09.89 Other specified symptoms and signs involving the circulatory and respiratory systems
CPT/HCPCS: 0241U; 87880; 99202

== ENCOUNTER 2024-09-14 12:42 | Outpatient (REF) | payer MEDICARE, MEDICAID, SELFPAY ==
[2024-09-14 15:25] LABS: Hemoglobin 13.3 g/dl (12.0-16.0); Mean Corpuscular HGB Conc 34.1 g/dl (31.0-35.0); Mean Corpuscular Hemoglobin 28.9 pg (27.0-33.0); Mean Corpuscular Volume 84.6 fL (80.0-98.0); Mean Platelet Volume 9.1 fL (9.4-12.3); Platelet Count 308 X10*3/uL (160-400); Red Blood Count 4.61 X10*6/uL (4.20-5.50); Red Cell Distribution Width 12.9 % (11.0-16.0)
[2024-09-14 15:33] LABS: Estimated Average Glucose 163 mg/dL; Hemoglobin A1c % 7.3 % (<6.0); Total Hemoglobin (HGBA1C) 3490.7974 umol/L
[2024-09-14 15:56] LABS: Alanine Aminotransferase 92 U/L (0-31); Albumin Level 4.5 g/dL (3.5-5.0); Anion Gap 14 (12-20); Aspartate Amino Transferase 83 U/L (5-31); Bilirubin Total 0.6 mg/dL (0.0-1.0); Blood Urea Nitrogen 11 mg/dL (9-16); Calcium 9.7 mg/dL (8.4-10.2); Carbon Dioxide 29 mmol/L (22-29); Chloride 102 mmol/L (96-108); Cholesterol 178 mg/dL (<200); Estimated Glomerular Filt Rate > 60; Glucose Random 91 mg/dL (60-115); HDL Cholesterol 50 mg/dL (>40); LDL Cholesterol Calculated 103 mg/dL (<100); Potassium 3.6 mmol/L (3.3-5.1); Sodium 141 mmol/L (135-145); Total Protein 7.4 g/dL (6.5-8.0); Triglycerides 126 mg/dL (<150)
[2024-09-14 16:14] LABS: Alkaline Phosphatase 108 U/L (39-117); Ferritin 159 ng/mL (10-250); TSH reflex Free T4 0.68 uIU/mL (0.32-4.0); Vitamin D 25-OH Total 39.3 ng/mL (>30)
[2024-09-14 16:21] LABS: Folate 15.2 ng/mL (> or = 4.0); Vitamin B12 661 pg/mL (200-900)
[2024-09-14 16:27] LABS: Reflex LDLD? No
[2024-09-15 17:49] LABS: Homocysteine 8.2 umol/L (< or = 13.4)
[2024-09-18 21:54] LABS: Methylmalonic Acid 107 nmol/L (69-390)
== END 2024-09-14 12:43 | disposition home or self-care (01) ==
LOC: HO.HMGCLDS 12:42
PROVIDERS: PCP Internal Medicine; Visit Provider Physician Assistant Medical
DX: G47.19 Other hypersomnia (principal); R53.83 Other fatigue; G47.9 Sleep disorder, unspecified; G25.2 Other specified forms of tremor; G47.63 Sleep related bruxism
CPT/HCPCS: 36415; 80053; 80061; 82306; 82607; 82728; 82746; 83036; 83090; 83921; 84443; 85027; 99202

== ENCOUNTER 2024-09-14 12:42 | Outpatient (AMB) | payer MEDICARE, MEDICAID, SELFPAY ==
[2024-09-14 13:06] VITALS: BP 118/76; PULSE 77; O2SAT 94; BMI 34.4
--- NOTE | 2024-09-14 13:06 | MHC.OFFVIS ---
Vital Signs 09/14/24 13:06 Height 5 ft 8 in Weight 226 lb BMI 34.4 BP 118/76 Blood Pressure Location Rt brachial Position Sitting Pulse 77 Pulse Source Pulse Oximeter Pulse Oximetry (%) 94 Oxygen Delivery Method Room Air Intake Visit Reasons: ENP - Snoring, PND, chronic fatigue Intake Note: Patient presents SILK EXAMINER snoring/Fatigue. Patient states that some days harder to wake her self up in AM. Takes a nap. Gets about 6hrs asleep. Tried skipping nap to try to get more sleep. Allergies Sulfa (Sulfonamide Antibiotics) [SULFA (SULFONAMIDE ANTIBIOTICS)] Allergy (Unknown, Verified 09/14/24 13:09) RASH HPI Comments Details: 63 year old female referred to us for sleep apnea evaluation by PCP dimitrios Sheets. 06/2024 T2DM is being monitored now blood sugar is 160s now, A1c was 7.2 and she was on metformin and insulin 2 years ago and is watching carbs now. HTN BP is well controlled with meds. She has trouble getting to sleep and trouble getting up, she uses a mouth guard as she grinds her teeth, and this helps with snoring. She gets dry mouth at night and drools which causes her to wake up 2-3 times to wipe her face and gargle with mouthwash. She c/o snoring and fatigue, splashes water in her face, sleeps about 6 hours daily and naps with her grand-daughter for 2 hours daily, and when tries to skip naps to see if she could get more sleep at night. She goes to bed at 9pm and wakes up at 7am, wakes up several times to use the bathroom at night. Her STM is poor forgets easily, lacks attention and can not concentrate. She tries to meditate daily at night, denies word finding difficulty, and lost her brother and sister to covid and then got . Her mood is better now. She denies headaches. She has acid reflux which is controlled with omeprazole. Her mother had alzheimers dementia at 71 and passed at 83. She has RLS symptoms, and has tried melatonin but has built a tolerance. Denies numbness and tingling, burning or pain. She feels like she has crawly sensation bilaterally with night cramps. 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 [employer] Exam Vital Signs: Last Vital Signs Pulse 77 09/14/24 13:06 BP 118/76 09/14/24 13:06 Pulse Ox 94 09/14/24 13:06 Oxygen Delivery Method Room Air 09/14/24 13:06 BMI result Body Mass Index 34.4 Const General: cooperative, comfortable and no acute distress Nutritional Appearance: average body habitus Orientation/consciousness: patient oriented x3 HEENT Face and sinus: Yes other (smile is assymetric) Teeth and gingiva: other (mallampti score of 3) Throat: Yes uvula midline Eyes Alignment and Position: alignment abnormal Pupils: Equal, round and reactive pupils present Neck Neck: Yes full ROM Resp Effort & Inspection: normal respiratory effort and able to speak in complete sentences Neuro Other: postural tremor of head, facial assymetry l. side is higher than r. side. smile is assymetric. Eyes L. eye lazy? strabismus? UE bilateral tremors of hand ever since HS. Essential? Benign? Balance is always off leaning to right, and veering to the right when walking. General: patient oriented x3 and moves all extremities Cranial nerves: Yes Facial sensation intact/muscles of mastication intact, Yes Equal, round and reactive pupils present, Yes Normal facial strength present, Yes Midline tongue present, Yes Ability to bilaterally rotate head present and Yes Ability to bilaterally elevate shoulders present Gait exam (Neuro): Normal gait present Motor exam (neuro): 5/5 motor strength present throughout, Normal motor muscle tone present throughout, Tremors during motor activity present (bilateral UE Tremor) and Motor abnormalites present Deep tendon reflexes (DTR's): Right triceps reflex intensity grade: 2+, Left triceps reflex intensity grade: 2+, Rt Biceps (C5, C6): 2+, Left biceps reflex intensity grade: 2+, Right brachioradialis reflex intensity grade: 2+, Left brachioradialis reflex intensity grade: 2+, Right patellar reflex intensity grade: 2+, Left patellar reflex intensity grade: 2+, Right ankle reflex intensity grade: 2+ and Left ankle reflex intensity grade: 2+ Coordination: [id number] test normal (abnormal test overshoots) and rapid alternating movements of the distal upper extremity normal Psych Appearance: grossly normal Speech and movement: Pressured speech present Attitude: cooperative Thought process: Normal thought process present Thought content: Normal thought content present Assessment & Plan Assessment & Plan (1) Excessive daytime sleepiness: Code(s): G47.19 - Other hypersomnia Category: Medical (2) Coarse tremors: Code(s): G25.2 - Other specified forms of tremor Category: Medical (3) Bruxism, sleep-related: Code(s): G47.63 - Sleep related bruxism Category: Medical Plan HST excessive daytimev fatigue. Labs r/o deficiencies CBC, CMP, B12, Vit D, Ferritin, Homocysteine, MMA, lyme disease, r/o bells palsey? past cva will consider MRI in future and MMSE for cognitive decline if STM persists. Will send for sleep dentistry if snoring and grinding is not corrected with cpap use. Tremors bilateral uppper extremity and postural. Orders: Orders RT home sleep study Today G47.19 - Other hypersomnia Complete Blood Count no Diff Today G47.19 - Other hypersomnia Comprehensive Met. Panel Today G47.19 - Other hypersomnia Lipid Panel with Reflex Today G47.19 - Other hypersomnia Vitamin B12 and Folate Today G47.19 - Other hypersomnia Hemoglobin A1c Today G47.19 - Other hypersomnia Ferritin Today G47.19 - Other hypersomnia Homocysteine Today G47.19 - Other hypersomnia, G47.9 - Sleep disorder, unspecified, R53.83 - Other fatigue Methylmalonic Acid Today G47.19 - Other hypersomnia, G47.9 - Sleep disorder, unspecified, R53.83 - Other fatigue Lyme Synovial Fld PCR Today G47.19 - Other hypersomnia Vitamin D 25-OH Total Today G47.19 - Other hypersomnia TSH reflex Free T4 Today G47.19 - Other hypersomnia Patient Instructions: Sleep Hygiene provided: set a scheduled bedtime and wake time to help regulate the circadian rhythm and balance the release of pituitary hormones. Sleep in a dark room, temperatures below 68 degrees, and no devices n bed. Limit caffeinated products 6 hours prior to bed, and limit fluids 2-4 hours prior to bed. Gentle night yoga, diffusing essential oils, and playing soft music can be relaxing. Coding Level of Care Code New Pt Level 4 (11500) Diagnoses Excessive daytime sleepiness G47.19 Coarse tremors G25.2 Bruxism, sleep-related G47.63 Time Spent (min) 30 Comment Evaluation of baseline tremor and MARIE Sleep Questionnaire Difficulty falling asleep: Yes Difficulty staying asleep?: Yes Number of arousals: 4 Snoring: Yes Witnessed apneas: No Gasping arousals: No Nocturia: Yes GERD: Yes Vivid dreams: Yes Acting out dreams: No Abnormal behavior in sleep: No Abnormal movements in sleep: No Morning headaches: No Excessive daytime sleepiness: Yes Daytime naps: Yes Restless legs: Yes Hallucinations: No Sleep paralysis: No Drop attacks: No Sleep Study: No CPAP: No
--- OUTSIDE RECORDS SUMMARY | 2024-09-14 14:20 | XMS_ITS | Clinical Summary ---
Author Organization 175 [facility] Address [address] [place] [address] Phone Care Team Providers Care Psychologist Military Personnel Name Role Phone Carol Rhoades MD Primary Care Provider [phone] Allergies Active Allergy Reactions Criticality Noted Date Comments Amoxicillin-Pot Clavulanate Diarrhea Low 10/14/19 09 abd pains Clarithromycin Diarrhea Low 11/21/2010 Codeine-Guaifenesin Low 05/20/2008 Feels wired on the cough syrup Diphenhydramine Anxiety Low 05/20/2008 on the benadryl Causes hyperactivity and insomnia Hydrocodone Itching Low 04/21/2013 Lisinopril Swelling Medium 04/21/2013 Loperamide Rash High 03/06/2016 Sulfamethoxazole-Trimethopr im Rash Medium 05/20/2008 Medications lancets (OneTouch Delica Plus Lancet) 33 gauge 1 each by Not Applicable route 1 (one) time each day. 09/05/19 23 Active omeprazole (PriLOSEC) [address] capsule Take 1 capsule (20 mg total) by mouth 1 (one) time each day. Do not crush or chew. 90 each 1 03/10/20 24 Active montelukast (SINGULAIR) 10 mg tablet Take 1 tablet (10 mg total) by mouth at bedtime. 90 each 1 03/10/20 24 Active losartan (COZAAR) 25 mg tablet Take 1 tablet (25 mg total) by mouth at bedtime. 90 each 1 03/10/20 24 Active atorvastatin (LIPITOR) 10 mg tablet Take 1 tablet (10 mg total) by mouth at bedtime. 90 each 1 03/10/20 24 Active albuterol HFA (PROAIR HFA ; PROVENTIL HFA ; VENTOLIN HFA) 90 mcg/actuation inhaler Inhale 2 puffs by mouth every 4 (four) hours if needed for wheezing or shortness of breath. 8.5 g 1 03/10/20 24 Active potassium chloride (KLOR-CON M20) 20 mEq CR tablet Take 1 tablet (20 mEq total) by mouth 1 (one) time each day. Tablet may be swallowed whole (do not crush/chew/suc k on) OR broken in half and each half swallowed separately OR dissolved (whole tablet) in ~4 ounces of water (allow ~2 minutes to dissolve, stir well and administer immediately). 90 each 1 03/20/20 24 Active atenoloL (TENORMIN) 25 mg tablet Take 1 tablet (25 mg total) by mouth 1 (one) time each day. 90 tablet 09/07/19 25 Active fluticasone propionate (FLONASE) 50 mcg/actuation nasal spray Administer 1 spray into each nostril 2 (two) times a day. 48 mL 09/04/19 25 Active celecoxib (CeleBREX) 100 mg capsule Take 2 capsules (200 mg total) by mouth 1 (one) time each day. 07/22/19 25 Active hydroCHLOROthi azide 12.5 mg tablet Take 1 tablet (12.5 mg total) by mouth 1 (one) time each day. 90 tablet 09/11/19 25 Active venlafaxine XR (EFFEXOR-XR) 75 mg 24 hr capsule Take 1 capsule (75 mg total) by mouth 1 (one) time each day. 90 capsule 1 09/15/19 25 Active fluticasone propionate (FLONASE) 50 mcg/actuation nasal spray Administer 2 sprays into each nostril 1 (one) time each day. 10/05/19 23 025 Discontinued venlafaxine XR (EFFEXOR-XR) 75 mg 24 hr capsule Take 1 capsule (75 mg total) by mouth 1 (one) time each day. 90 each 1 03/10/20 24 025 Discontinued hydroCHLOROthi azide 12.5 mg tablet Take 1 tablet (12.5 mg total) by mouth 1 (one) time each day. 90 each 1 03/10/20 24 025 Discontinued atenoloL (TENORMIN) 25 mg tablet Take 1 tablet (25 mg total) by mouth 1 (one) time each day. 90 each 1 03/10/20 24 025 Discontinued Active Problems Problem Noted Date Diagnosed Date Diabetic gastroparesis ([facility] V24, [facility] V28 ) 05/26/2024 Overview (05/26/2024): 09/05/23: Abnormal gastric emptying time with significant retained isotope activity of 45% at 222 minutes into the study Asthma 03/26/2024 Complex tear of medial menis cus of right knee as current injury 03/17/2024 Primary osteoarthritis of right knee 03/17/2024 Acute lateral meniscus tear of right knee 2023 Complex tear of lateral meni scus of left knee as current injury 03/10/2024 Osteoarthritis of both knees 10/15/2023 Fatty liver 01/30/2022 Benign essential tremor 04/12/2020 Overview (01/23/2024): Dr. Nye (04/07/2020) Depression 03/17/2020 Epigastric pain 09/05/2018 Hypercholesterolemia 04/30/2018 Microalbuminuria 01/11/2018 Transaminitis 12/31/2017 Type II diabetes mellitus wi th renal manifestations ([facility] V24, [facility] V28) 12/31/2017 Obesity (BMI 30.0-34.9) 01/14/2017 Eczema 01/12/2013 [...] meniscus tear of right knee 03/17/2024 03/20/2024 Gastroparesis 10/15/2023 07/09/2024 Encounters Date Type Department Care Team Description 07/13/2024 Telephone Orthopedic Surgery [facility] [address] [facility] [address] [place] [phone] Radha Esparza 07/09/2024 8:30 AM EDT [facility] [address] [place] [phone] Josefina Howe PA Type 2 diabetes mellitus with diabetic microalbuminuria, without long-term current use of insulin ([facility] V24, [facility] V28) (Primary Dx); Snoring; PND (paroxysmal nocturnal dyspnea); Chronic fatigue; Need for vaccination against Streptococcus pneumoniae; Diabetic gastroparesis (CMS/[facility] V24, [facility] V28); Obesity (BMI 30.0-34.9); Microalbuminuria; Primary hypertension; Hypercholesterolemia; Anxiety; Current severe episode of major depressive disorder without psychotic features, unspecified whether recurrent ([facility] V24, [facility] V28) 07/02/2024 8:30 AM EDT Office Visit Orthopedic Surgery [facility] [address] [facility] [address] [place] [phone] Soledad Alexandre NP Primary osteoarthritis of right knee (Primary Dx); S/P arthroscopic partial medial meniscectomy from Last 3 Months Immunizations Name Administration Dates Next Due H1N1 Inj Preservative Free 05/02/2009 Influenza Quadravalent, MDCK , 0.5ml, preservative free (Flucelvax) 6mo and older 12/23/2022,01/20/2022,03/27/2021,01/06 Influenza trivalent, 0.5mL, preservative free (Fluarix; FluLaval; Fluzone) ages 6mo and older (Afluria) 3 years and older 01/14/2024,01/18/2022,12/31/2019,12/25,12/12/2011,12/27/2010,01/20/2010 ,01/14/2009,02/06/2005 Influenza, Unspecified 12/23/2016,2015,01/24/2015,01/18 Pfizer SARS-CoV-2 COVID-19, mRNA, LNP-S, preservative free 06/30/2020 Pneumococcal conjugate 20 va lent (Prevnar 20, PCV 20) 2mo and older 07/09/2024 Pneumococcal polysaccharide 23 valent (Pneumovax 23) 2yo [...] Tubular adenoma 07/06/2011 Eczema 01/12/2013 Morbid obesity ([facility] V24, [facility] V28) 2016 DJD (degenerative joint disease) 03/06/2017 Hypercholesterolemia 04/30/2018 Fatty liver 01/30/2022 History of COVID-19 11/26/2023 Complex tear of lateral meniscus of left knee as current injury 03/10/2024 Family History Medical History Relation Name Comments Other: Other Brother Covid-19 Diabetes Father cancer ?ty pe, ESRD on dialysis, arthritis Heart attack Maternal Grandmother 49 Diabetes Mother [place], stroke, dem entia, arthritis Arthritis Sister suicide [...] Sign Reading Time Taken Comments Blood Pressure 110/82 07/09/2024 8:29 AM EDT Pulse 78 07/09/2024 8:29 AM EDT Temperature 36.1 ??C (96.9 ??F) 07/09/2024 8:29 AM ED T Respiratory Rate 16 07/09/2024 8:29 AM EDT Oxygen Saturation 92% 07/09/2024 8:29 AM EDT Inhaled Oxygen Concentration - - Weight 104 kg (229 lb) 07/09/2024 8:29 AM EDT Height 172.7 cm (5' 8 ) 07/09/2024 8:29 AM EDT Body Mass Index 34.82 07/09/2024 8:29 AM EDT Plan of Treatment Upcoming Encounters Date Type Department Care Team (Late st Contact Info) Description 10/22/2024 8:30 AM EDT Office Visit Adult Medicine [facility] [address] [place] [phone] Carol Rhoades MD [address] [place] [address] Health Maintenance Due Date Last Done Comments RSV Immunization Adult Patients (1 - Risk 60-74 years 1-dose series) 2020 HIV Screening 03/17/2022 COVID-19 Vaccine ( season) 2023 03/21/2021, 07/22/2020, 06/30/2020 Diabetes: Annual Retina Eye Exam 08/27/2024 08/28/2023 Diabetes: Annual Foot Exam 10/14/2024 10/15/2023 Diabetes: Blood Sugar Control Test (HGBA1C) 12/31/2024 06/30/2024, 03/09/2024, 10/08/2023, Additional history exists Depression Screening 03/17/2025 03/17/2024, 01/07/20 Social Influencers of Health Screening 03/17/2025 03/17/2024 Diabetes: Annual Urine Albumin-Creatinine Ratio (uACR) 06/30/2025 06/30/2024, 06/04/2023 Diabetes: Annual GFR (Glomerular Filtration Rate) 06/30/2025 06/30/2024, 03/23/2024, 03/17/2024, Additional history exists Hypertension/CHF/CAD Annual BMP Blood Test 06/30/2025 06/30/2024, 03/23/2024, 03/17/2024, Additional history exists Medicare Annual Wellness Visit 2025 Postponed from 03/17/2022 (Not clinically appropriate to address at this time) Cervical Cancer Screening: Pap Smear 05/07/2026 05/07/2023 Breast Cancer Screening 08/24/2026 08/24/2024, 02/19 Colorectal Cancer Screening: Colonoscopy 05/08/2027 05/08/2022 DTaP,Tdap,and Td Vaccines (3 - Td or Tdap) 12/01/2028 12/01/2018, 01/17/2009 Cholesterol Screening (Lipid Panel) 06/30/2029 06/30/2024, 10/08/2023, 10/08/2023 Hepatitis C Screening Completed 01/11/2018 Zoster Vaccines Completed 01/22/2020, 12/06/2019 Influenza Vaccine Completed 01/14/2024, , 01/20/2022, Additional history exists Pneumococcal Vaccine: 50+ Years Completed 07/09/2024, 01/01/2005 Pneumococcal Vaccine: Pediatrics (0 to 5 Years) and At-Risk Patients (6 to 64 Years) Completed 07/09/2024, 01/01/2005 HIB Vaccines Aged Out No longer eligi [...] age to complete this topic Meningococcal B Vaccine Aged Out No l onger eligible based on patient's age to complete this topic RSV Immunization Patients Under 20 months Aged Out No longer eligible b ased on patient's age to complete this topic Varicella Vaccines Aged Out No longer eligible based on patient's age to complete this topic Procedures Procedure Name Priority Date/Time Associated Diagnosis Comments EXTERNAL ULTRASOUND REPORT 09/02/2024 EXTERNAL ULTRASOUND REPORT 09/02/2024 EXTERNAL ULTRASOUND REPORT 09/02/2024 EXTERNAL MAMMOGRAM REPORT 08/24/2024 [place] ARTHROCENTESIS/ASPIRA TION/INJECTION MAJOR JOINT/BURSA W/O U/S GUIDANCE Routine 07/02/2024 8:30 AM EDT Primary osteoarthritis of right knee COMPREHENSIVE METABOLIC PANEL Routine 06/30/2024 7:52 AM EDT Hypokalemia Type 2 diabetes mellitus with diabetic microalbuminuria, without long-term current use of insulin ([facility] V24, CMS/[facility] V28) Hypercholesterolemia HEMOGLOBIN A1C Routine 06/30/2024 7:52 AM EDT Hypokalemia Type 2 diabetes mellitus with diabetic microalbuminuria, without long-term current use of insulin ([facility] V24, CMS/[facility] V28) Hypercholesterolemia LIPID PANEL WITH REFLEX TO DIRECT LDL Routine 06/30/2024 7:52 AM EDT Hypokalemia Type 2 diabetes mellitus with diabetic microalbuminuria, without long-term current use of insulin (CMS/HCC V24, CMS/[facility] V28) Hypercholesterolemia MICROALBUMIN CREATININE URINE RATIO Routine 06/30/2024 7:52 AM EDT Hypokalemia Type 2 diabetes mellitus with diabetic microalbuminuria, without long-term current use of insulin (CMS/[facility] V24, CMS/[facility] V28) Hypercholesterolemia DEPRESSION SCREENING Routine 01/07/2024 DIABETES FOOT EXAM Routine 10/15/2023 DIABETES EYE EXAM Routine 08/28/2023 PAP SMEAR Routine 05/07/2023 COLONOSCOPY Routine 05/08/2022 HEPATITIS C SCREENING Routine 01/11/2018 from Last 3 Months or Most Recently Relevant to Health Maintenance Results * External Ultrasound Report (09/02/2024) Only the most recent of3 resultswithin the time period is included. Anatomical Region Laterality Modality Ultrasound us Provider [facility] US PROCEDURES Final Result * External Mammogram Report (08/24/2024) Anatomical Region Laterality Modality Mammography us Provider [facility] BI PROCEDURES Final Result * KS ARTHROCENTESIS/ASPIRATION/INJECTION MAJOR JOINT/BURSA W/O U/S GUIDANCE (07/02/2024 8:30 AM EDT) Narrative Won Aldana MD - 07/02/2024 8:30 AM EDT Soledad Alexandre NP ? 07/02/2024 11:51 AM L Inj/Asp: R knee Indications: pain Details: 22 G needle, anterolateral approach Medications: 60 mg hyaluronate sodium, stabilized 60 mg/3 mL; 2 mL lidocaine 1 % Outcome: tolerated well, no immediate complications Informed Consent: ??Laterality: ??Right ??Relevant images/test results available and reviewed: yes ?Health status cleared: ??Yes ??Procedure/treatment, purpose, treatment alternatives, risks/potential complications and benefits explained: yes ?Risk/complications/benefits details: ??Risks and benefits associated with the injection reviewed which can include but not limited to infection, bleeding, bruising, transient synovitis, no improvement in symptoms. ??Patient questions answered: yes ?Patient agrees, verbalizes understanding, and wants to proceed: yes ?Consent given by: ??Patient ??Informed consent discussion completed by Physician/TORI with patient: ?? Verbal ??Pre-procedure timeout performed: yes ?? us Soledad Alexandre NP IN CLINIC/BEDSIDE ORDER ANJALI Final Result * (ABNORMAL) Lipid panel with reflex to direct LDL (06/30/2024 7:52 AM EDT) Cholesterol 186 0 - 200 mg/dL LAB CHEMISTRY METHOD 06/30/2024 10:44 AM EDT [facility] Triglycerides 168(H) 0 - 150 mg/dL LAB CHEMISTRY METHOD 06/30/2024 10:44 AM EDT [facility] HDL 55 >=40 mg/dL LAB CHEMISTRY METHOD 06/30/2024 10:44 AM EDT [facility] LDL Calculated 97 0 - 100 mg/dL LAB CHEMISTRY METHOD 06/30/2024 10:44 AM EDT [facility] VLDL Cholesterol Marco Antonio 33.6 mg/dL LAB CHEMISTRY METHOD 06/30/2024 10:44 AM EDT [facility] Non HDL Chol. (LDL+VLDL) 131 <145 mg/dL LAB CHEMISTRY METHOD 06/30/2024 10:44 AM EDT [facility] Chol/HDL Ratio 3.4 0.0 - 4.4 LAB CHEMISTRY METHOD 06/30/2024 10:44 AM EDT [facility] Blood Venous blood specimen / Unknown Venipuncture / Unknown 06/30/2024 7:52 AM EDT 06/30/2024 7:52 AM EDT us Carol Rhoades MD LAB BLOOD ORDERABLES Final Resul t [facility] [address] [place] [address], [place] [phone] * (ABNORMAL) Microalbumin creatinine urine ratio (06/30/2024 7:52 AM EDT) Creatinine, Urine 536.0 mg/dL LAB CHEMISTRY METHOD 06/30/2024 11:51 AM EDT [facility] Microalb, Ur 708.0(H) 0.0 - 29.0 mg/L LAB CHEMISTRY METHOD 06/30/2024 11:51 AM EDT [facility] Microalb/Crea t Ratio 132(H) <30 mg/g creat LAB CHEMISTRY METHOD 06/30/2024 11:51 AM EDT [facility] Urine Urine specimen obtained by clean catch procedure / Unknown Non-blood Collection / Unknown 06/30/2024 7:52 AM EDT 06/30/2024 7:52 AM EDT us Carol Rhoades MD LAB URINE ORDERABLES Final Resul t Performing Organization Address [facility] de Phone Number [facility] [address] [place] [address], [place] [phone] * (ABNORMAL) Hemoglobin A1c (06/30/2024 7:52 AM EDT) Hemoglobin A1C 7.2(H) <6.5 % LAB CHEMISTRY METHOD 06/30/2024 11:43 AM EDT [facility] Mean Bld Glu Estim. 160 mg/dL LAB CHEMISTRY METHOD 06/30/2024 11:43 AM EDT [facility] Blood Venous blood specimen / Unknown Venipuncture / Unknown 06/30/2024 7:52 AM EDT 06/30/2024 7:52 AM EDT us Carol Rhoades MD LAB BLOOD ORDERABLES Final Resul t Performing Organization Address City/[facility]/ZIP Co de Phone Number [facility] [address] [place] [address], [place] [phone] * (ABNORMAL) Comprehensive metabolic panel (06/30/2024 7:52 AM EDT) Sodium 137 133 - 145 mmol/L LAB CHEMISTRY METHOD 06/30/2024 10:[address] [facility] Potassium 3.6 3.5 - 5.5 mmol/L LAB CHEMISTRY METHOD 06/30/2024 10:[address] [facility] Chloride 100 96 - 110 mmol/L LAB CHEMISTRY METHOD 06/30/2024 10:[address] [facility] CO2 30 21 - 32 mmol/L LAB CHEMISTRY METHOD 06/30/2024 10:[address] [facility] Anion Gap 7 3 - 11 LAB CHEMISTRY METHOD 06/30/2024 10:[address] [facility] Glucose 140(H) 70 - 100 mg/dL LAB CHEMISTRY METHOD 06/30/2024 10:[address] [facility] BUN 12 5 - 25 mg/dL LAB CHEMISTRY METHOD 06/30/2024 10:[address] [facility] Creatinine 0.77 0.50 - 1.10 mg/dL LAB CHEMISTRY METHOD 06/30/2024 10:[address] [facility] eGFR 87 >=60 mL/min/1. 73m2 LAB CHEMISTRY METHOD 06/30/2024 10:[address] [facility] Comment:Calculation based on the??Chronic Kidney Disease Epidemiology Collaboration (CKD-EPI) equation refit??without adjustment for race. BUN/Creatinine Ratio 15.6 LAB CHEMISTRY METHOD 06/30/2024 10:[address] [facility] Calcium 9.5 8.5 - 10.5 mg/dL LAB CHEMISTRY METHOD 06/30/2024 10:[address] [facility] AST (SGOT) 43(H) 10 - 42 unit/L LAB CHEMISTRY METHOD 06/30/2024 10:[address] [facility] ALT (SGPT) 62(H) 10 - 60 unit/L LAB CHEMISTRY METHOD 06/30/2024 10:[address] [facility] Alkaline Phosphatase 136(H) 42 - 121 unit/L LAB CHEMISTRY METHOD 06/30/2024 10:44 AM EDT [facility] Total Protein 7.6 6.0 - 8.0 g/dL LAB CHEMISTRY METHOD 06/30/2024 10:44 AM EDT [facility] Albumin 3.9 3.2 - 5.0 g/dL LAB CHEMISTRY METHOD 06/30/2024 10:44 AM EDT [facility] Total Bilirubin 0.6 0.0 - 1.4 mg/dL LAB CHEMISTRY METHOD 06/30/2024 10:44 AM EDT [facility] Blood Venous blood specimen / Unknown Venipuncture / Unknown 06/30/2024 7:52 AM EDT 06/30/2024 7:52 AM EDT Carol Rhoades MD LAB BLOOD ORDERABLES Final Resul t [facility] [address] [place] [address], * Depression Screening (01/07/2024) [facility] Depression Screening abstracted Result [facility] Provider HEALTH MAINTENANCE Final Result * Diabetes Foot Exam (10/15/2023) [facility] Diabetes: Annual Foot Exam abstracted [facility] Provider HEALTH MAINTENANCE Final Result * Diabetes Eye Exam (08/28/2023) [facility] Diabetes: Annual Retina Eye Exam abstracted [facility] Provider HEALTH MAINTENANCE Final Result * Pap Smear (05/07/2023) [facility] Pap smear no interpretation , abstracted Historical Provider HEALTH MAINTENANCE Final Result * Colonoscopy (05/08/2022) [facility] Colonoscopy no interpretation , abstracted Anatomical Region Laterality Modality Other us Historical Provider HEALTH MAINTENANCE Final Result * Hepatitis C Screening (01/11/2018) Hepatitis C Screening abstracted Historical Provider HEALTH MAINTENANCE Final Result from Last 3 Months or Most Recently Relevant to Health Maintenance Insurance MEDICA[place] - [place] MEDICARE Advance Directives * Full Code - [...] currently active code status orders. Care Teams Psychologist Military Personnel Relationship Specialty Start Date End Date Carol Rhoades MD [address] [facility] [place] [address] PCP - General 08/11/1996
== END 2024-09-14 14:09 | disposition home or self-care (01) ==
LOC: HO.HSMS 12:43
PROVIDERS: PCP Internal Medicine; Visit Provider Physician Assistant Medical
DX: G47.19 Other hypersomnia (principal); G25.2 Other specified forms of tremor; G47.63 Sleep related bruxism
CPT/HCPCS: 99204

== ENCOUNTER 2024-10-08 08:37 | Outpatient (REF) | payer MEDICARE, MEDICAID, SELFPAY ==
--- OUTSIDE RECORDS SUMMARY | 2024-02-04 04:15 | XMS_ITS | Continuity of Care Document ---
Author Organization [facility] Address [address] [place] [address] Phone Care Team Providers Care Linen Manager Name Role Phone Doug ORTA, RVT, RPVI, Adam Unavailable U navailable Allergies, Adverse Reactions, Alerts Substance Reaction Status Criticality No Known Allergies Active No Inform ation Medications Medication Instructions Dosage Effective Dates (start - stop) Status Comments albuterol sulfate HFA 90 mcg/actuation aerosol inhaler - Active atenolol 25 mg tablet take 1 tablet by oral route every day 25 MG - Active atorvastatin 10 mg tablet take 1 tablet by oral route every day 10 MG - Active celecoxib 200 mg capsule take 1 capsule by oral route every day 200 MG - Active fluticasone propionate 50 mcg/actuation nasal spray,suspension - Active Freestyle InsuLinx Test Strips - Active hydrochlorothiazide 12.5 mg capsule - Active hydroxyzine HCl 25 mg tablet - Active losartan 25 mg tablet - Active magnesium 200 mg tablet - Active montelukast 10 mg tablet - Activ e omeprazole 20 mg capsule,delayed release - Active Senna Plus 8.6 mg-50 mg tablet - Active venlafaxine 75 mg tablet - Activ e Vitamin D3 50 mcg (2,000 unit) tablet - Active Procedures Procedure Date Office/Outpt E&M Established 10 Mins- CT & [place] Duplex Scan-extrem Veins; Comp- CT & [place] Duplex Scan-extrem Veins; Uni/ CT & [place] S ep- Inj Scleros Solut; Mx Veins 1- CT & [place] S ep Ultrason Guidan Needle Bx-rad- CT & [place] S ep-18-2024 Duplex Scan-extrem Veins; Uni/ CT & [place] S Endovenous Laser, 1st Vein- CT & [place] Duplex Scan-extrem Veins; Uni/ CT & [place] S Inj Scleros Solut; Mx Veins 1- CT & [place] S Ultrason Guidan Needle Bx-rad- CT & [place] S Duplex Scan-extrem Veins; Uni/ CT & [place] S Endovenous Laser, 1st Vein- CT & [place] Ultrason Guidan Needle Bx-rad- CT & [place] A Inj Sclerosing Solution; Sngl- CT & [place] A Offic/outpt E&m Estab 5 Min Trial- Telem edicine CT & [place] Office/Oupt E&M New Pt 45 Mins- CT & [place] Duplex Scan-extrem Veins; Comp- CT & [place] Advance Directives Directive Yes / No Effective Date File Name No Information Encounters Encounter Description Practice Location Reason(s) For Visit Diagnoses Date Provider Providers Copied on Encounter Office/Outpt E&M Established 10 Mins- [place] & [place] [facility], [address] [place] [address] Dr Stovall [address] [address]Greg [place], [id number], [place] tel:[phone] [facility] Varicose veins of bilateral lower extremities with other complications Pruritus, unspecifiedEs sential (primary) hypertension Oct-2 4 Doug ORTA, RVT, RPVI Adam. [address] [address], [place], [place], [id number] , [place]. tel:[phone] Referring Provider: Carol Rhoades MD B., [address] [place] [address], [address]. tel:[phone] [facility], [address] [place] [address] Dr Stovall [address]Greg [place], [id number], [place] tel:[phone] [facility] Chronic venous hypertension (idiopathic) with other complications of bilateral lower extremity Oct- 4 Doug ORTA RVT, RPVI Robert. [address] [place] [address], [place], [place], [id number] , [place]. tel:[phone] Referring Provider: Carol Tracy, [address] [place] [address], [address]. tel:[phone] [facility], [address] [place] [address] Dr Stovall [address]Suite Greg Candelaria [place], [id number], [place] tel:[phone] CV[place] - [place] Encounter for follow-up examination after completed treatment for conditions other than malignant neVaricose veins of right lower extremity with pain Sep- 4 Doug ORTA RVT, RPVI Robert. [address] [place] [address], [place], [place], [id number] , [place]. tel:[phone] Referring Provider: Carol Tracy, [address] [place] [address], [address]. tel:[phone] [place] [facility], [address] [place] [address] Dr Stovall [address]Suite Greg Cand[place], [id number], [place] tel:[phone] [facility] [place] Varicose veins of right lower extremity with other complications Sep- 4 Doug ORTA RVT, RPVI Robert. [address] [place] [address], [place], [place], [id number] , [place]. tel:[phone] Referring Provider: Carol Tracy, [address] [place] [address], [address]. tel:[phone] [facility], [address] [place] [address] Dr Stovall [address] 1000Greg [place], [id number], [place] tel:[phone] [facility] [place] Encounter for follow-up examination after completed treatment for conditions other than malignant neoplasmPain in right leg Sep- 4 Doug ORTA RVT, RPVI Robert. [address] [place] [address] [address] [address], [facility], [place], [id number] , [place]. tel:[phone] Referring Provider: Carol Tracy, [address] [place] [address], [address]. tel:[phone] [facility], [address] [place] [address] Dr Stovall 1000Suite 1000Greg [place], [id number], [place] tel:[phone] CVR - [facility] Varicose veins of right lower extremity with other complications Sep-1 4 Doug ORTA RVT, MOISÉS Medina. [address] [place] [address], [facility], [place], [id number] , [place]. [phone] Referring Provider: Carol Tracy, [address] [place] [address], [address]. tel:[phone] [facility], [address] [place] [address] [address] [address]Greg [place], [id number], [place] tel:[phone] CVR - [facility] Encounter for follow-up examination after completed treatment for conditions other than malignant neoplasmVaric ose veins of left lower extremity with pain Sep-1 4 Doug ORTA RVT, MOISÉS Medina. [address] [place] [address], [facility], [place], [id number] , [place]. tel:[phone] Referring Provider: Carol Tracy, [address] [place] [address], [address]. tel:[phone] [facility], [address] [place] [address] Dr Stovall 1000[address] 1000Greg [place], [id number], [place] tel:[phone] [facility] - [place] [facility] [place] No Information Sep-1 0- 4 Doug ORTA RVT, MOISÉS Medina. [address] [place] [address], Suite [facility], [facility], [place], [id number] , [place]. [phone] [facility], [address] [place] [address] Dr [address] [address]Greg [place], [id number], [place] tel:[phone] [facility] Varicose veins of left lower extremity with other complications Dec-0 4 Doug ORTA RVT, MOISÉS Medina. [address] [place] [address], [place], [place], [id number] , [place]. [phone] Referring Provider: Carol Tracy, [address] [place] [address], [address]. tel:[phone] [facility], [address] [place] [address] Dr Stovall 1000Suite 1000Greg [place], [id number], [place] tel:[phone] [facility] Encounter for follow-up examination after completed treatment for conditions other than malignant nePain in left leg Dec-0 4 Doug ORTA RVT, MOISÉS Medina. [address] [place] [address], [place], [place], [id number] , [place]. [phone] Referring Provider: Carol Tracy, [address] [place] [address], [address]. tel:[phone] [facility], [address] [place] [address] Dr Stovall [address]Suite Greg Candelaria [place], [id number], [place] tel:[phone] [facility] Varicose veins of left lower extremity with other complications 4 Doug ORTA RVT, MOISÉS Medina. [address] [place] [address], [place], [place], [id number] , [place]. tel:[phone] Referring Provider: Carol Tracy, [address] [place] [address], [address]. tel:[phone] Offic/outpt E&m Estab 5 Min Trial- Telemedicine CT & [place] [facility] [place]URO, [address] [place] [address] Dr Stovall 1000Suite 1000Greg [place], [id number], [place] tel:[phone] [facility] Varicose veins of bilateral lower extremities with painRestless legs syndromePruri tus, unspecifiedEs sential (primary) hypertension Nov- 4 Doug ORTA RVT, MOISÉS Medina. [address] [facility], [address] [address], [place], [place], [id number] , [place]. tel:[phone] Referring Provider: Carol Tracy, [address] [place] [address], [address]. tel:[phone] Office/Oupt E&M New Pt 45 Mins- CT & [place] [facility], [address] [place] [address] [facility] [address] [address] [place], [id number], [place] tel:[phone] [facility] Varicose veins of bilateral lower extremities with other complications Pain in right lower legPain in left lower legPain in right legRestless legs syndromeEssen tial (primary) hypertensionP ruritus, unspecifiedPa in in left legCramp and spasm 4 Doug ORTA RVT, MOISÉS Medina. [address] [place] [address], [address] [address], [place], [place], [id number] , [place]. tel:[phone] Referring Provider: Carol Tracy, [address] [place] [address], [address]. tel:[phone] [facility], [address] [place] [address] [address] 1000Greg [place], [id number], [place] tel:[phone] [facility] Chronic venous hypertension (idiopathic) with other complications of bilateral lower extremity 4 Doug ORTA RVT, MOISÉS Medina. [address] [place] [address], [place], [place], [id number] , [place]. tel:[phone] Referring Provider: Carol Tracy, [address] [place] [address], [address]. tel:[phone] Family History Family Member Type Diagnosis Age At Onset No Information Payers Payer name Insurance type Covered constitution party ID Authoriza tion(s) Medicare ELMER MEADOWS [id number] Medical Assistance ELMER YIFAN [id number] Social History Type Description Quantity Date Captured Comments Alcohol Use Details Unknown Caffeine Use Details Unknown Tobacco Use Status Current non-smoker Smoking Status Never Smoker Non-Smoking Tobacco Use Details : No Details Available : No Details Available Sex Female Vital Signs Date / Time: Height Weight BMI Pulse Rate Blood Pressure Temperature Respiratory Rate Body Surface Area Head Circumference Head Circ. Percentile Wt./Trever. Percentile BMI percentile Pulse Ox Inhaled Ox 97.520 kg (215.00 lbs) 32.8 1 kg/m eter (2) 130/84 mm[Hg] Chief Complaint And Reason For Visit No Information Reason For Referral Reason For Referral No Information Plan Of Treatment Date Type Action Status Goal Diet education completed Goal Diet education completed Referral Ordered: Weight management: Referral to physician timeframe: 3 Months (related to Body mass index (BMI) 32.0-32.9, adult) ordered Referral Ordered: Weight management: Referral to physician timeframe: 3 Months (related to Body mass index (BMI) 32.0-32.9, adult) ordered History Of Present Illness Encounter Date Complaint History Of Prese nt Illness No Information Functional Status Date Functional Assessmen t No Information Instructions Date Instruction Additional Infor mation Patient education booklet given Related to Varicose veins of bilateral lower extremities with other complications Compression stocking usage as conservative measure Related to Varicose veins of bilateral lower extremities with other complications Lifestyle education Related to B homer mass index (BMI) 32.0-32.9, adult Diet education Related to Body mass index (BMI) 32.0-32.9, adult Giving Encouragement to exercise Related to Body mass index (BMI) 32.0-32.9, adult Patient education booklet given Related to Varicose veins of bilateral lower extremities with pain Pre and post instruc tions reviewed and provided Related to Varicose veins of bilateral lower extremities with pain Pre and post instruc tions reviewed and provided Related to Varicose veins of bilateral lower extremities with other complications Patient education booklet given Related to Varicose veins of bilateral lower extremities with other complications Lifestyle education Related to B homer mass index (BMI) 32.0-32.9, adult Giving Encouragement to exercise Related to Body mass index (BMI) 32.0-32.9, adult Diet education Related to Body mass index (BMI) 32.0-32.9, adult Assessments Type Assessment Date No Information Patient Care Teams Name Effective Dates (start - stop) Status Members No Information
--- OUTSIDE RECORDS SUMMARY | 2024-10-08 08:44 | XMS_ITS | Clinical Summary ---
Author Organization 175 [facility] Address [address] [place] [address] Phone Care Team Providers Care Dock Superintendent Name Role Phone Carol Rhoades MD Primary Care Provider [phone] Allergies Active Allergy Reactions Criticality Noted Date [...] (one) time each day. 09/05/19 23 Active losartan (COZAAR) 25 mg tablet Take [...] Tablet may be swallowed whole (do not crush/chew/amin ck on) OR broken in half and each [...] day. 90 capsule 1 09/15/19 25 Active glucose blood (Freestyle [employer]) test strip Use to check blood sugar once daily 100 strip 1 09/19/19 25 Active montelukast (SINGULAIR) 10 mg tablet Take 1 tablet (10 mg total) by mouth at bedtime. 90 tablet 09/24/19 25 Active omeprazole (PriLOSEC) [address] capsule TAKE 1 CAPSULE BY MOUTH 1 TIME EACH DAY. DO NOT CRUSH OR CHEW. 90 capsule 1 10/07/19 25 Active venlafaxine XR (EFFEXOR-XR) 75 mg 24 hr capsule Take 1 capsule (75 mg total) by mouth 1 (one) time each day. 90 each 1 03/10/20 24 025 Discontinued omeprazole (PriLOSEC) [address] capsule Take 1 capsule (20 mg total) by mouth 1 (one) time each day. Do not crush or chew. 90 each 1 03/10/20 24 025 Discontinued montelukast (SINGULAIR) 10 mg tablet Take 1 tablet (10 mg total) by mouth at bedtime. 90 each 1 03/10/20 24 025 Discontinued hydroCHLOROthi azide 12.5 mg tablet Take 1 tablet (12.5 mg total) by mouth 1 (one) time each day. 90 each 1 03/10/20 24 025 Discontinued Freestyle [employer] test strip USE TO CHECK BLOOD SUGARS ONCE DAILY 100 strip 1 09/16/19 25 025 Discontinued(Re order) Active Problems Problem Noted Date Diagnosed Date Diabetic gastroparesis ([facility] V24, [facility] V28 ) 05/26/2024 Overview (05/26/2024): 09/05/23: [...] II diabetes mellitus wi th renal manifestations ([facility] V24, [facility] V28) 12/31/2017 Obesity (BMI 30.0-34.9) 01/14/2017 [...] Care Team Description 07/13/2024 Telephone Orthopedic Surgery - [facility] [address] [place] [address] Rahda Esparza 07/09/2024 8:30 AM EDT Office Visit Adult Medicine [address] [phone] Josefina Howe PA Type 2 diabetes mellitus with diabetic microalbuminuria, without long-term current use of insulin ([facility] V24, [facility] V28) (Primary Dx); Snoring; PND (paroxysmal nocturnal dyspnea); Chronic fatigue; Need for vaccination against Streptococcus pneumoniae; Diabetic gastroparesis ([facility] V24, [facility] V28); Obesity (BMI 30.0-34.9); Microalbuminuria; Primary hypertension; Hypercholesterolemia; Anxiety; Current severe episode of major depressive disorder without psychotic features, unspecified whether recurrent ([facility] V24, [facility] V28) from Last 3 Months Immunizations Name Administration [...] Tubular adenoma 07/06/2011 Eczema 01/12/2013 Morbid obesity ([facility] V24, [facility] V28) 2016 DJD (degenerative joint disease) 03/06/2017 Hypercholesterolemia 04/30/2018 Fatty liver 01/30/2022 History of COVID-19 11/26/2023 Complex tear of lateral meniscus of left knee as current injury 03/10/2024 Family History Medical History Relation Name Comments Other: Other Brother Covid-19 Diabetes Father cancer ?ty pe, ESRD on dialysis, arthritis Heart attack Maternal Grandmother 49 Diabetes Mother [place], stroke, dem entia, arthritis Arthritis Sister suicide [...] care for your loved ones. For example, children's service worker or elderly care for an older adult? [...] 78 07/09/2024 8:29 AM EDT Temperature 36.1 C (96.9 F) 07/09/2024 8:29 AM EDT Respiratory Rate 16 07/09/2024 8:29 AM EDT Oxygen Saturation 92% 07/09/2024 8:29 AM EDT Inhaled Oxygen Concentration - - Weight 104 kg (229 lb) 07/09/2024 8:29 AM EDT Height 172.7 cm (5' 8 ) 07/09/2024 8:29 AM EDT Body Mass Index 34.82 07/09/2024 8:29 AM EDT Plan of Treatment Upcoming Encounters Date Type Department Care Team (Late st Contact Info) Description 10/15/2024 10:00 AM EDT Consult Adult Medicine [address] [phone] Carol Rhoades MD [address] [place] [address] 11/11/2024 8:30 AM EDT Office Visit Adult Medicine [address] [phone] Carol Rhoades MD [address] [place] [phone] Health Maintenance Due Date Last Done Comments RSV Immunization Adult Patients (1 - Risk 60-74 years 1-dose series) 2020 HIV Screening 03/17/2022 COVID-19 Vaccine ( season) 2023 03/21/2021, 07/22/2020, 06/30/2020 Diabetes: Annual Retina Eye Exam 08/27/2024 08/28/2023 Diabetes: Annual Foot Exam 10/14/2024 10/15/2023 Influenza Vaccine (#1) 2024 , 12/23/2022, 01/20/2022, Additional history exists Diabetes: Blood Sugar Control Test (HGBA1C) 12/31/2024 06/30/2024, 03/09/2024, 10/08/2023, Additional history exists Depression Screening 03/17/2025 03/17/2024, 01/07/20 24 Social [...] Completed 01/11/2018 Zoster Vaccines Completed 01/22/2020, 12/06/2019 Pneumococcal Vaccine: 50+ Years Completed 07/09/2024, 01/01/2005 [...] ULTRASOUND REPORT 09/02/2024 EXTERNAL MAMMOGRAM REPORT 08/24/2024 MICROALBUMIN CREATININE URINE RATIO Routine 06/30/2024 7:52 AM EDT Hypokalemia Type 2 diabetes mellitus with diabetic microalbuminuria, without long-term current use of insulin (CMS/HCC V24, CMS/HCC V28) Hypercholesterolem ia COMPREHENSIVE METABOLIC PANEL Routine 06/30/2024 7:52 AM EDT Hypokalemia Type 2 diabetes mellitus with diabetic microalbuminuria, without long-term current use of insulin (CMS/HCC V24, CMS/HCC V28) Hypercholesterolem ia HEMOGLOBIN A1C Routine 06/30/2024 7:52 AM EDT Hypokalemia Type 2 diabetes mellitus with diabetic microalbuminuria, without long-term current use of insulin (CMS/HCC V24, CMS/HCC V28) Hypercholesterolem ia LIPID PANEL WITH REFLEX TO DIRECT LDL Routine 06/30/2024 7:52 AM EDT Hypokalemia Type 2 diabetes mellitus with diabetic microalbuminuria, without long-term current use of insulin (CMS/HCC V24, CMS/HCC V28) Hypercholesterolem ia HM DEPRESSION SCREENING Routine 01/07/2024 DIABETES FOOT EXAM Routine 10/15/2023 DIABETES EYE EXAM Routine 08/28/2023 PAP SMEAR Routine 05/07/2023 COLONOSCOPY Routine 05/08/2022 HEPATITIS C SCREENING Routine 01/11/2018 from Last 3 Months or Most Recently Relevant to Health Maintenance Results * External Ultrasound Report (09/02/2024) Only the most recent of3 resultswithin the time period is included. Anatomical Region Laterality Modality Ultrasound us Provider [facility] US PROCEDURES Final Result * External Mammogram Report (08/24/2024) Anatomical Region Laterality Modality Mammography us Provider [facility] BI PROCEDURES Final Result * (ABNORMAL) Lipid panel with reflex to direct LDL (06/30/2024 7:52 AM EDT) Cholesterol 186 0 - 200 mg/dL LAB CHEMISTRY METHOD 06/30/2024 10:44 AM [facility] Triglycerides 168(H) 0 - 150 mg/dL LAB CHEMISTRY METHOD 06/30/2024 10:44 AM [facility] HDL 55 >=40 mg/dL LAB [facility] LDL Calculated 97 0 - 100 mg/dL LAB CHE[facility]STRY METHOD [facility] VLDL Cholesterol Marco Antonio 33.6 mg/dL LAB CHEMISTRY METHOD 06/30/2024 10:44 AM [facility] Non HDL Chol. (LDL+VLDL) 131 <145 mg/dL LAB CHEMISTRY METHOD 06/30/2024 10:[address] [facility] Chol/HDL Ratio 3.4 0.0 - 4.4 LAB CHEMISTRY METHOD 06/30/2024 10:[address] [facility] Blood Venous blood specimen / Unknown Venipuncture / Unknown 06/30/2024 7:52 AM EDT 06/30/2024 7:52 AM EDT Carol Rhoades MD LAB BLOOD ORDERABLES Final Resul t Performing Organization Address City/[facility]/ZIP Co de Phone Number [facility] [address] [place] [address], [place] [phone] * (ABNORMAL) Microalbumin creatinine urine ratio (06/30/2024 7:52 AM EDT) Creatinine, Urine 536.0 mg/dL LAB CHEMISTRY METHOD 06/30/2024 11:[address] [facility] Microalb, Ur 708.0(H) 0.0 - 29.0 mg/L LAB CHEMISTRY METHOD 06/30/2024 11:[address] [facility] Microalb/Crea t Ratio 132(H) <30 mg/g creat LAB CHEMISTRY METHOD 06/30/2024 11:[address] [facility] Urine Urine specimen obtained by clean catch procedure / Unknown Non-blood Collection / Unknown 06/30/2024 7:52 AM EDT 06/30/2024 7:52 AM EDT us Carol Rhoades MD LAB URINE ORDERABLES Final Resul t [facility] [address] [place] [address], [place] [phone] * (ABNORMAL) Hemoglobin A1c (06/30/2024 7:52 AM EDT) Hemoglobin A1C 7.2(H) <6.5 % LAB CHEMISTRY METHOD 06/30/2024 11:[address] [facility] Mean Bld Glu Estim. 160 mg/dL LAB CHEMISTRY METHOD 06/30/2024 11:43 AM [facility] Blood Venous blood specimen / Unknown Venipuncture / Unknown 06/30/2024 7:52 AM EDT 06/30/2024 7:52 AM EDT us Carol Rhoades MD LAB BLOOD ORDERABLES Final Resul t [facility] [address] [place] [address], [place] [phone] * (ABNORMAL) Comprehensive metabolic panel (06/30/2024 7:52 AM EDT) Sodium 137 133 - 145 mmol/L LAB CHEMISTRY METHOD 06/30/2024 10:44 AM [facility] Potassium 3.6 3.5 - 5.5 mmol/L LAB CHEMISTRY METHOD 06/30/2024 10:44 AM [facility] Chloride 100 96 - 110 mmol/L LAB CHEMISTRY METHOD 06/30/2024 10:44 AM [facility] CO2 30 21 - 32 mmol/L LAB CHEMISTRY METHOD 06/30/2024 10:44 AM [facility] Anion Gap 7 3 - 11 LAB CHEMISTRY METHOD 06/30/2024 10:44 AM [facility] Glucose 140(H) 70 - 100 mg/dL LAB CHEMISTRY METHOD 06/30/2024 10:44 AM [facility] BUN 12 5 - 25 mg/dL LAB CHEMISTRY METHOD 06/30/2024 10:44 AM [facility] Creatinine 0.77 0.50 - 1.10 mg/dL LAB CHEMISTRY METHOD 06/30/2024 10:44 AM [facility] eGFR 87 >=60 mL/min/1. 73m2 LAB CHEMISTRY METHOD 06/30/2024 10:44 AM [facility] Comment:Calculation based on the Chronic Kidney Disease Epidemiology Collaboration (CKD-EPI) equation refit without adjustment for race. BUN/Creatinine Ratio 15.6 LAB CHEMISTRY METHOD 06/30/2024 10:44 AM [facility] Calcium 9.5 8.5 - 10.5 mg/dL LAB CHEMISTRY METHOD 06/30/2024 10:44 AM [facility] AST (SGOT) 43(H) 10 - 42 unit/L LAB CHEMISTRY METHOD 06/30/2024 10:44 AM [facility] ALT (SGPT) 62(H) 10 - 60 unit/L LAB CHEMISTRY METHOD 06/30/2024 10:44 AM [facility] Alkaline Phosphatase 136(H) 42 - 121 unit/L LAB CHEMISTRY METHOD 06/30/2024 10:44 AM [facility] Total Protein 7.6 6.0 - 8.0 g/dL LAB CHEMISTRY METHOD 06/30/2024 10:44 AM [facility] Albumin 3.9 3.2 - 5.0 g/dL LAB CHEMISTRY METHOD 06/30/2024 10:44 AM [facility] Total Bilirubin 0.6 0.0 - 1.4 mg/dL LAB CHEMISTRY METHOD 06/30/2024 10:44 AM [facility] Blood Venous blood specimen / Unknown Venipuncture / Unknown 06/30/2024 7:52 AM EDT 06/30/2024 7:52 AM EDT us Carol Rhoades MD LAB BLOOD ORDERABLES Final Resul t [facility] [address] [place] [address], * Depression Screening (01/07/2024) [facility] Depression Screening abstracted [facility] Provider HEALTH MAINTENANCE Final Result * Diabetes Foot Exam (10/15/2023) Pathologist [facility] Diabetes: Annual Foot Exam abstracted [facility] Provider HEALTH MAINTENANCE Final Result * Diabetes Eye Exam (08/28/2023) Pathologist [facility] Diabetes: Annual Retina Eye Exam abstracted [facility] Provider HEALTH MAINTENANCE Final Result * Pap Smear (05/07/2023) Pathologist [facility] Pap smear no interpretation , abstracted [facility] Provider HEALTH MAINTENANCE Final Result * Colonoscopy (05/08/2022) Pathologist [facility] Colonoscopy no interpretation , abstracted Anatomical Region Laterality Modality Other [facility] Provider HEALTH MAINTENANCE Final Result * Hepatitis C Screening (01/11/2018) Pathologist [facility] Hepatitis C Screening abstracted [facility] Provider HEALTH MAINTENANCE Final Result from Last [...] currently active code status orders. Care Teams Dock Superintendent Relationship Specialty Start Date End Date Carol Rhoades MD [address] [place] [address] PCP - General 08/11/1996
[2024-10-09 18:29] LABS: Lyme Disease DNA PCR NOT DETECTED (NOT DETECTED)
== END 2024-10-08 08:38 | disposition home or self-care (01) ==
LOC: HO.LAB 08:37
PROVIDERS: Visit Provider Physician Assistant Medical
DX: Z11.8 Encounter for screening for other infectious and parasitic diseases (principal)
CPT/HCPCS: 36415; 87476

== ENCOUNTER 2024-11-24 11:56 | Outpatient (AMB) | payer MEDICARE, MEDICAID, SELFPAY ==
[2024-11-24 12:02] VITALS: BP 112/80; PULSE 95; TEMP 36.9; O2SAT 95; BMI 34.1
--- NOTE | 2024-11-24 12:02 | AM.OFFWIN_ITS ---
Intake Vital Signs 11/24/24 12:02 Height 5 ft 8 in Weight 224 lb 6 oz BMI 34.1 BP 112/80 Blood Pressure Location Rt brachial Position Sitting Pulse 95 Pulse Source Pulse Oximeter Temp 98.5 F Temp Source Oral Pulse Oximetry (%) 95 Oxygen Delivery Method Room Air Intake Visit Reasons: EP Wasp sting not better after 3 days. Patient Tobacco Use Status: Never used Tobacco Seam Rubbing Machine Operator Required: No Is last menstrual period known: No Post menopausal: Yes Patient : No Allergies Sulfa (Sulfonamide Antibiotics) (SULFA (SULFONAMIDE ANTIBIOTICS)) Allergy (Unknown, Verified 11/24/24 12:09) RASH Do you need a note to return to daycare/school/sports/work: No HPI HPI Comments History of Present Illness Details History of Present Illness - The patient is a 64-year-old female pr esenting with a reaction to a wasp sting. - The patient was stung by a wasp four d ays ago, with a similar incident occurring approximately 25 years ago. - The current reaction includes signific ant swelling and itching, reminiscent of a previous severe reaction. - The patient has attempted various inte rventions including Benadryl, peroxide, baking soda, Tylenol, and ice packs to alleviate symptoms. - Despite these measures, the itching pe rsists, and the patient has been advised to consider a course of prednisone and antibiotics. - The patient regularly takes Claritin f or allergies, but it has not been effective in this instance. - She denies fever or chills. Physical Exam General: Cooperative, healthy appearing, comfortable, no acute distress and well developed Orientation: Patient oriented x3 Respiratory: Normal respiratory effort and able to speak in complete sentences. Clear to auscultation bilaterally Cardiovascular: Regular rate and rhythm. Normal S1 and S2 Skin: No rashes or lesions noted. Sting eli noted on the left forearm with erythema noted. No induration or streaking noted. Neuro: Sensation intact. Extremities: Normal to inspection. FROM of the left forearm and wrist. Hand scientific systems analyst is intact. Patient was informed and verbally consented to the use of an ambient scribe for clinic note documentation during this visit. 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 Review of Systems Const All systems reviewed & are unremarkable except as noted in HPI and below Physical Exam Vital Signs: Last Vital Signs Temp 98.5 F 11/24/24 12:02 Pulse 95 11/24/24 12:02 BP 112/80 11/24/24 12:02 Pulse Ox 95 11/24/24 12:02 Oxygen Delivery Method Room Air 11/24/24 12:02 BMI result Body Mass Index 34.1 Assessment & Plan Assessment & Plan (1) Wasp sting: Code(s): T63.461A - Toxic effect of venom of wasps, accidental (unintentional), initial encounter Qualifiers: Encounter type: initial encounter Injury intent: accidental or unintentional Qualified Code(s): T63.461A - Toxic effect of venom of wasps, accidental (unintentional), initial encounter (2) Cellulitis of arm, left: Code(s): L03.114 - Cellulitis of left upper limb Plan Most likely cellulitis from wasp bite Plan - Initiate a five-day course of prednisone to reduce inflammation and swelling. - Prescribe Keflex to address potential infection at the sting site. - Recommend continued use of antihistamines such as Zyrtec or Claritin for allergy management. - Apply mupirocin cream to the area BID for a week - follow up with PCP Medications: New mupirocin 2% 1 appl topical TID 22 grams 0RF cephalexin 500 mg PO Q6H 28 caps 0RF prednisone 40 mg (2 x 20 mg) PO DAILY 10 tabs 0RF Coding Level of Care Code Est Pt Level 3 (38398) Diagnoses Wasp sting, accidental or unintentional, initial encounter T63.461A Encounter type: initial encounter Injury intent: accidental or unintentional Cellulitis of arm, left L03.114
--- OUTSIDE RECORDS SUMMARY | 2024-11-24 13:23 | XMS_ITS ---
Author Name [facility] Organization Unknown Care Team Organization Name Specialty Phone Email Start Date End Da te [facility] Carol Rhoades Primary Care 12/13/2022 4 [facility] Carol Rhoades Primary Care 08/13/2022 4
--- OUTSIDE RECORDS SUMMARY | 2024-11-24 13:23 | XMS_ITS | Clinical Summary ---
Author Organization 175 [facility] Address [address] [place] [address] Phone Care Team Providers Care Hand Finisher Name Role Phone Carol Rhoades MD Primary Care Provider [phone] Allergies Active Allergy Reactions Criticality Noted Date [...] 1 (one) time each day. 3 Active losartan (COZAAR) 25 mg tablet Take 1 tablet (25 mg total) by mouth at bedtime. 90 each 1 4 Active atorvastatin (LIPITOR) 10 mg tablet Take 1 tablet (10 mg total) by mouth at bedtime. 90 each 1 4 Active albuterol HFA (PROAIR HFA ; PROVENTIL HFA ; VENTOLIN HFA) 90 mcg/actuation inhaler Inhale 2 puffs by mouth every 4 (four) hours if needed for wheezing or shortness of breath. 8.5 g 1 4 Active atenoloL (TENORMIN) 25 mg tablet Take 1 tablet (25 mg total) by mouth 1 (one) time each day. 90 tablet 5 Active fluticasone propionate (FLONASE) 50 mcg/actuation nasal spray Administer 1 spray into each nostril 2 (two) times a day. 48 mL 5 Active celecoxib (CeleBREX) 100 mg capsule Take 2 capsules (200 mg total) by mouth 1 (one) time each day. 5 Active hydroCHLOROthia zide 12.5 mg tablet Take 1 tablet (12.5 mg total) by mouth 1 (one) time each day. 90 tablet 5 Active venlafaxine XR (EFFEXOR-XR) 75 mg 24 hr capsule Take 1 capsule (75 mg total) by mouth 1 (one) time each day. 90 capsule 1 5 Active glucose blood (Freestyle [employer]) test strip Use to check blood sugar once daily 100 strip 1 5 Active montelukast (SINGULAIR) 10 mg tablet Take 1 tablet (10 mg total) by mouth at bedtime. 90 tablet 5 Active omeprazole (PriLOSEC) [address] capsule TAKE 1 CAPSULE BY MOUTH 1 TIME EACH DAY. DO NOT CRUSH OR CHEW. 90 capsule 1 5 Active metFORMIN XR (GLUCOPHAGE-XR) 500 mg 24 hr tablet Take 2 tablets (1,000 mg total) by mouth 1 (one) time each day with breakfast. Do not crush, chew, or split. 90 each 1 5 Active Active Problems Problem Noted Date Diagnosed Date Type 2 diabetes mellitus wit h cataract ([facility] V24, [facility] V28) 10/15/2024 Diabetic gastroparesis ([facility] V24, [facility] V28 ) 05/26/2024 Overview (05/26/2024): 09/05/23: [...] II diabetes mellitus wi th renal manifestations ([facility] V24, [facility] V28) 12/31/2017 Obesity (BMI 30.0-34.9) 01/14/2017 Eczema 01/12/2013 Tubular adenoma 07/06/2011 Overview (01/23/2024): CN 04/19 - due 5 years Anxiety 06/06/2011 Low back pain 08/10/2009 GERD (gastroesophageal reflux disease) Hypertension 03/23/2008 Allergic rhinitis 04/30/2005 Ovarian cyst, right 04/30/2005 Temporomandibular joint disorder 04/30/2005 Overview (01/23/2024): IMO update Resolved Problems Problem Noted Date Diagnosed Date Resolved Date Acute lateral meniscus tear of right knee 03/17/2024 03/20/2024 Gastroparesis 10/15/2023 07/09/2024 Encounters Date Type Department Care Team Description 10/30/2024 7:32 AM EDT - 10/30/2024 11:59 PM EDT Hospital Encounter Radiology Department - [address] [phone] Elevated liver enzymes Discharge Disposition: Home or Self Care 10/16/2024 Telephone Adult Medicine [address] [phone] Carol Rhoades MD Medication Problem 10/15/2024 10:00 AM EDT Consult Adult Medicine [address] [phone] Carol Rhoades MD Preop cardiovascular exam (Primary Dx); Primary hypertension; Moderate persistent asthma without complication; Hypercholesterolemia; Current severe episode of major depressive disorder without psychotic features, unspecified whether recurrent ([facility] V24, [facility] V28); Type 2 diabetes mellitus with cataract ([facility] V24, [facility] V28); Morbid obesity ([facility] V24, [facility] V28); Elevated liver enzymes; Cataract of both eyes, unspecified cataract type from Last 3 Months Immunizations Name Administration [...] Tubular adenoma 07/06/2011 Eczema 01/12/2013 Morbid obesity ([facility] V24, [facility] V28) 2016 DJD (degenerative joint disease) 03/06/2017 Hypercholesterolemia 04/30/2018 Fatty liver 01/30/2022 History of COVID-19 11/26/2023 Complex tear of lateral meniscus of left knee as current injury 03/10/2024 Type 2 diabetes mellitus with cataract ([facility] V24, [facility] V28) 10/15/2024 Family History Medical History Relation Name Comments Other: Other Brother Covid-19 Diabetes Father cancer ?ty pe, ESRD on dialysis, arthritis Heart attack Maternal Grandmother [address], stroke, dem entia, arthritis Arthritis Sister suicide [...] care for your loved ones. For example, childbirth and infant care teacher or elderly care for an older [...] Sign Reading Time Taken Comments Blood Pressure 110/68 10/15/2024 9:51 AM EDT Pulse 78 10/15/2024 9:51 AM EDT Temperature 35.7 C (96.3 F) 10/15/2024 9:51 AM EDT Respiratory Rate 16 10/15/2024 9:51 AM EDT Oxygen Saturation 97% 10/15/2024 9:51 AM EDT Inhaled Oxygen Concentration - - Weight 101 kg (223 lb) 10/15/2024 9:51 AM EDT Height 174 cm (5' 8.5 ) 10/15/2024 9:51 AM EDT Body Mass Index 33.41 10/15/2024 9:51 AM EDT Plan of Treatment Upcoming Encounters Date Type Department Care Team (Late st Contact Info) Description 02/16/2025 8:30 AM EST Office Visit Adult Medicine [facility] [address] [place] [address] Carol Rhoades MD [address] [place] [address] 06/01/2025 8:30 AM EST Consult Bariatric Surgery - [place] 175 [facility] [address] [place] [address] Shu Kam PA [address] [address] Health Maintenance Due Date Last Done Comments RSV Immunization Adult Patients (1 - Risk 60-74 years 1-dose series) 2020 HIV Screening 03/17/2022 COVID-19 Vaccine (2023- season) 2023 03/21/2021, 07/22/2020, 06/30/2020 Depression Screening 04/08/2024 03/17/2024, 01/07/20 24 Diabetes: Annual Retina Eye Exam 08/27/2024 08/28/2023 Diabetes: Annual Foot Exam 10/14/2024 10/15/2023 Influenza Vaccine (#1) 2024 , 12/23/2022, 01/20/2022, Additional history exists Diabetes: Blood Sugar Control Test (HGBA1C) 12/31/2024 06/30/2024, 03/09/2024, 10/08/2023, Additional history exists Social Influencers of Health Screening 03/17/2025 03/17/2024 [...] Pneumococcal Vaccine: 50+ Years Completed 07/09/2024, 01/01/2005 HIB Vaccines Aged Out [...] Procedure Name Priority Date/Time Associated Diagnosis Comments US ABDOMEN LIMITED Routine 10/30/2024 7: 43 AM EDT Elevated liver enzymes EXTERNAL ULTRASOUND REPORT 09/02/2024 EXTERNAL ULTRASOUND REPORT [...] insulin (CMS/HCC V24, CMS/HCC V28) Hypercholesterolem ia DEPRESSION SCREENING Routine 01/07/2024 DIABETES FOOT EXAM Routine 10/15/2023 DIABETES EYE EXAM Routine 08/28/2023 PAP SMEAR Routine 05/07/2023 COLONOSCOPY Routine 05/08/2022 HEPATITIS C SCREENING Routine 01/11/2018 from Last 3 Months or Most Recently Relevant to Health Maintenance Results * US Abdomen Limited (10/30/2024 7:43 AM EDT) Anatomical Region Laterality Modality Body Ultrasound 10/30/2024 7:48 AM EDT Impressions 10/30/2024 7:52 AM EDT Chronic echogenic hepatic parenchyma which is commonly seen with steatosis and can also be present with chronic hepatocellular disease. Status post cholecystectomy. No biliary ductal dilatation. POS [id number] -------- FINAL REPORT -------- Dictated By: Molly Jacome Dictated Date: 10/30/2024 07:48 ET Assigned Physician: Molly Jacome Reviewed and Electronically Signed By: Molly Jacome Signed Date: 10/30/2024 07:52 ET Workstation ID: [id number] Transcribed By: Self Edit Transcribed Date: 10/30/2024 07:48 ET Narrative 10/30/2024 7:52 AM EDT EXAM: Abdomen ultrasound, limited HISTORY: Elevated liver function tests. COMPARISON: 01/11/2018 FINDINGS: Exam limited by patient body habitus. Liver: Normal in size measuring 16.3 cm in craniocaudad extent. Parenchyma is echogenic as before. No mass detected. Gallbladder/Biliary Tree: Status post cholecystectomy. No intra or extrahepatic biliary ductal dilatation. The common bile duct measures 0.5 cm. Pancreas: Obscured by bowel gas. Right kidney: Normal in size measuring 11.0 cm in craniocaudad extent. No hydronephrosis, focal lesions, or shadowing stones. Vasculature: Hepatopedal flow in the main portal vein. Procedure Note Molly Jacome MD - 10/30/2024 EXAM: Abdomen ultrasound, limited HISTORY: Elevated liver function tests. COMPARISON: 01/11/2018 FINDINGS: Exam limited by patient body habitus. Liver: Normal in size measuring 16.3 cm in craniocaudad extent.Parenchyma is echogenic as before. No mass detected. Gallbladder/Biliary Tree: Status post cholecystectomy. No intra orextrahepatic biliary ductal dilatation. The common bile duct measures 0.5cm. Pancreas: Obscured by bowel gas. Right kidney: Normal in size measuring 11.0 cm in craniocaudad extent. Nohydronephrosis, focal lesions, or shadowing stones. Vasculature: Hepatopedal flow in the main portal vein. IMPRESSION: Chronic echogenic hepatic parenchyma which is commonly seen with steatosisand can also be present with chronic hepatocellular disease. Status post cholecystectomy. No biliary ductal dilatation. POS [id number] -------- FINAL REPORT -------- Dictated By: Molly Jacome Dictated Date: 10/30/2024 07:48 ET Assigned Physician: Molly Jacome Reviewed and Electronically Signed By: Molly Jacome Signed Date: 10/30/2024 07:52 ET Workstation ID: [id number] Transcribed By: Self Edit Transcribed Date: 10/30/2024 07:48 ET us Carol Rhoades MD IM US PROCEDURES Final Result * External Ultrasound Report (09/02/2024) Only the most recent of3 resultswithin the time period is included. Anatomical Region Laterality Modality Ultrasound us Provider [facility] US PROCEDURES Final Result * External Mammogram Report (08/24/2024) Anatomical Region Laterality Modality Mammography us Provider [facility] BI PROCEDURES Final Result * (ABNORMAL) Lipid panel with reflex to direct LDL (06/30/2024 7:52 AM EDT) Cholesterol 186 0 - 200 mg/dL LAB CHEMISTRY METHOD 06/30/2024 10:44 AM [facility] Triglycerides 168(H) 0 - 150 mg/dL LAB [facility] HDL 55 >=40 mg/dL LAB CHEMISTRY METHOD 06/30/2024 10:44 AM [facility] LDL Calculated 97 0 - 100 mg/dL LAB CHEMISTRY METHOD 06/30/2024 10:44 AM EDT [facility] VLDL Cholesterol Marco Antonio 33.6 mg/dL LAB CHEMISTRY METHOD 06/30/2024 10:44 AM [facility] Non HDL Chol. (LDL+VLDL) 131 <145 mg/dL LAB CHEMISTRY METHOD 06/30/2024 10:44 AM [facility] Chol/HDL Ratio 3.4 0.0 - 4.4 LAB CHEMISTRY METHOD 06/30/2024 10:44 AM EDT [facility] Blood Venous blood specimen / Unknown Venipuncture / Unknown 06/30/2024 7:52 AM EDT 06/30/2024 7:52 AM EDT us Carol Rhoades MD LAB BLOOD ORDERABLES Final Resul t Performing Organization Address [facility]/ZIP Co de Phone Number [facility] [address] [place] [address], [place] [phone] * (ABNORMAL) Microalbumin creatinine urine ratio (06/30/2024 7:52 AM EDT) Creatinine, Urine 536.0 mg/dL LAB CHEMISTRY METHOD 06/30/2024 11:51 AM EDT [facility] Microalb, Ur 708.0(H) 0.0 - 29.0 mg/L LAB CHEMISTRY METHOD 06/30/2024 11:51 AM EDT [facility] Microalb/Crea t Ratio 132(H) <30 mg/g creat LAB CHEMISTRY METHOD 06/30/2024 11:51 AM EDT [facility] Urine Urine specimen obtained by clean catch procedure / Unknown Non-blood Collection / Unknown 06/30/2024 7:52 AM EDT 06/30/2024 7:52 AM EDT us Carol Rhoades MD LAB URINE ORDERABLES Final Resul t Performing Organization Address City/[facility]/ZIP Co de Phone Number [facility] [address] [place] [address], [place] [phone] * (ABNORMAL) Hemoglobin A1c (06/30/2024 7:52 AM EDT) Hemoglobin A1C 7.2(H) <6.5 % LAB CHEMISTRY METHOD 06/30/2024 11:43 AM [facility] Mean Bld Glu Estim. 160 mg/dL LAB CHEMISTRY METHOD 06/30/2024 11:43 AM [facility] Blood Venous blood specimen / Unknown Venipuncture / Unknown 06/30/2024 7:52 AM EDT 06/30/2024 7:52 AM EDT us Carol Rhoades MD LAB BLOOD ORDERABLES Final Resul t [facility] [address] [place] [address], [place] [phone] * (ABNORMAL) Comprehensive metabolic panel (06/30/2024 7:52 AM EDT) Sodium 137 133 - 145 mmol/L LAB CHEMISTRY METHOD 06/30/2024 10:44 AM [facility] Potassium 3.6 3.5 - 5.5 mmol/L LAB CHEMISTRY METHOD 06/30/2024 10:44 AM [facility] Chloride 100 96 - 110 mmol/L LAB CHEMISTRY METHOD 06/30/2024 10:44 AM [facility] CO2 30 21 - 32 mmol/L LAB CHEMISTRY METHOD 06/30/2024 10:44 AM [facility] Anion Gap 7 3 - 11 LAB CHEMISTRY METHOD 06/30/2024 10:44 AM [facility] Glucose 140(H) 70 - 100 mg/dL LAB CHEMISTRY METHOD 06/30/2024 10:44 AM [facility] BUN 12 5 - 25 mg/dL LAB CHEMISTRY METHOD 06/30/2024 10:44 AM [facility] Creatinine 0.77 0.50 - 1.10 mg/dL LAB CHEMISTRY METHOD 06/30/2024 10:44 AM [facility] eGFR 87 >=60 mL/min/1. 73m2 LAB CHEMISTRY METHOD 06/30/2024 10:44 AM [facility] Comment:Calculation based on the Chronic Kidney Disease Epidemiology Collaboration (CKD-EPI) equation refit without adjustment for race. BUN/Creatinine Ratio 15.6 LAB CHEMISTRY METHOD 06/30/2024 10:44 AM [facility] Calcium 9.5 8.5 - 10.5 mg/dL LAB CHEMISTRY METHOD 06/30/2024 10:44 AM [facility] AST (SGOT) 43(H) 10 - 42 unit/L LAB CHEMISTRY METHOD 06/30/2024 10:44 AM [facility] ALT (SGPT) 62(H) 10 - 60 unit/L LAB CHEMISTRY METHOD 06/30/2024 10:44 AM [facility] Alkaline Phosphatase 136(H) 42 - 121 unit/L LAB CHEMISTRY METHOD 06/30/2024 10:44 AM [facility] Total Protein 7.6 6.0 - 8.0 g/dL LAB CHEMISTRY METHOD 06/30/2024 10:44 AM [facility] Albumin 3.9 3.2 - 5.0 g/dL LAB CHEMISTRY METHOD 06/30/2024 10:44 AM [facility] Total Bilirubin 0.6 0.0 - 1.4 mg/dL LAB CHEMISTRY METHOD 06/30/2024 10:44 AM [facility] Blood Venous blood specimen / Unknown Venipuncture / Unknown 06/30/2024 7:52 AM EDT 06/30/2024 7:52 AM EDT us Carol Rhoades MD LAB BLOOD ORDERABLES Final Resul t [facility] [address] [place] [address], * Depression Screening (01/07/2024) Pathologist [facility] Depression Screening abstracted [facility] Provider HEALTH MAINTENANCE Final Result * Diabetes Foot Exam (10/15/2023) [facility] Diabetes: Annual Foot Exam abstracted Historical Provider HEALTH MAINTENANCE Final Result * Diabetes Eye Exam (08/28/2023) [facility] Diabetes: Annual Retina Eye Exam abstracted [facility] Provider HEALTH MAINTENANCE Final Result * Pap Smear (05/07/2023) Pathologist [facility] Pap smear no interpretation , abstracted [facility] Provider HEALTH MAINTENANCE Final Result * Colonoscopy (05/08/2022) Pathologist [facility] Colonoscopy no interpretation , abstracted Anatomical Region Laterality Modality Other [facility] Provider HEALTH MAINTENANCE Final Result * Hepatitis C Screening (01/11/2018) Pathologist [facility] Hepatitis C Screening abstracted [facility] Provider HEALTH MAINTENANCE Final Result from Last [...] currently active code status orders. Care Teams Hand Finisher Relationship Specialty Start Date End Date Carol Rhoades MD [address] [place] [id number] PCP - General 08/11/1996
== END 2024-11-24 13:01 | disposition home or self-care (01) ==
PROVIDERS: PCP Internal Medicine; Visit Provider Physician Assistant Medical
DX: T63.461A Toxic effect of venom of wasps, accidental (unintentional), initial encounter (principal); L03.114 Cellulitis of left upper limb

== ENCOUNTER → 2024-11-24 11:56 | Outpatient (BNVA) | payer MEDICARE, MEDICAID, SELFPAY | PROVIDERS: PCP Internal Medicine; Visit Provider Physician Assistant Medical | DX: L03.114 Cellulitis of left upper limb (principal); T63.461A Toxic effect of venom of wasps, accidental (unintentional), initial encounter | CPT/HCPCS: 99212 ==

== ENCOUNTER → 2024-11-30 07:48 | Outpatient (REF) | payer MEDICARE, MEDICAID, SELFPAY ==
--- OUTSIDE RECORDS SUMMARY | 2024-02-04 04:15 | XMS_ITS | Continuity of Care Document ---
Author Organization [facility] Address [address] [place] [address] Phone Care Team Providers Care Wearing Apparel Assembler Name Role Phone Doug ORTA, RVT, RPVI, [...] Scan-extrem Veins; Uni/ CT & [place] S Duplex Scan-extrem Veins; Uni/ CT & [place] S Inj Scleros Solut; Mx Veins 1- CT & [place] S Ultrason Guidan Needle Bx-rad- CT & [place] S Endovenous Laser, 1st [...] Mins- CT & [place] [facility], [address] [place] [address] Dr Stovall [facility] 1000[place], [id number], [place] tel:[phone] [facility] Varicose veins of bilateral lower extremities with other complications Pruritus, unspecifiedEs sential (primary) hypertension Oct-2 4 Doug ORTA, RVT, RPVI Adam. [address] [address], [place], [place], [id number] , [place]. tel:[phone] Referring Provider: Carol Rhoades MD B., [address] [place] [address], [address]. tel:[phone] [facility], [address] [place] [address] Dr Stovall 1000Suite 1000Greg [place], [id number], [place] tel:[phone] [facility] Chronic venous hypertension (idiopathic) with other complications of bilateral lower extremity Oct- 4 Doug ORTA RVT, RPVI Robert. [address] [place] [address], [place], [place], [id number] , [place]. tel:[phone] Referring Provider: Carol Tracy, [address] [place] [address], [address]. tel:[phone] [facility], [address] [place] [address] Dr Stovall 1000Suite Greg Candelaria MD, [id number], [place] tel:[phone] CV[place] - [place] Encounter for follow-up examination after completed treatment for conditions other than malignant neVaricose veins of right lower extremity with pain Sep- 4 Doug ORTA RVT, RPVI Robert. [address] [place] [address], [place], [place], [id number] , [place]. tel:[phone] Referring Provider: Carol Tracy, [address] [place] [address], [address]. tel:[phone] [place] [facility], [address] [place] [address] Dr Stovall 1000Suite Greg Candelaria [place], [id number], [place] tel:[phone] [facility] Varicose veins of right lower extremity with other complications Sep- 4 Doug ORTA RVT, RPVI Robert. [address] [place] [address], [place], [place], [id number] , [place]. tel:[phone] Referring Provider: Carol Tracy, [address] [place] [address], [address]. tel:[phone] [facility], [address] [place] [address] Dr Stovall 1000Suite 1000Greg [place], [id number], [place] tel:[phone] [facility] Encounter for follow-up examination after completed treatment for conditions other than malignant neoplasmPain in right leg Sep- 4 Doug ORTA RVT, RPVI Robert. [address] [place] [address] [address] [address], [facility], [place], [id number] , [place]. tel:[phone] Referring Provider: Carol Tracy, [address] [place] [address], [address]. tel:[phone] [facility], [address] [place] [address] Dr Stovall 1000Suite 1000Greg [place], [id number], [place] tel:[phone] CVR - [facility] Varicose veins of right lower extremity with other complications Sep-1 4 Doug ORTA RVT, MOISÉS Medina. [address] [place] [address], [facility], [place], [id number] , [place]. [phone] Referring Provider: Carol Tracy, [address] [place] [address], [address]. tel:[phone] [facility], [address] [place] [address] [address] 1000Greg [place], [id number], [place] tel:[phone] CVR - [facility] Encounter for follow-up examination after completed treatment for conditions other than malignant neoplasmVaric ose veins of left lower extremity with pain Sep-1 4 Doug ORTA RVT, MOISÉS Medina. [address] [place] [address], [facility], [place], [id number] , [place]. tel:[phone] Referring Provider: Carol Tracy, [address] [place] [address], [address]. tel:[phone] [facility], [address] [place] [address] Dr Stovall 1000Suite 1000Greg [place], [id number], [place] tel:[phone] [facility] - [place] No Information Sep-1 0- 4 Doug ORTA RVT, MOISÉS Medina. [address] [place] [address], Suite [facility], [facility], [place], [id number] , [place]. [phone] [facility], [address] [place] [address] Dr [address] 1000Greg [place], [id number], [place] [phone] [facility] Encounter for follow-up examination after completed treatment for conditions other than malignant nePain in left leg Sep-0 4 Doug ORTA RVT, MOISÉS Medina. [address] [place] [address], [place], [place], [id number] , [place]. [phone] Referring Provider: Carol Tracy, [address] [place] [address], [address]. tel:[phone] [facility], [address] [place] [address] Dr Stovall 1000Suite 1000Greg [place], [id number], [place] tel:[phone] [facility] Varicose veins of left lower extremity with other complications Sep-0 4 Doug ORTA RVT, MOISÉS Medina. [address] [place] [address], [place], [place], [id number] , [place]. [phone] Referring Provider: Carol Tracy, [address] [place] [address], [address]. tel:[phone] [facility], [address] [place] [address] Dr Stovall 1000Suite Greg Cand[place]aria MD, [id number], [place] tel:[phone] [facility] [place] Varicose veins of left lower extremity with other complications 4 Doug ORTA RVT, MOISÉS Medina. [address] [place] [address], [place], [place], [id number] , [place]. [phone] Referring Provider: Carol Tracy, [address] [place] [address], [address]. tel:[phone] Offic/outpt E&m Estab 5 Min Trial- Telemedicine [place] & [place] [facility] [place], [address] [place] [address] Dr Stovall 1000Suite 1000Greg [place], [id number], [place] tel:[phone] [facility] - [place] Varicose veins of bilateral lower extremities with painRestless legs syndromePruri tus, unspecifiedEs sential (primary) hypertension Nov- 4 Doug ORTA RVT, MOISÉS Medina. [address] [facility], [address] [address], [place], [place], [id number] , [place]. tel:[phone] Referring Provider: Carol Tracy, [address] [place] [address], [address]. tel:[phone] Office/Oupt E&M New Pt 45 Mins- CT & [place] [facility], [address] [place] [address] [facility] [address] [address]Greg [place], [id number], [place] tel:[phone] [facility] - [place] Varicose veins of bilateral lower extremities with other complications Pain in right lower legPain in left lower legPain in right legRestless legs syndromeEssen tial (primary) hypertensionP ruritus, unspecifiedPa in in left legCramp and spasm 4 Doug ORTA RVT, MOISÉS Medina. [address] [place] [address], [address] [address], [place], [place], [id number] , [place]. tel:[phone] Referring Provider: Carol Tracy, [address] [place] [address], [address]. tel:[phone] [facility], [address] [place] [address] [address] 1000Greg [place], [id number], [place] tel:[phone] [facility] - [place] Chronic venous hypertension (idiopathic) with other complications of bilateral lower extremity 4 Doug ORTA RVT, MOISÉS Medina. [address] [place] [address], [place], [place], [id number] , [place]. tel:[phone] Referring Provider: Carol Tracy, [address] [place] [address], [address]. tel:[phone] Family History Family Member Type Diagnosis Age At Onset No Information Payers Payer name Insurance type Covered alliance party ID Authoriza tion(s) Medicare ELMER MEADOWS [id number] Medical Assistance ELMER YIFAN [id number] Social History Type Description Quantity Date Captured [...]
--- OUTSIDE RECORDS SUMMARY | 2024-11-30 07:51 | XMS_ITS | Clinical Summary ---
Author Organization [facility] Address [address] [place] [address] Phone Care Team Providers Care Market Research Coordinator Name Role Phone Carol Rhoades MD Primary Care Provider [phone] Allergies Active Allergy Reactions Criticality Noted Date [...] Type 2 diabetes mellitus wit h cataract ([facility] V24, [facility] V28) 10/15/2024 Diabetic gastroparesis ([facility] V24, [facility] V28 ) 05/26/2024 Overview (05/26/2024): 09/05/23: [...] II diabetes mellitus wi th renal manifestations ([facility] V24, [facility] V28) 12/31/2017 Obesity (BMI 30.0-34.9) 01/14/2017 [...] PM EDT Hospital Encounter Radiology Department - [address] [phone] Elevated liver enzymes Discharge Disposition: Home or Self Care 10/16/2024 Telephone Adult Medicine [address] [phone] Carol Rhoades MD Medication Problem 10/15/2024 10:00 AM EDT Consult Adult Medicine [address] [phone] Carol Rhoades MD Preop cardiovascular exam (Primary Dx); Primary hypertension; Moderate persistent asthma without complication; Hypercholesterolemia; Current severe episode of major depressive disorder without psychotic features, unspecified whether recurrent ([facility] V24, [facility] V28); Type 2 diabetes mellitus with cataract ([facility] V24, [facility] [place] V28); Morbid obesity ([facility] [place] V24, [facility] [place] V28); Elevated liver enzymes; Cataract of both [...] Tubular adenoma 07/06/2011 Eczema 01/12/2013 Morbid obesity ([facility] [place] V24, [facility] [place] V28) 2016 DJD (degenerative joint disease) 03/06/2017 Hypercholesterolemia 04/30/2018 Fatty liver 01/30/2022 History of COVID-19 11/26/2023 Complex tear of lateral meniscus of left knee as current injury 03/10/2024 Type 2 diabetes mellitus with cataract ([facility] [place] V24, [facility] [place] V28) 10/15/2024 Family History Medical History Relation Name Comments Other: Other Brother Covid-19 Diabetes Father cancer ?ty pe, ESRD on dialysis, arthritis Heart attack Maternal Grandmother 49 Diabetes Mother [place], stroke, dem entia, arthritis Arthritis Sister suicide [...] loved ones. For example, child care attendant school or elderly care for an older adult? [...] 8:30 AM EST Office Visit Adult Medicine [facility] [address] [place] [address] Carol Rhoades MD [address] [place] [address] 06/01/2025 8:30 AM EST Consult Bariatric Surgery - [facility] [address] [place] [address] Shu Kam PA [address] [address] Health Maintenance Due Date Last Done Comments [...] post cholecystectomy. No biliary ductal dilatation. POS [id number] -------- FINAL REPORT -------- Dictated By: Molly Jacome Dictated Date: 10/30/2024 07:48 ET Assigned Physician: Molly Jacome Reviewed and Electronically Signed By: Molly Jacome Signed Date: 10/30/2024 07:52 ET Workstation ID: [id number] Transcribed By: Self Edit Transcribed Date: 10/30/2024 [...] post cholecystectomy. No biliary ductal dilatation. POS [id number] -------- FINAL REPORT -------- Dictated By: Molly Jacome Dictated Date: 10/30/2024 07:48 ET Assigned Physician: Molly Jacome Reviewed and Electronically Signed By: Molly Jacome Signed Date: 10/30/2024 07:52 ET Workstation ID: [id number] Transcribed By: Self Edit Transcribed Date: 10/30/2024 [...] mg/dL LAB CHEMISTRY METHOD 06/30/2024 10:[address] [facility] Triglycerides 168(H) 0 - 150 mg/dL LAB CHE[facility]STR[facility] HDL 55 >=40 mg/dL LAB CHEMISTRY METHOD 06/30/2024 10:[address] [facility] LDL Calculated 97 0 - 100 mg/dL LAB CHEMISTRY METHOD 06/30/2024 10:44 AM EDT [facility] VLDL Cholesterol Marco Antonio 33.6 mg/dL LAB CHEMISTRY METHOD 06/30/2024 10:[address] [facility] Non HDL Chol. (LDL+VLDL) 131 <145 mg/dL LAB CHEMISTRY METHOD 06/30/2024 10:[address] [facility] Chol/HDL Ratio 3.4 0.0 - 4.4 LAB CHEMISTRY METHOD 06/30/2024 10:44 AM EDT [facility] Blood Venous blood specimen / Unknown Venipuncture / Unknown 06/30/2024 7:52 AM EDT 06/30/2024 7:52 AM EDT us Carol Rhoades MD LAB BLOOD ORDERABLES Final Resul t Performing Organization Address [facility]/ZIP Co de Phone Number [facility] [address] [place] [address], [place] [phone] * (ABNORMAL) Microalbumin creatinine urine ratio (06/30/2024 [...] Resul t Performing Organization Address City/[facility]/ZIP Co de Phone Number [facility] [address] [place] [address], [place] [phone] * (ABNORMAL) Hemoglobin A1c (06/30/2024 7:52 AM EDT) Hemoglobin A1C 7.2(H) <6.5 % LAB CHEMISTRY METHOD 06/30/2024 11:[address] [facility] Mean Bld Glu Estim. 160 mg/dL LAB CHEMISTRY METHOD 06/30/2024 11:[address] [facility] Blood Venous blood specimen / Unknown Venipuncture / Unknown 06/30/2024 7:52 AM EDT 06/30/2024 7:52 AM EDT us Carol Rhoades MD LAB BLOOD ORDERABLES Final Resul t [facility] [address] [place] [address], [place] [phone] * (ABNORMAL) Comprehensive metabolic panel (06/30/2024 7:52 AM EDT) Sodium 137 133 - 145 mmol/L LAB CHEMISTRY METHOD 06/30/2024 10:[address] [facility] Potassium 3.6 3.5 - 5.5 mmol/L LAB CHEMISTRY METHOD 06/30/2024 10:[address] [facility] Chloride 100 96 - 110 mmol/L LAB CHEMISTRY METHOD 06/30/2024 10:[address] [facility] CO2 30 21 - 32 mmol/L LAB CHEMISTRY METHOD 06/30/2024 10:[address] [facility] Anion Gap 7 3 - 11 LAB CHEMISTRY METHOD 06/30/2024 10:[address] [facility] Glucose 140(H) 70 - 100 mg/dL LAB CHEMISTRY METHOD 06/30/2024 10:[address] [facility] BUN 12 5 - 25 mg/dL LAB CHEMISTRY METHOD 06/30/2024 10:[address] [facility] Creatinine 0.77 0.50 - 1.10 mg/dL LAB CHEMISTRY METHOD 06/30/2024 10:[address] [facility] eGFR 87 >=60 mL/min/1. 73m2 LAB CHEMISTRY METHOD 06/30/2024 10:[address] [facility] Comment:Calculation based on the Chronic Kidney Disease Epidemiology Collaboration (CKD-EPI) equation refit without adjustment for race. BUN/Creatinine Ratio 15.6 LAB CHEMISTRY METHOD 06/30/2024 10:[address] [facility] Calcium 9.5 8.5 - 10.5 mg/dL LAB CHEMISTRY METHOD 06/30/2024 10:[address] [facility] AST (SGOT) 43(H) 10 - 42 unit/L LAB CHEMISTRY METHOD 06/30/2024 10:[address] [facility] ALT (SGPT) 62(H) 10 - 60 unit/L LAB CHEMISTRY METHOD 06/30/2024 10:[address] [facility] Alkaline Phosphatase 136(H) 42 - 121 unit/L LAB CHEMISTRY METHOD 06/30/2024 10:[address] [facility] Total Protein 7.6 6.0 - 8.0 g/dL LAB CHEMISTRY METHOD 06/30/2024 10:[address] [facility] Albumin 3.9 3.2 - 5.0 g/dL LAB CHEMISTRY METHOD 06/30/2024 10:[address] [facility] Total Bilirubin 0.6 0.0 - 1.4 mg/dL LAB CHEMISTRY METHOD 06/30/2024 10:[address] [facility] Blood Venous blood specimen / Unknown Venipuncture / Unknown 06/30/2024 7:52 AM EDT 06/30/2024 7:52 AM EDT us Carol Rhoades MD LAB BLOOD ORDERABLES Final Resul t [facility] [address] [place] [address], * Depression Screening (01/07/2024) Pathologist [facility] Depression Screening abstracted [facility] Provider HEALTH MAINTENANCE Final Result * Diabetes Foot Exam (10/15/2023) [facility] Diabetes: Annual Foot Exam abstracted Historical Provider HEALTH MAINTENANCE Final Result * Diabetes Eye Exam (08/28/2023) [facility] Diabetes: Annual Retina Eye Exam abstracted [facility] Provider HEALTH MAINTENANCE Final Result * Pap Smear (05/07/2023) Pathologist [facility] Pap smear no interpretation , abstracted [facility] Provider HEALTH MAINTENANCE Final Result * Colonoscopy (05/08/2022) Pathologist [facility] Colonoscopy no interpretation , abstracted Anatomical Region Laterality Modality Other [facility] Provider HEALTH MAINTENANCE Final Result * Hepatitis C Screening (01/11/2018) Pathologist [facility] Hepatitis C Screening abstracted [facility] Provider HEALTH MAINTENANCE Final Result from [...] currently active code status orders. Care Teams Market Research Coordinator Relationship Specialty Start Date End Date Carol Rhoades MD [address] [place] [id number] PCP - General 08/11/1996
== END ==
LOC: HO.SL 07:48
PROVIDERS: PCP Internal Medicine; Visit Provider Physician Assistant Medical
DX: Z13.89 Encounter for screening for other disorder (principal)

== ENCOUNTER → 2024-11-30 08:02 | Outpatient (BNV) | payer MEDICARE, MEDICAID, SELFPAY | PROVIDERS: PCP Internal Medicine; Visit Provider Psychiatry & Neurology Neurology | DX: G47.33 Obstructive sleep apnea (adult) (pediatric) (principal) | CPT/HCPCS: 95806 ==

== ENCOUNTER 2024-12-16 07:55 | Outpatient (AMB) | payer MEDICARE, MEDICAID, SELFPAY ==
[2024-12-16 08:00] VITALS: BP 116/74; PULSE 74; O2SAT 95; BMI 33.8
--- NOTE | 2024-12-16 08:00 | MHC.OFFVIS ---
Vital Signs 12/16/24 08:00 Height 5 ft 8 in Weight 222 lb 4 oz BMI 33.8 BP 116/74 Blood Pressure Location Lt brachial Position Sitting Pulse 74 Pulse Source Pulse Oximeter Pulse Oximetry (%) 95 Oxygen Delivery Method Room Air Intake Visit Reasons: 3m follow up Intake Note: Patient presents follow up Sleep/Tremor. Labs in chart. HST done 11/30. Accompanied by: Self / Same As Patient Allergies Sulfa (Sulfonamide Antibiotics) (SULFA (SULFONAMIDE ANTIBIOTICS)) Allergy (Unknown, Verified 12/16/24 08:03) RASH HPI Comments Details: 64 year old female is here for a f/u of her HST. She goes to bed at 10pm and falls asleep at 2am, she wakes up at 8am to take her grand- daughter to school. She is getting up several times at night for the bathroom. She has trouble falling asleep and waking up from sleep. She uses a mouth guard as she grinds her teeth, and this helps to limit her snoring. She gets dry mouth at night and drools which causes her to wake up 2-3 times to wipe her face and gargle with mouthwash. Her STM is poor forgets easily, lacks attention and can not concentrate. She tries to meditate daily at night, denies word finding difficulty. She denies headaches.She has acid reflux which is controlled with omeprazole. She has RLS symptoms, and has tried melatonin but has built a tolerance to it. Denies numbness, tingling, and burning pain. She notices an uncomfortable sensation bilaterally with night cramps, this can keep her up at night. 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 Vital Signs: Last Vital Signs Pulse 74 12/16/24 08:00 BP 116/74 12/16/24 08:00 Pulse Ox 95 12/16/24 08:00 Oxygen Delivery Method Room Air 12/16/24 08:00 BMI result Body Mass Index 33.8 Const General: cooperative, comfortable and no acute distress Nutritional Appearance: average body habitus Orientation/consciousness: patient oriented x3 HEENT Face and sinus: Yes other (smile is assymetric) Teeth and gingiva: other (mallampti score of 3) Throat: Yes uvula midline Eyes Alignment and Position: alignment abnormal Pupils: Equal, round and reactive pupils present Neck Neck: Yes full ROM Resp Effort & Inspection: normal respiratory effort and able to speak in complete sentences Neuro Other: postural tremor of head, facial assymetry l. side is higher than r. side. smile is assymetric. Eyes L. eye lazy? strabismus? UE bilateral tremors of hand ever since HS. Essential and Benign. Balance is always off leaning to right, and veering to the right when walking. General: patient oriented x3 and moves all extremities Cranial nerves: Yes Facial sensation intact/muscles of mastication intact, Yes Equal, round and reactive pupils present, Yes Normal accommodation reflex present, Yes Normal facial strength present, Yes Midline tongue present, Yes Ability to bilaterally rotate head present and Yes Ability to bilaterally elevate shoulders present Cognition (Neuro): normal cognition Gait exam (Neuro): Normal gait present Motor exam (neuro): 5/5 motor strength present throughout, Normal motor muscle tone present throughout, Tremors during motor activity present (bilateral UE Tremor) and Motor abnormalites present Coordination: [id number] test normal (abnormal test overshoots) and rapid alternating movements of the distal upper extremity normal Psych Appearance: grossly normal Mental Status: mental status grossly normal Speech and movement: Pressured speech present Attitude: cooperative Thought process: Normal thought process present Thought content: Normal thought content present Results Reviewed Results Reviewed: HST is pending Assessment & Plan Assessment & Plan (1) Excessive daytime sleepiness: Code(s): G47.19 - Other hypersomnia Category: Medical (2) Coarse tremors: Code(s): G25.2 - Other specified forms of tremor Category: Medical (3) Bruxism, sleep-related: Code(s): G47.63 - Sleep related bruxism Category: Medical Plan HST is pending, will call her and do a telehealth once study is available to review. Labs reviewed with pt. B12 normal, A1c is elevated to 7.3/ Vit D is normal/ LDL is elevated/ AST is elevated f/u with pcp. h/o cva will consider MRI in future and MMSE for cognitive decline if STM symptoms worsen. Will send for sleep dentistry if snoring and grinding is not corrected with cpap use. Essential Tremors bilateral uppper extremity and postural. will consider propanolol. f/u in 3 months. Patient Instructions: Sleep Hygiene provided: set a scheduled bedtime and wake time to help regulate the circadian rhythm and balance the release of pituitary hormones. Sleep in a dark room, temperatures below 68 degrees, and no devices n bed. Limit caffeinated products 6 hours prior to bed, and limit fluids 2-4 hours prior to bed. Gentle night yoga, diffusing essential oils, and playing soft music can be relaxing. Coding Level of Care Code Est Pt Level 4 (85119) Diagnoses Excessive daytime sleepiness G47.19 Coarse tremors G25.2 Bruxism, sleep-related G47.63
--- OUTSIDE RECORDS SUMMARY | 2024-12-16 08:09 | XMS_ITS | Clinical Summary ---
Author Organization 175 [facility] Address [address] [place] [address] Phone Care Team Providers Care Yard Associate Name Role Phone Carol Rhoades MD Primary Care Provider [phone] Allergies Active Allergy Reactions Criticality Noted Date [...] breath. 8.5 g 1 03/10/20 24 Active celecoxib (CeleBREX) 100 mg capsule Take [...] CHEW. 90 capsule 1 10/07/19 25 Active metFORMIN XR (GLUCOPHAGE-XR ) 500 mg 24 hr tablet Take 2 tablets (1,000 mg total) by mouth 1 (one) time each day with breakfast. Do not crush, chew, or split. 90 each 1 10/16/19 25 Active atenoloL (TENORMIN) 25 mg tablet Take 1 tablet (25 mg total) by mouth 1 (one) time each day. 90 tablet 12/02/19 25 Active fluticasone propionate (FLONASE) 50 mcg/actuation nasal spray Administer 1 spray into each nostril 2 (two) times a day if needed for rhinitis. 48 mL 12/02/19 25 Active atenoloL (TENORMIN) 25 mg tablet Take 1 tablet (25 mg total) by mouth 1 (one) time each day. 90 tablet 09/07/19 25 025 Discontinued fluticasone propionate (FLONASE) 50 mcg/actuation nasal spray Administer 1 spray into each nostril 2 (two) times a day. 48 mL 09/04/19 25 025 Discontinued Active Problems Problem Noted Date Diagnosed Date Type 2 diabetes mellitus wit h cataract ([facility] V24, [facility] V28) 10/15/2024 Diabetic gastroparesis ([facility] V24, [facility] V28 ) 05/26/2024 Overview (05/26/2024): 09/05/23: Abnormal [...] II diabetes mellitus wi th renal manifestations ([facility] V24, CMS/HCC V28) 12/31/2017 Obesity (BMI 30.0-34.9) 01/14/2017 Eczema [...] PM EDT Hospital Encounter Radiology Department - [address] [phone] Elevated liver enzymes Discharge Disposition: Home or Self Care 10/16/2024 Telephone Adult Medicine [address] [address] Carol Rhoades MD 10/15/2024 10:00 AM EDT Consult Adult Medicine [address] [address] Carol Rhoades MD Preop cardiovascular exam (Primary Dx); Primary hypertension; Moderate persistent asthma without complication; Hypercholesterolemia; Current severe episode of major depressive disorder without psychotic features, unspecified whether recurrent ([facility] V24, [facility] V28); Type 2 diabetes mellitus with cataract ([facility] V24, [facility] V28); Morbid obesity ([facility] V24, [facility] V28); Elevated liver enzymes; Cataract of both [...] Tubular adenoma 07/06/2011 Eczema 01/12/2013 Morbid obesity ([facility] V24, [facility] V28) 2016 DJD (degenerative joint disease) 03/06/2017 Hypercholesterolemia 04/30/2018 Fatty liver 01/30/2022 History of COVID-19 11/26/2023 Complex tear of lateral meniscus of left knee as current injury 03/10/2024 Type 2 diabetes mellitus with cataract ([facility] V24, [facility] V28) 10/15/2024 Family History Medical History Relation Name Comments Other: Other Brother Covid-19 Diabetes Father cancer ?ty pe, ESRD on dialysis, arthritis Heart attack Maternal Grandmother 49 Diabetes Mother [place], stroke, dem entia, arthritis Arthritis Sister suicide [...] care for your loved ones. For example, early childhood teacher assistant or elderly care for an older [...] 8:30 AM EST Office Visit Adult Medicine [facility] [address] [place], [place] [phone] Carol Rhoades MD [address] [place] [address] 06/01/2025 8:30 AM EST Consult Bariatric Surgery - [address] [place] [address] Shu Kam PA [address] [place] [address] Health Maintenance Due Date Last Done Comments RSV Immunization Adult Patients (1 - Risk 60-74 years 1-dose series) 2020 HIV Screening 03/17/2022 Depression Screening 04/08/2024 03/17/2024, 01/07/20 Diabetes: Annual Retina Eye Exam 08/27/2024 08/28/2023 Diabetes: Annual Foot Exam 10/14/2024 10/15/2023 COVID-19 Vaccine ( season) 2024 03/21/2021, 07/22/2020, 06/30/2020 Influenza Vaccine (#1) 2024 , 12/23/2022, 01/20/2022, [...] 43 AM EDT Elevated liver enzymes EXTERNAL MAMMOGRAM REPORT 08/24/2024 MICROALBUMIN CREATININE URINE RATIO Routine 06/30/2024 7:52 AM EDT Hypokalemia Type 2 diabetes mellitus with diabetic microalbuminuria, without long-term current use of insulin ([facility] V24, [facility] V28) Hypercholesterolem ia COMPREHENSIVE METABOLIC PANEL Routine 06/30/2024 7:52 AM EDT Hypokalemia Type 2 diabetes mellitus with diabetic microalbuminuria, without long-term current use of insulin (CMS/HCC V24, [facility] V28) Hypercholesterolem ia HEMOGLOBIN A1C Routine 06/30/2024 7:52 AM EDT Hypokalemia Type 2 diabetes mellitus with diabetic microalbuminuria, without long-term current use of insulin ([facility] V24, [facility] V28) Hypercholesterolem ia LIPID PANEL WITH REFLEX TO DIRECT LDL Routine 06/30/2024 7:52 AM EDT Hypokalemia Type 2 diabetes mellitus with diabetic microalbuminuria, without long-term current use of insulin ([facility] V24, [facility] V28) Hypercholesterolem ia DEPRESSION SCREENING Routine 01/07/2024 DIABETES FOOT EXAM Routine 10/15/2023 DIABETES EYE EXAM Routine 08/28/2023 HM PAP SMEAR Routine 05/07/2023 HM COLONOSCOPY Routine 05/08/2022 HEPATITIS C SCREENING Routine [...] post cholecystectomy. No biliary ductal dilatation. POS [id number] -------- FINAL REPORT -------- Dictated By: Molly Jacome Dictated Date: 10/30/2024 07:48 ET Assigned Physician: Molly Jacome Reviewed and Electronically Signed By: Molly Jacome Signed Date: 10/30/2024 07:52 ET Workstation ID: [id number] Transcribed By: Self Edit Transcribed Date: 10/30/2024 [...] post cholecystectomy. No biliary ductal dilatation. POS [id number] -------- FINAL REPORT -------- Dictated By: Molly Jacome Dictated Date: 10/30/2024 07:48 ET Assigned Physician: Molly Jacome Reviewed and Electronically Signed By: Molly Jacome Signed Date: 10/30/2024 07:52 ET Workstation ID: [id number] Transcribed By: Self Edit Transcribed Date: 10/30/2024 07:48 ET Carol Rhoades MD IM US PROCEDURES Final Result * External Mammogram Report (08/24/2024) Anatomical Region Laterality Modality Mammography us Provider [facility] IM BI PROCEDURES Final Result * (ABNORMAL) Lipid panel with reflex to direct LDL (06/30/2024 7:52 AM EDT) Cholesterol 186 0 - 200 mg/dL LAB CHEMISTRY METHOD 06/30/2024 10:44 AM [facility] Triglycerides 168(H) 0 - 150 mg/dL LAB CHEMISTRY METHOD 06/30/2024 10:44 AM EDT [facility] HDL 55 >=40 mg/dL LAB CHEMISTRY METHOD 06/30/2024 10:44 AM [facility] LDL Calculated 97 0 - 100 mg/dL LAB CHEMISTRY METHOD 06/30/2024 10:44 AM EDT [facility] VLDL Cholesterol Marco Antonio 33.6 mg/dL LAB CHEMISTRY METHOD 06/30/2024 10:44 AM EDT [facility] Non HDL Chol. (LDL+VLDL) 131 <145 mg/dL LAB CHEMISTRY METHOD 06/30/2024 10:44 AM EDT [facility] Chol/HDL Ratio 3.4 0.0 - 4.4 LAB CHEMISTRY METHOD 06/30/2024 10:44 AM EDT [facility] Blood Venous blood specimen / Unknown Venipuncture / Unknown 06/30/2024 7:52 AM EDT 06/30/2024 7:52 AM EDT Carol Rhoades MD LAB BLOOD ORDERABLES Final Resul t Performing Organization Address [facility]/ZIP Co de Phone Number [facility] [address] [place] [address], [place] [phone] * (ABNORMAL) Microalbumin creatinine urine ratio (06/30/2024 7:52 AM EDT) Creatinine, Urine 536.0 mg/dL LAB CHEMISTRY METHOD 06/30/2024 11:51 AM EDT [facility] Microalb, Ur 708.0(H) 0.0 - 29.0 mg/L LAB CHEMISTRY METHOD 06/30/2024 11:51 AM EDT [facility] Microalb/Crea t Ratio 132(H) <30 mg/g creat LAB CHEMISTRY METHOD 06/30/2024 11:51 AM EDT [facility] Urine Urine specimen obtained by clean catch procedure / Unknown Non-blood Collection / Unknown 06/30/2024 7:52 AM EDT 06/30/2024 7:52 AM EDT us Carol Rhoades MD LAB URINE ORDERABLES Final Resul t Performing Organization Address City/[facility]/ZIP Co de Phone Number [facility] [address] [place] [address], [place] [phone] * (ABNORMAL) Hemoglobin A1c (06/30/2024 7:52 AM EDT) Hemoglobin A1C 7.2(H) <6.5 % LAB CHEMISTRY METHOD 06/30/2024 11:43 AM [facility] Mean Bld Glu Estim. 160 mg/dL LAB CHEMISTRY METHOD 06/30/2024 11:43 AM [facility] Blood Venous blood specimen / Unknown Venipuncture / Unknown 06/30/2024 7:52 AM EDT 06/30/2024 7:52 AM EDT us Carol Rhoades MD LAB BLOOD ORDERABLES Final Resul t [facility] [address] [place] [address], * (ABNORMAL) Comprehensive metabolic panel (06/30/2024 7:52 AM EDT) Sodium 137 133 - 145 mmol/L LAB CHEMISTRY METHOD 06/30/2024 10:44 AM [facility] Potassium 3.6 3.5 - 5.5 mmol/L LAB CHEMISTRY METHOD 06/30/2024 10:44 AM [facility] Chloride 100 96 - 110 mmol/L LAB CHEMISTRY METHOD 06/30/2024 10:44 AM [facility] CO2 30 21 - 32 mmol/L LAB CHEMISTRY METHOD 06/30/2024 10:44 AM [facility] Anion Gap 7 3 - 11 LAB CHEMISTRY METHOD 06/30/2024 10:44 AM [facility] Glucose 140(H) 70 - 100 mg/dL LAB CHEMISTRY METHOD 06/30/2024 10:44 AM [facility] BUN 12 5 - 25 mg/dL LAB CHEMISTRY METHOD 06/30/2024 10:44 AM [facility] Creatinine 0.77 0.50 - 1.10 mg/dL LAB CHEMISTRY METHOD 06/30/2024 10:44 AM [facility] eGFR 87 >=60 mL/min/1. 73m2 LAB CHEMISTRY METHOD 06/30/2024 10:44 AM [facility] Comment:Calculation based on the Chronic Kidney Disease Epidemiology Collaboration (CKD-EPI) equation refit without adjustment for race. BUN/Creatinine Ratio 15.6 LAB CHEMISTRY METHOD 06/30/2024 10:44 AM [facility] Calcium 9.5 8.5 - 10.5 mg/dL LAB CHEMISTRY METHOD 06/30/2024 10:44 AM [facility] AST (SGOT) 43(H) 10 - 42 unit/L LAB CHEMISTRY METHOD 06/30/2024 10:44 AM [facility] ALT (SGPT) 62(H) 10 - 60 unit/L LAB CHEMISTRY METHOD 06/30/2024 10:44 AM [facility] Alkaline Phosphatase 136(H) 42 - 121 unit/L LAB CHEMISTRY METHOD 06/30/2024 10:44 AM [facility] Total Protein 7.6 6.0 - 8.0 g/dL LAB CHEMISTRY METHOD 06/30/2024 10:44 AM [facility] Albumin 3.9 3.2 - 5.0 g/dL LAB CHEMISTRY METHOD 06/30/2024 10:44 AM [facility] Total Bilirubin 0.6 0.0 - 1.4 mg/dL LAB CHEMISTRY METHOD 06/30/2024 10:44 AM [facility] Blood Venous blood specimen / Unknown Venipuncture / Unknown 06/30/2024 7:52 AM EDT 06/30/2024 7:52 AM EDT us Carol Rhoades MD LAB BLOOD ORDERABLES Final Resul t [facility] [address] [place] [address], * Depression Screening (01/07/2024) Depression Screening abstracted [facility] Provider HEALTH MAINTENANCE Final Result * Diabetes Foot Exam (10/15/2023) Pathologist [facility] Diabetes: Annual Foot Exam abstracted Historical Provider HEALTH MAINTENANCE Final Result * Diabetes Eye Exam (08/28/2023) [facility] Diabetes: Annual Retina Eye Exam abstracted [facility] Provider HEALTH MAINTENANCE Final Result * Pap Smear (05/07/2023) Pathologist [facility] Pap smear no interpretation , abstracted [facility] Provider HEALTH MAINTENANCE Final Result * Colonoscopy (05/08/2022) Pathologist [facility] Colonoscopy no interpretation , abstracted Anatomical Region Laterality Modality Other [facility] Provider HEALTH MAINTENANCE Final Result * Hepatitis C Screening (01/11/2018) Pathologist [facility] Hepatitis C Screening abstracted [facility] Provider HEALTH MAINTENANCE Final Result from [...] currently active code status orders. Care Teams Yard Associate Relationship Specialty Start Date End Date Carol Rhoades MD [address] [place] [address] PCP - General 08/11/1996
--- OUTSIDE RECORDS SUMMARY | 2024-12-16 08:09 | XMS_ITS ---
Author Organization 175 [facility] Address [address] [place] [address] Phone Care Team Providers Care Automatic Silk Screen Printer Name Role Phone Carol Rhoades MD Primary Care Provider High Risk Care Management Status:Closed (Closed) Start date:05/26/2024 Enrollment date:07/01/2024 Enrollment reason:Identified as high-risk End date:12/11/2024 Close reason:Completed program Continued Care and Services Coordination
== END 2024-12-16 08:41 | disposition home or self-care (01) ==
LOC: HO.HSMC 07:56
PROVIDERS: PCP Internal Medicine; Visit Provider Physician Assistant Medical
DX: G47.19 Other hypersomnia (principal); G25.2 Other specified forms of tremor; G47.63 Sleep related bruxism
CPT/HCPCS: 99214

== ENCOUNTER → 2024-12-16 07:55 | Outpatient (BNVA) | payer MEDICARE, MEDICAID, SELFPAY | PROVIDERS: PCP Internal Medicine; Visit Provider Physician Assistant Medical | DX: G47.63 Sleep related bruxism (principal); G25.2 Other specified forms of tremor; G47.19 Other hypersomnia | CPT/HCPCS: 99212 ==

== ENCOUNTER 2025-01-01 08:40 | Outpatient (REF) | payer MEDICARE, MEDICAID, SELFPAY ==
--- OUTSIDE RECORDS SUMMARY | 2025-01-01 09:07 | XMS_ITS | Clinical Summary ---
Author Organization 175 [facility] Address [address] [place] [address] Phone Care Team Providers Care Vice President Corporate Communications Name Role Phone Carol Rhoades MD Primary Care Provider [phone] Allergies Active Allergy Reactions Criticality Noted Date [...] (one) time each day. 07/22/19 25 Active venlafaxine XR (EFFEXOR-XR) 75 mg 24 hr capsule Take 1 capsule (75 mg total) by mouth 1 (one) time each day. 90 capsule 1 09/15/19 25 Active glucose blood (Freestyle InsuLinx) test strip Use to check blood sugar once daily 100 strip 1 09/19/19 25 Active omeprazole (PriLOSEC) [address] [...] for rhinitis. 48 mL 12/02/19 25 Active hydroCHLOROthi azide 12.5 mg tablet TAKE 1 TABLET BY MOUTH 1 TIME EACH DAY. 90 tablet 12/17/19 25 Active montelukast (SINGULAIR) 10 mg tablet TAKE 1 TABLET BY MOUTH EVERYDAY AT BEDTIME 90 tablet 1 12/22/19 25 Active hydroCHLOROthi azide 12.5 mg tablet Take 1 tablet (12.5 mg total) by mouth 1 (one) time each day. 90 tablet 09/11/19 25 025 Discontinued montelukast (SINGULAIR) 10 mg tablet Take 1 tablet (10 mg total) by mouth at bedtime. 90 tablet 09/24/19 25 025 Discontinued Active Problems Problem Noted Date Diagnosed Date Type 2 diabetes mellitus wit h cataract ([facility] V24, [facility] V28) 10/15/2024 Diabetic gastroparesis ([facility] V24, [facility] V28 ) 05/26/2024 Overview (05/26/2024): 09/05/23: Abnormal [...] II diabetes mellitus wi th renal manifestations (CMS/HCC V24, CMS/HCC V28) 12/31/2017 Obesity (BMI 30.0-34.9) [...] PM EDT Hospital Encounter Radiology Department - [address] [phone] Elevated liver enzymes Discharge Disposition: Home or Self Care 10/16/2024 Telephone Adult Medicine [address] [phone] Carol Rhoades MD 10/15/2024 10:00 AM EDT Consult Adult Medicine [address] [phone] Carol Rhoades MD Preop cardiovascular exam (Primary Dx); Primary hypertension; Moderate persistent asthma without complication; Hypercholesterolemia; Current severe episode of major depressive disorder without psychotic features, unspecified whether recurrent ([facility] V24, [facility] V28); Type 2 diabetes mellitus with cataract ([facility] V24, [facility] V28); Morbid obesity ([facility] V24, [facility] V28); Elevated liver enzymes; Cataract of [...] Tubular adenoma 07/06/2011 Eczema 01/12/2013 Morbid obesity ([facility] V24[facility] V28) 2016 DJD (degenerative joint disease) 03/06/2017 Hypercholesterolemia 04/30/2018 Fatty liver 01/30/2022 History of COVID-19 11/26/2023 Complex tear of lateral meniscus of left knee as current injury 03/10/2024 Type 2 diabetes mellitus with cataract ([facility] V24, [facility] V28) 10/15/2024 Family History Medical History Relation Name Comments Other: Other Brother Covid-19 Diabetes Father cancer ?ty pe, ESRD on dialysis, arthritis Heart attack Maternal Grandmother 49 Diabetes Mother [place], stroke, dem entia, arthritis Arthritis Sister suicide [...] care for your loved ones. For example, childcare worker or elderly care for an older [...] Care Team (Late st Contact Info) Description 01/12/2025 8:00 AM EDT Consult Endocrinology [address] [phone] Marissa Veags PA [address] [place] [phone] 02/16/2025 8:30 AM EST Office Visit Adult Medicine [address] [phone] Carol Rhoades MD [address] [place] [address] 06/01/2025 8:30 AM EST Consult Bariatric Surgery [facility] [address] [facility] [address] [place] [address] [phone] Shu Kam PA [address] [place] [phone] Health Maintenance Due Date Last Done Comments RSV Immunization Adult Patients (1 - Risk 60-74 years 1-dose series) 2020 HIV Screening 03/17/2022 Depression Screening 04/08/2024 03/17/2024, 01/07/20 24 Diabetes: [...] microalbuminuria, without long-term current use of insulin ([facility] V24, [facility] V28) Hypercholesterolem ia COMPREHENSIVE METABOLIC PANEL Routine 06/30/2024 7:52 AM EDT Hypokalemia Type 2 diabetes mellitus with diabetic microalbuminuria, without long-term current use of insulin ([facility] V24, [facility] V28) Hypercholesterolem ia HEMOGLOBIN A1C Routine 06/30/2024 7:52 AM EDT Hypokalemia Type 2 diabetes mellitus with diabetic microalbuminuria, without long-term current use of insulin ([facility] V24, [facility] V28) Hypercholesterolem ia LIPID PANEL WITH REFLEX TO DIRECT LDL Routine 06/30/2024 7:52 AM EDT Hypokalemia Type 2 diabetes mellitus with diabetic microalbuminuria, without long-term current use of insulin ([facility] V24, [facility] V28) Hypercholesterolem ia DEPRESSION SCREENING Routine 01/07/2024 [...] post cholecystectomy. No biliary ductal dilatation. POS [id number] -------- FINAL REPORT -------- Dictated By: Molly Jacome Dictated Date: 10/30/2024 07:48 ET Assigned Physician: Molly Jacome Reviewed and Electronically Signed By: Molly Jacome Signed Date: 10/30/2024 07:52 ET Workstation ID: [id number] Transcribed By: Self Edit Transcribed Date: 10/30/2024 [...] post cholecystectomy. No biliary ductal dilatation. POS [id number] -------- FINAL REPORT -------- Dictated By: Molly Jacome Dictated Date: 10/30/2024 07:48 ET Assigned Physician: Molly Jacome Reviewed and Electronically Signed By: Molly Jacome Signed Date: 10/30/2024 07:52 ET Workstation ID: [id number] Transcribed By: Self Edit Transcribed Date: 10/30/2024 07:48 ET Carol Rhoades MD [facility] US PROCEDURES Final Result * External Mammogram Report (08/24/2024) Anatomical Region Laterality Modality Mammography us Provider [facility] BI PROCEDURES Final Result * (ABNORMAL) Lipid panel with reflex to direct LDL (06/30/2024 7:52 AM EDT) Cholesterol 186 0 - 200 mg/dL LAB CHEMISTRY METHOD 06/30/2024 10:44 AM EDT [facility] Triglycerides 168(H) 0 - 150 mg/dL LAB CHEMISTRY METHOD 06/30/2024 10:44 AM EDT [facility] HDL 55 >=40 mg/dL LAB CHEMISTRY METHOD 06/30/2024 10:44 AM EDT [facility] LDL Calculated 97 0 - 100 mg/dL LAB CHEMISTRY METHOD 06/30/2024 10:44 AM T [facility] VLDL Cholesterol Marco Antonio 33.6 mg/dL LAB CHEMISTRY METHOD 06/30/2024 10:44 AM EDT [facility] Non HDL Chol. (LDL+VLDL) 131 <145 mg/dL LAB CHEMISTRY METHOD 06/30/2024 10:44 AM EDT [facility] Chol/HDL Ratio 3.4 0.0 - 4.4 LAB CHEMISTRY METHOD 06/30/2024 10:44 AM EDT [facility] Blood Venous blood specimen / Unknown Venipuncture / Unknown 06/30/2024 7:52 AM EDT 06/30/2024 7:52 AM EDT us Carol Rhoades MD LAB BLOOD ORDERABLES Final Resul t Performing Organization Address City/[facility]/ZIP Co de Phone Number [facility] [address] [place] [address], [place] [phone] * (ABNORMAL) Microalbumin creatinine urine ratio (06/30/2024 7:52 AM EDT) Creatinine, Urine 536.0 mg/dL LAB CHEMISTRY METHOD 06/30/2024 11:51 AM EDT [facility] Microalb, Ur 708.0(H) 0.0 - 29.0 mg/L LAB CHEMISTRY METHOD 06/30/2024 11:51 AM EDT [facility] Microalb/Crea t Ratio 132(H) <30 mg/g creat LAB CHEMISTRY METHOD 06/30/2024 11:51 AM EDT [facility] Urine Urine specimen obtained by clean catch procedure / Unknown Non-blood Collection / Unknown 06/30/2024 7:52 AM EDT 06/30/2024 7:52 AM EDT us Carol Rhoades MD LAB URINE ORDERABLES Final Resul t Performing Organization Address City/[facility]/ZIP Co de Phone Number [facility] [address] [place] [address], [place] [phone] * (ABNORMAL) Hemoglobin A1c (06/30/2024 7:52 AM EDT) [facility] Hemoglobin A1C 7.2(H) <6.5 % LAB CHEMISTRY METHOD 06/30/2024 11:43 AM EDT [facility] Mean Bld Glu Estim. 160 mg/dL LAB CHEMISTRY METHOD 06/30/2024 11:43 AM EDT [facility] Blood Venous blood specimen / Unknown Venipuncture / Unknown 06/30/2024 7:52 AM EDT 06/30/2024 7:52 AM EDT us Carol Rhoades MD LAB BLOOD ORDERABLES Final Resul t [facility] [address] [place] [address], * (ABNORMAL) Comprehensive metabolic panel (06/30/2024 7:52 AM EDT) [facility] Sodium 137 133 - 145 mmol/L LAB [...] [facility] Comment:Calculation based on the Chronic [...] 06/30/2024 10:[address] [facility] Total Protein 7.6 6.0 - 8.0 g/dL LAB CHEMISTRY METHOD 06/30/2024 10:[address] [facility] Albumin 3.9 3.2 - 5.0 g/dL LAB CHEMISTRY METHOD 06/30/2024 10:[address] [facility] Total Bilirubin 0.6 0.0 - 1.4 mg/dL LAB CHEMISTRY METHOD 06/30/2024 10:[address] [facility] Blood Venous blood specimen / Unknown Venipuncture / Unknown 06/30/2024 7:52 AM EDT 06/30/2024 7:52 AM EDT us Carol Rhoades MD LAB BLOOD ORDERABLES Final Resul t [facility] [address] [place] [address], * Depression Screening (01/07/2024) [facility] Depression Screening abstracted Historical Provider HEALTH MAINTENANCE Final Result * Diabetes Foot Exam (10/15/2023) [facility] Diabetes: Annual Foot Exam abstracted Historical Provider HEALTH MAINTENANCE Final Result * Diabetes Eye Exam (08/28/2023) [facility] Diabetes: Annual Retina Eye Exam abstracted [facility] Provider HEALTH MAINTENANCE Final Result * Pap Smear (05/07/2023) [facility] Pap smear no interpretation , abstracted [facility] Provider HEALTH MAINTENANCE Final Result * Colonoscopy (05/08/2022) [facility] Colonoscopy no interpretation , abstracted Anatomical Region Laterality Modality Other [facility] Provider HEALTH MAINTENANCE Final Result * Hepatitis C Screening (01/11/2018) [facility] Hepatitis C Screening abstracted [facility] Provider HEALTH MAINTENANCE Final Result from Last 3 Months or Most Recently Relevant to Health Maintenance Insurance [place]ICA[place] MEDICARE Advance Directives * Full Code - [...] currently active code status orders. Care Teams Vice President Corporate Communications Relationship Specialty Start Date End Date Carol Rhoades MD [address] [place] [address] PCP - General 08/11/1996
[2025-01-06 18:08] LABS: Apolipoprotein E Genotype E3/E3
== END 2025-01-01 08:41 | disposition home or self-care (01) ==
LOC: HO.LAB 08:40
PROVIDERS: PCP Internal Medicine; Visit Provider Physician Assistant Medical
DX: R41.89 Other symptoms and signs involving cognitive functions and awareness (principal); G30.9 Alzheimer's disease, unspecified; F02.80 Dementia in other diseases classified elsewhere, unspecified severity, without behavioral disturbance, psychotic disturbance, mood disturbance, and anxiety
CPT/HCPCS: 36415; 82542

== ENCOUNTER 2025-03-17 07:46 | Outpatient (AMB) | payer MEDICARE, MEDICAID, SELFPAY ==
--- NOTE | 2025-03-17 08:52 | A.OFFVIS_ITS ---
Vital Signs 03/17/25 09:12 Height 5 ft 8 in Weight 223 lb 6 oz BMI 34.0 Blood Pressure Location Lt brachial Position Sitting Pulse 86 Pulse Source Pulse Oximeter Temp 96.3 F L Temp Source Oral Pulse Oximetry (%) 92 Oxygen Delivery Method Room Air Intake Visit Reasons: 3 mnts f/u appt Locomotive Inspector Required: No Accompanied by: Self / Same As Patient Allergies Sulfa (Sulfonamide Antibiotics) (SULFA (SULFONAMIDE ANTIBIOTICS)) Allergy (Unknown, Verified 03/17/25 09:27) RASH HPI Comments Details: 64 year old female is here for a f/u of restless leg syndrome and moderate to severe nina. HST reviewed with pt AHI is 14, suppine AHI is 29, O2 Nadirs to 79%. NINA Compliance Report reviewed with pt. 01/2025 -02/2025 Total use is 48/51days and >=4hrs-75%, Average Usage-5hr 43min Press [id number] with Med Leaks 4.3 - 99.1 AHI-0.7/hr She washes her mask, rinses hoses, changes filters, fills reservoir with water. She notices her sleep is slowly improving, she still feels tired and is having leaks when the mask pulls off her face as she is a side sleeper and would like to try the freedom category mask. She goes to bed at 10pm and falls asleep at 2am, she wakes up at 8am to take her grand- daughter to school. She uses a mouth guard, grinds her teeth, this helps to limit snoring. She gets dry mouth at night and drools which causes her to wake up 2-3 times to wipe her face and gargle with mouthwash. Her STM is poor forgets easily, lacks attention and can not concentrate. She tries to meditate daily at night, denies word finding difficulty, and headaches. She has acid reflux which is controlled with omeprazole. She has RLS symptoms and an uncomfortable sensation bilaterally with cramps, this keeps her up at night. Denies numbness, tingling, and burning pain. She has tried melatonin but has built a tolerance to it. 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 Exam Vital Signs: Last Vital Signs Temp 96.3 F L 03/17/25 09:12 Pulse 86 03/17/25 09:12 Pulse Ox 92 03/17/25 09:12 Oxygen Delivery Method Room Air 03/17/25 09:12 BMI result Body Mass Index 34.0 Const General: cooperative, comfortable and no acute distress Nutritional Appearance: average body habitus Orientation/consciousness: patient oriented x3 HEENT Face and sinus: Yes other (smile is assymetric) Teeth and gingiva: other (mallampti score of 3) Throat: Yes uvula midline Eyes Alignment and Position: alignment abnormal Pupils: Equal, round and reactive pupils present Neck Neck: Yes full ROM Resp Effort & Inspection: normal respiratory effort and able to speak in complete sentences Neuro Other: postural tremor of head, facial assymetry l. side is higher than r. side. smile is assymetric. Eyes L. eye lazy? strabismus? UE bilateral tremors of hand ever since HS. Essential and Benign. Balance is always off leaning to right, and veering to the right when walking. General: patient oriented x3 and moves all extremities Cranial nerves: Yes Facial sensation intact/muscles of mastication intact, Yes Equal, round and reactive pupils present, Yes Normal accommodation reflex present, Yes Normal facial strength present, Yes Midline tongue present, Yes Ability to bilaterally rotate head present and Yes Ability to bilaterally elevate shoulders present Cognition (Neuro): normal cognition Gait exam (Neuro): Normal gait present Motor exam (neuro): 5/5 motor strength present throughout, Normal motor muscle tone present throughout, Tremors during motor activity present (bilateral UE Tremor) and Motor abnormalites present Coordination: [id number] test normal (abnormal test overshoots) and rapid alternating movements of the distal upper extremity normal Psych Appearance: grossly normal Mental Status: mental status grossly normal Speech and movement: Pressured speech present Attitude: cooperative Thought process: Normal thought process present Thought content: Normal thought content present Results Reviewed Results Reviewed: HST reviewed with pt AHI is 14, suppine AHI is 29, O2 Nadirs to 79%. NINA Compliance Report reviewed with pt. 01/2025 -02/2025 Total use is 48/51days and >=4hrs-75%, Average Usage-5hr 43min Press [id number] with Med Leaks 4.3- 99 AHI-0.7/hr Assessment & Plan Assessment & Plan (1) Excessive daytime sleepiness: Code(s): G47.19 - Other hypersomnia Category: Medical (2) Coarse tremors: Code(s): G25.2 - Other specified forms of tremor Category: Medical (3) Bruxism, sleep-related: Code(s): G47.63 - Sleep related bruxism Category: Medical Plan HST reviewed with pt. moderate to severe nina, she is using her APap and continues to have leaks. Will try her on the Freeedom category universal mask, airfit F20 with chinstraps. Labs reviewed with pt. B12 normal, A1c is elevated to 7.3/ Vit D is normal/ LDL is elevated/ AST is elevated f/u with pcp. h/o cva will consider MRI in future and MMSE for cognitive decline if STM symptoms not improved. Will send for sleep dentistry if snoring and grinding is not corrected with cpap use, recommend xylitol tablets for dry mouth. Essential Tremors bilateral uppper extremity and postural. will consider propanolol in the future if bothersome to pt. f/u in 3 months. Patient Instructions: Sleep Hygiene provided: set a scheduled bedtime and wake time to help regulate the circadian rhythm and balance the release of pituitary hormones. Sleep in a dark room, temperatures below 68 degrees, and no devices n bed. Limit caffeinated products 6 hours prior to bed, and limit fluids 2-4 hours prior to bed. Gentle night yoga, diffusing essential oils, and playing soft music can be relaxing. Coding Level of Care Code Est Pt Level 4 (48011) Diagnoses Excessive daytime sleepiness G47.19 Coarse tremors G25.2 Bruxism, sleep-related G47.63
[2025-03-17 09:12] VITALS: PULSE 86; TEMP 35.7; O2SAT 92; BMI 34.0
== END 2025-03-17 10:27 | disposition home or self-care (01) ==
LOC: HO.HSMC 07:47
PROVIDERS: PCP Internal Medicine; Visit Provider Physician Assistant Medical
DX: G47.19 Other hypersomnia (principal); G25.2 Other specified forms of tremor; G47.63 Sleep related bruxism
CPT/HCPCS: 99214

== ENCOUNTER → 2025-03-17 07:46 | Outpatient (BNVA) | payer MEDICARE, MEDICAID, SELFPAY | PROVIDERS: PCP Internal Medicine; Visit Provider Physician Assistant Medical | DX: G47.63 Sleep related bruxism (principal); G47.19 Other hypersomnia; G25.2 Other specified forms of tremor | CPT/HCPCS: 99212 ==